=== PATIENT | female | born 1935 | race Caucasian/White ===

== ENCOUNTER 2021-11-02 17:23 | Inpatient (IN) ==
--- NOTE | 2021-11-02 17:31 | ED.ABDFE ---
HPI Time Seen Time Seen by Provider: 11/02/21 17:29 HPI Comment HPI Comment: Acute onset of chest "pressure" earlier today which has moved to her lt upper abd/epigastric region; n/v x one; last bm yesterday which was wnl; she does not feel any heartburn nor has she been burping; no prior episodes like this and no hx heart disease; she was recently released from hospital in [facility] in [place] after a bout with urosepsis. Family member says she's had intermittent abd pain and recurrent n/v for the past three weeks or so. PMH PMH Past Medical History: Diabetes, Dyslipidemia, Hypertension and Hypothyroidism ROS Review of Systems Constitutional: No Symptoms Reported Eyes: No Symptoms Reported ENTM: No Symptoms Reported Respiratoy: No Symptoms Reported Cardiovascular: No Symptoms Reported Genitourinary: No Symptoms Reported Neurological: No Symptoms Reported Musculoskeletal: No Symptoms Reported Integumentary: No Symptoms Reported Hematologic/Lymphatic: No Symptoms Reported Endocrine: No Symptoms Reported Psychiatric: No Symptoms Reported PE Vital Signs Vitals: Temperature 98.3 F Pulse Rate 89 Respiratory Rate 18 Blood Pressure 151/64 O2 Sat by Pulse Oximetry 99 General Limitations: No Limitations and Language Barrier General Appearance: Alert and In No Apparent Distress Head Head Exam: Normal Inspection Eyes Eye exam: Normal Appearance ENT ENT Exam: Normal Exam Neck Neck Exam: Normal Inspection Chest Chest Inspection: Normal Inspection Respiratory Respiratory Exam: Normal Lung Sounds Bilat Cardiovascular Cardiovascular Exam: Regular Rate and Normal Rhythm Abdominal Exam Abdominal Exam: Normal Inspection, Normal Bowel Sounds, Soft and Tenderness (epigastrium) Rectal Rectal Exam: Deferred Back Back Exam: Normal Inspection Extremeties Extremities Exam: Normal Inspection Neurologic Neurological Exam: Alert and Oriented X3 Psychiatric Psychiatric Exam: Normal Affect and Normal Mood Skin Skin Exam: Warm, Dry and Intact MDM Differential Diagnosis Differential Diagnosis- Considerations may include:: Diverticular disease, Gastritus/PUD, Gastroenteritis, Ischemic Bowel and Pancreatitis COURSE Consultation Call Returned: 21:00 (Dr Luke accepts admission.) ROR Labs Reviewed Result Diagrams: 11/02/21 17:40 11/02/21 17:40 Laboratory: WBC 11.8 X10^3/uL (3.6-10.0) H 11/02/21 17:40 RBC 3.63 X10^6/uL (3.5-5.4) 11/02/21 17:40 Hgb 9.4 g/dL (12.0-16.0) L 11/02/21 17:40 Hct 29.2 % (36.0-47.0) L 11/02/21 17:40 MCV 80.3 fL (80.0-100.0) 11/02/21 17:40 MCH 25.9 pg (27.0-34.0) L 11/02/21 17:40 MCHC 32.3 g/dL (33.0-35.0) L 11/02/21 17:40 RDW 20.8 % (11.6-16.5) H 11/02/21 17:40 Plt Count 494 X10^3/uL (150.0-450.0) H 11/02/21 17:40 Plt Count Comment Increased (ADEQUATE) A 11/02/21 17:40 MPV 7.2 fL (7.4-11.0) L 11/02/21 17:40 Neut % (Auto) 73.9 % (42.0-75.0) 11/02/21 17:40 Lymph % (Auto) 18.4 % (21.0-51.0) L 11/02/21 17:40 [place] % (Auto) 5.7 % (0.0-13.0) 11/02/21 17:40 Eos % (Auto) 1.3 % (0.9-2.9) 11/02/21 17:40 Baso % (Auto) 0.7 % (0.2-1.0) 11/02/21 17:40 Neut # (Auto) 8.7 x10^3/uL (2.2-4.8) H 11/02/21 17:40 Lymph # (Auto) 2.2 X10^3/uL (1.3-2.9) 11/02/21 17:40 [place] # (Auto) 0.7 x10^3/uL (0.3-0.8) 11/02/21 17:40 Eos # (Auto) 0.2 x10^3/uL (0.0-0.2) 11/02/21 17:40 Baso # (Auto) 0.1 X10^3/uL (0.0-0.1) 11/02/21 17:40 Absolute Nucleated RBC 0.0 /100WBC 11/02/21 17:40 Plt Morphology Comment Normal (NORMAL) 11/02/21 17:40 RBC Morphology Abnormal (NORMAL) A 11/02/21 17:40 Hypochromasia Slight A 11/02/21 17:40 Anisocytosis Slight A 11/02/21 17:40 Sodium 138 mmol/L (136-145) 11/02/21 17:40 Corrected Sodium 142 mmol/L (136-145) 11/02/21 17:40 Potassium 3.2 mmol/L (3.5-5.1) L 11/02/21 17:40 Chloride 97 mmol/L (98-107) L 11/02/21 17:40 Carbon Dioxide 30.5 mmol/L (21-32) 11/02/21 17:40 BUN 21 mg/dL (7-18) H 11/02/21 17:40 Creatinine 0.94 mg/dL (0.55-1.02) 11/02/21 17:40 Est GFR (MDRD) Af Amer > 60 (>60) 11/02/21 17:40 Est GFR (MDRD) Non-Af > 60 (>60) 11/02/21 17:40 Glucose 257 mg/dL (65-99) H 11/02/21 17:40 Calcium 8.6 mg/dL (8.5-10.1) 11/02/21 17:40 Corrected Calcium 9.9 mg/dL (8.5-10.1) 11/02/21 17:40 Total Bilirubin 0.50 mg/dL (0.2-1.0) 11/02/21 17:40 AST 423 Units/L (15-37) H 11/02/21 17:40 ALT 149 Units/L (12-78) H 11/02/21 17:40 Alkaline Phosphatase 345 Units/L (46-116) H 11/02/21 17:40 Creatine Kinase 27 Units/L (26-192) 11/02/21 17:40 CK-MB (CK-2) < 1.0 ng/mL (0-4.0) 11/02/21 17:40 CK/CKMB % Calc 3.7 % (<4) 11/02/21 17:40 Troponin I < 0.02 ng/mL (0-1.5) 11/02/21 17:40 Total Protein 6.5 g/dL (6.4-8.2) 11/02/21 17:40 Albumin 2.4 g/dL (3.4-5.0) L 11/02/21 17:40 Globulin 4.1 g/dL (2.5-4.5) 11/02/21 17:40 Albumin/Globulin Ratio 0.6 Ratio (1.1-2.1) L 11/02/21 17:40 Lipase 2875 Units/L (73-393) H 11/02/21 17:40 SARS CoV-2 RNA Rapid CLARA Positive (NEGATIVE) A 11/02/21 21:37 XRAY XRAY Interpreted by: Radiologist X-ray Results: ct abd/pelvis: - Status post cholecystectomy andhysterectomy - Urinary bladder contains a Del Rosario catheter - Right-sided double-J stent is noted - Moderate to severe constipation is present Mild peripancreatic inflammatory changes are seen around the head and uncinate process of the pancreas. This may represent acute pancreatitis Opioid Opioid Risk Tool Total: 0 Total Score Risk Category: Low Risk Copyright: Jhonny BEE predicting aberrant behaviors Diagnosis Discharge Problem: Acute hypokalemia, COVID-19 Acute pancreatitis Qualifiers: Pancreatitis type: idiopathic Acute pancreatitis complication: no infection or necrosis Qualified Code(s): K85.00 - Idiopathic acute pancreatitis without necrosis or infection Instructions Instructions: Acute Pancreatitis, [id number] Forms: [facility] Patient Portal Social Distancing
[2021-11-02] MEDS ORDERED: MORPHINE SULFATE INJ 2 MG INJ IVP ONE (17:46)
[2021-11-02] MEDS ORDERED: ZOFRAN INJ 4 MG VIAL IVP ONE (17:46)
[2021-11-02 17:47] LABS: BASOPHILS # (AUTO) 0.1 X10^3/uL (0.0-0.1); BASOPHILS % (AUTO) 0.7 % (0.2-1.0); EOSINOPHILS # (AUTO) 0.2 x10^3/uL (0.0-0.2); EOSINOPHILS % (AUTO) 1.3 % (0.9-2.9); HEMATOCRIT 29.2 % (36.0-47.0); HEMOGLOBIN 9.4 g/dL (12.0-16.0); LYMPHOCYTES # (AUTO) 2.2 X10^3/uL (1.3-2.9); LYMPHOCYTES % (AUTO) 18.4 % (21.0-51.0); MEAN CORPUSCULAR HEMOGLOBIN 25.9 pg (27.0-34.0); MEAN CORPUSCULAR HGB CONC 32.3 g/dL (33.0-35.0); MEAN CORPUSCULAR VOLUME 80.3 fL (80.0-100.0); MEAN PLATELET VOLUME 7.2 fL (7.4-11.0); MONOCYTES # (AUTO) 0.7 x10^3/uL (0.3-0.8); MONOCYTES % (AUTO) 5.7 % (0.0-13.0); NEUTROPHILS # (AUTO) 8.7 x10^3/uL (2.2-4.8); NEUTROPHILS % (AUTO) 73.9 % (42.0-75.0); PLATELET COUNT 494 X10^3/uL (150.0-450.0); RED BLOOD COUNT 3.63 X10^6/uL (3.5-5.4); RED CELL DISTRIBUTION WIDTH 20.8 % (11.6-16.5); WHITE BLOOD COUNT 11.8 X10^3/uL (3.6-10.0)
[2021-11-02] MEDS ORDERED: MORPHINE SULFATE INJ 2 MG INJ ONE (17:49)
[2021-11-02] MEDS ORDERED: ZOFRAN INJ 4 MG VIAL ONE (17:49)
[2021-11-02 17:59] LABS: ANISOCYTOSIS SLIGHT; HYPOCHROMASIA SLIGHT; PLATELET MORPHOLOGY COMMENT NORMAL (NORMAL)
[2021-11-02 18:21] LABS: ALANINE AMINOTRANSFERASE 149 Units/L (12-78); ALBUMIN 2.4 g/dL (3.4-5.0); ALKALINE PHOSPHATASE 345 Units/L (46-116); ASPARTATE AMINO TRANSFERASE 423 Units/L (15-37); BLOOD UREA NITROGEN 21 mg/dL (7-18); CALCIUM 8.6 mg/dL (8.5-10.1); CARBON DIOXIDE 30.5 mmol/L (21-32); CHLORIDE 97 mmol/L (98-107); CKMB % 3.7 % (<4); COR CA(FOR HYPOALB) 9.9 mg/dL (8.5-10.1); COR NA(FOR HYPERGLY) 142 mmol/L (136-145); CREATINE KINASE 27 Units/L (26-192); CREATINE KINASE MB < 1.0 ng/mL (0-4.0); CREATININE 0.94 mg/dL (0.55-1.02); SODIUM 138 mmol/L (136-145); TOTAL PROTEIN 6.5 g/dL (6.4-8.2); TROPONIN I < 0.02 ng/mL (0-1.5); eGFR NON BLACK RACES > 60 (>60)
[2021-11-02 18:40] LABS: LIPASE 2875 Units/L (73-393)
[2021-11-02] MEDS ORDERED: NS 1,000 ML IV 1,000 ML IV ONE (18:46)
[2021-11-02] MEDS ORDERED: K-RIDER 10 MEQ/NS 100 ML 10 MEQ/100 ML BAG IV ONE ×2 (18:53→19:58)
[2021-11-02] MEDS ORDERED: NS 1,000 ML IV 1,000 ML ONE ×2 (19:58→23:42)
[2021-11-02] MEDS ORDERED: NEURONTIN CAP 300 MG PO ONE (20:10)
--- NOTE | 2021-11-02 20:24 | CT ---
STUDY: CT ABDOMEN AND PELVIS WITH IV CONTRASTCOMPARISON: NoneTECHNIQUE: Axial images were acquired of the abdomen and pelvis with IV contrast. Sagittal and coronal reformatted images were provided. All images were reviewed in a variety of windows and levels.RADIATION REDUCTION TECHNIQUE: Automated exposure control, adjustment of the mA and/or kV according to patient size, or iterative reconstruction techniques were used.HISTORY: Chest pain and epigastric pain. Patient also has left upper quadrant pain.FINDINGS:LOWER THORAX: The visualized lower lung zones are clear. The heart size is within normal limits. There is no evidence of a pericardial effusion.LIVER: No intrahepatic focal lesions are seen. No evidence of intrahepatic or extrahepatic duct dilation.GALLBLADDER: The gallbladder has been surgically removed.SPLEEN: The spleen enhances homogenously and is unremarkable.PANCREAS: Mild peripancreatic inflammatory changes are seen around the head and uncinate process of the pancreas.AGRENAL GLANDS: The adrenal glands enhance homogenously and are unremarkable.: The kidneys enhance homogenously. Their collecting system is of normal caliber.Right-sided double-J stent is seen with proximal tip coiled in the renal pelvis and distal tip coiled in the urinary bladder. The patient is status post hysterectomy.URINARY BLADDER: The urinary bladder contains a Del Rosario catheter and is empty and collapsed.VESSELS: The abdominal aorta is normal in size without evidence of aneurysm or dissection. The celiac artery, superior mesenteric artery, cheesh-na renal arteries, and inferior mesenteric artery are patent.GI: The stomach and small bowel is unremarkable. Moderate to severe constipation is noted. There are no inflammatory changes seen in the right lower quadrant to suggest secondary signs of acute appendicitis. The appendix is not visualized on this exam.LYMPHNODES AND MESSENTERY: There is no evidence of retroperitoneal lymphadenopathy.BONES: The visualized bones demonstrate degenerative changes. There are no concerning lytic or blastic lesions identified.IMPRESSION:- Status post cholecystectomy and hysterectomy- Urinary bladder contains a Del Rosario catheter- Right-sided double-J stent is noted- Moderate to severe constipation is present- Mild peripancreatic inflammatory changes are seen around the head and uncinate process of the pancreas. This may represent acute pancreatitisElectronically signed by: Hong Gifford (Nov 02, 2021 20:23:01)
[2021-11-02] MEDS ORDERED: NovoLIN R (or HumuLIN R) SUBCUT PRN (21:23)
[2021-11-02] MEDS ORDERED: NS 1,000 ML IV 1,000 ML IV SCH (22:00)
--- NOTE | 2021-11-02 22:31 | RAD ---
STUDY: FRONTAL VIEW CHESTCOMPARISON: NoneHISTORY: CHEST PAINS, ABD PAINSFINDINGS:No focal consolidation is seen.The heart size is within normal limits.The mediastinum is unremarkable.There is no evidence of pleural effusion or gross pneumothorax.The trachea is midline.IMPRESSION:1. No focal consolidation is seen.2. The heart size is normal.Electronically signed by: Hong Gifford (Nov 02, 2021 22:30:16)
[2021-11-02] MEDS: NS 1,000 ML IV 1,000 ML IV SCH (23:45)
[2021-11-03 02:39] VITALS: BMI 35.4
[2021-11-03 05:35] LABS: BASOPHILS # (AUTO) 0.1 X10^3/uL (0.0-0.1); BASOPHILS % (AUTO) 0.4 % (0.2-1.0); EOSINOPHILS # (AUTO) 0.1 x10^3/uL (0.0-0.2); EOSINOPHILS % (AUTO) 0.6 % (0.9-2.9); HEMATOCRIT 26.8 % (36.0-47.0); HEMOGLOBIN 8.8 g/dL (12.0-16.0); LYMPHOCYTES # (AUTO) 2.2 X10^3/uL (1.3-2.9); LYMPHOCYTES % (AUTO) 16.3 % (21.0-51.0); MEAN CORPUSCULAR HEMOGLOBIN 26.2 pg (27.0-34.0); MEAN CORPUSCULAR HGB CONC 32.9 g/dL (33.0-35.0); MEAN CORPUSCULAR VOLUME 79.6 fL (80.0-100.0); MEAN PLATELET VOLUME 7.4 fL (7.4-11.0); MONOCYTES # (AUTO) 0.8 x10^3/uL (0.3-0.8); MONOCYTES % (AUTO) 5.6 % (0.0-13.0); NEUTROPHILS # (AUTO) 10.6 x10^3/uL (2.2-4.8); NEUTROPHILS % (AUTO) 77.1 % (42.0-75.0); PLATELET COUNT 478 X10^3/uL (150.0-450.0); RED BLOOD COUNT 3.37 X10^6/uL (3.5-5.4); RED CELL DISTRIBUTION WIDTH 20.8 % (11.6-16.5); WHITE BLOOD COUNT 13.7 X10^3/uL (3.6-10.0)
[2021-11-03 05:38] LABS: ALANINE AMINOTRANSFERASE 597 Units/L (12-78); ALBUMIN 2.3 g/dL (3.4-5.0); ALKALINE PHOSPHATASE 528 Units/L (46-116); AMYLASE 329 Units/L (25-115); ASPARTATE AMINO TRANSFERASE 906 Units/L (15-37); BLOOD UREA NITROGEN 19 mg/dL (7-18); CALCIUM 8.2 mg/dL (8.5-10.1); CARBON DIOXIDE 30.9 mmol/L (21-32); CHLORIDE 99 mmol/L (98-107); COR CA(FOR HYPOALB) 9.6 mg/dL (8.5-10.1); COR NA(FOR HYPERGLY) 141 mmol/L (136-145); CREATININE 0.84 mg/dL (0.55-1.02); MAGNESIUM 1.7 mg/dL (1.7-2.9); SODIUM 138 mmol/L (136-145); TOTAL PROTEIN 6.3 g/dL (6.4-8.2); eGFR NON BLACK RACES > 60 (>60)
[2021-11-03 05:55] LABS: LIPASE 1742 Units/L (73-393)
[2021-11-03 06:02] LABS: ANISOCYTOSIS 1+; HYPOCHROMASIA SLIGHT; PLATELET MORPHOLOGY COMMENT NORMAL (NORMAL)
[2021-11-03] MEDS: NS 1,000 ML IV 1,000 ML IV SCH ×4 (08:50→22:07)
[2021-11-03] MEDS: NEURONTIN CAP 300 MG PO SCH ×4 (10:04→21:01)
[2021-11-03] MEDS ORDERED: MORPHINE SULFATE INJ 2 MG INJ IVP PRN (11:54)
[2021-11-03] MEDS ORDERED: POTASSIUM CHL 40 MEQ/NS 0.45% 500 ML IV PRN (15:21)
[2021-11-03] MEDS ORDERED: POTASSIUM CHL 60 MEQ/NS 0.45% 500 ML IV PRN (15:21)
[2021-11-03] MEDS ORDERED: KLOR-CON PO PRN (15:21)
[2021-11-03] MEDS ORDERED: POTASSIUM CHLORIDE LIQ 20 MEQ UDC PO PRN (15:21)
[2021-11-03] MEDS ORDERED: MICRO K EXTEN CAP 10 MEQ PO PRN (15:21)
[2021-11-03] MEDS ORDERED: K-RIDER 10 MEQ/NS 100 ML 10 MEQ/100 ML BAG IV PRN (15:21)
[2021-11-03] MEDS: MAGNESIUM SULFATE 1 GRAM/100 mL PREMIX 1 G/100 ML BAG IV PRN ×2 (16:53→20:31)
[2021-11-03] MEDS: K-DUR TAB 20 MEQ PO PRN (16:53)
[2021-11-03] MEDS: NovoLIN R (or HumuLIN R) SUBCUT PRN (21:00)
[2021-11-04] MEDS: NEURONTIN CAP 300 MG PO SCH ×2 (05:04→14:05)
[2021-11-04 05:11] LABS: BASOPHILS # (AUTO) 0.1 X10^3/uL (0.0-0.1); BASOPHILS % (AUTO) 0.6 % (0.2-1.0); EOSINOPHILS # (AUTO) 0.1 x10^3/uL (0.0-0.2); EOSINOPHILS % (AUTO) 1.3 % (0.9-2.9); HEMATOCRIT 25.5 % (36.0-47.0); HEMOGLOBIN 8.5 g/dL (12.0-16.0); LYMPHOCYTES # (AUTO) 1.9 X10^3/uL (1.3-2.9); LYMPHOCYTES % (AUTO) 18.6 % (21.0-51.0); MEAN CORPUSCULAR HEMOGLOBIN 26.8 pg (27.0-34.0); MEAN CORPUSCULAR HGB CONC 33.5 g/dL (33.0-35.0); MONOCYTES # (AUTO) 0.8 x10^3/uL (0.3-0.8); MONOCYTES % (AUTO) 7.4 % (0.0-13.0); NEUTROPHILS # (AUTO) 7.6 x10^3/uL (2.2-4.8); NEUTROPHILS % (AUTO) 72.1 % (42.0-75.0); PLATELET COUNT 463 X10^3/uL (150.0-450.0); RED BLOOD COUNT 3.18 X10^6/uL (3.5-5.4); RED CELL DISTRIBUTION WIDTH 20.2 % (11.6-16.5); WHITE BLOOD COUNT 10.5 X10^3/uL (3.6-10.0)
[2021-11-04 05:21] LABS: ALANINE AMINOTRANSFERASE 290 Units/L (12-78); ALBUMIN 2.1 g/dL (3.4-5.0); ALKALINE PHOSPHATASE 362 Units/L (46-116); ASPARTATE AMINO TRANSFERASE 208 Units/L (15-37); BLOOD UREA NITROGEN 12 mg/dL (7-18); CARBON DIOXIDE 30.1 mmol/L (21-32); CHLORIDE 103 mmol/L (98-107); COR CA(FOR HYPOALB) 9.5 mg/dL (8.5-10.1); COR NA(FOR HYPERGLY) 143 mmol/L (136-145); MAGNESIUM 2.2 mg/dL (1.7-2.9); SODIUM 140 mmol/L (136-145); TOTAL PROTEIN 5.8 g/dL (6.4-8.2); eGFR NON BLACK RACES > 60 (>60)
[2021-11-04 05:40] LABS: ANISOCYTOSIS 1+; HYPOCHROMASIA SLIGHT; PLATELET MORPHOLOGY COMMENT NORMAL (NORMAL)
[2021-11-04 05:54] LABS: AMYLASE 72 Units/L (25-115); LIPASE 279 Units/L (73-393)
[2021-11-04] MEDS: NovoLIN R (or HumuLIN R) SUBCUT PRN (05:55)
[2021-11-04] MEDS: K-DUR TAB 20 MEQ PO PRN ×2 (05:55→14:05)
[2021-11-04] MEDS: NS 1,000 ML IV 1,000 ML IV SCH ×2 (07:52→14:59)
--- NOTE | 2021-11-04 08:07 | DR.H&P ---
H&P History & Physical for Day of: H&P Date: 11/03/21 Chief Complaint Chief Complaint: Abdominal pain Allergies Allergies Allergy/AdvReac Type Severity Reaction Status Date / Time codeine Allergy Verified 11/02/21 17:49 History of Present Illness History of Present Illness: Pt is a 85 year old female past medical history of Hypertension, Diabetes, Hypothyroidism, presenting after having worsening abdominal pain. She reports symptoms started last few days. Denies fevers, chills, shortness of breath. Labs/imaging: Wbc 13.7, Hgb 8.8, Plt 478, Na 138, K 3.4, Creatinine 0.84, Glucose 241, AST 906, ALT 597, ALP 528, Amylase 329, Lipase 1742, Cardiac enzymes negative, CXR: no acute cardiopulmonary disease. CTAP: Moderate to severe constipation is present Mild peripancreatic inflammatory changes are seen around the head and uncinate process of the pancreas. This may represent acute pancreatitis. Pt was admitted for acute pancreatitis. She was started on IVF NS@125ml/h, home medications restarted. She was initially NPO and will advance diet to clear liquids as tolerated. She denies any respiratory distress and does not require any supplemental oxygen at this time. Will continue to monitor and follow up labs in the morning. Past Medical History Past Medical History: Diabetes, Dyslipidemia, Hypertension and Hypothyroidism Past Surgical History Surgical History: Cholecystectomy, W[employer] Surgery and Ortho Surgery Social History Does patient currently use any type of tobacco product: No Have you used tobacco products in the last 12 months: No Type of Tobacco Use: None Does any household member use tobacco: No Alcohol Use: None Drug Use: None Medications Home Medications: codeine Allergy (Verified 11/02/21 17:49) CONTINUE taking the following medications allopurinol 100 mg PO DAILY 11/02/21 [History] artificial tears(hypromellose) [GenTeal Tears Severe Gel] 1 drp OPHTHALMIC (EYE) QHS 11/02/21 [History] atorvastatin 10 mg PO QHS 11/02/21 [History] calcium carbonate [Calcium 600] 600 mg PO TID 11/02/21 [History] carboxymethylcell-hypromellose 1 drp OPHTHALMIC (EYE) QID 11/02/21 [History] cholecalciferol (vitamin D3) 25 mcg PO DAILY 11/02/21 [History] docusate sodium [Colace] 100 mg PO BID 11/02/21 [History] gabapentin 300 mg PO TID 11/02/21 [History] hydralazine 50 mg PO BID 11/02/21 [History] hydrocodone-acetaminophen 1 tab PO Q6H PRN 11/02/21 [History] insulin NPH and regular human [Novolin 70-30 FlexPen U-100] 20 unit SUBCUT BID 11/02/21 [History] insulin lispro [Humalog Pen] 0 sliding scale dose SUBCUT ACHS 11/02/21 [History] lactobacillus bifidus 6 cell PO BID 11/02/21 [History] lactulose 30 g PO DAILY 11/02/21 [History] levothyroxine 75 mcg PO DAILY 11/02/21 [History] linaclotide [Linzess] 145 mcg PO QAM 11/02/21 [History] multivitamin 1 tab PO BID 11/02/21 [History] pantoprazole [Protonix] 40 mg PO BID 11/02/21 [History] polyethylene glycol 3350 17 g PO BID 11/02/21 [History] tamsulosin 0.4 mg PO QHS 11/02/21 [History] tramadol 50 mg PO BID 11/02/21 [History] Labs Result Diagrams: 11/04/21 03:52 11/04/21 03:52 Labs: Laboratory WBC 10.5 X10^3/uL (3.6-10.0) H 11/04/21 03:52 RBC 3.18 X10^6/uL (3.5-5.4) L 11/04/21 03:52 Hgb 8.5 g/dL (12.0-16.0) L 11/04/21 03:52 Hct 25.5 % (36.0-47.0) L 11/04/21 03:52 MCV 80.0 fL (80.0-100.0) 11/04/21 03:52 MCH 26.8 pg (27.0-34.0) L 11/04/21 03:52 MCHC 33.5 g/dL (33.0-35.0) 11/04/21 03:52 RDW 20.2 % (11.6-16.5) H 11/04/21 03:52 Plt Count 463 X10^3/uL (150.0-450.0) H 11/04/21 03:52 Plt Count Comment Increased (ADEQUATE) A 11/04/21 03:52 MPV 8.0 fL (7.4-11.0) 11/04/21 03:52 Neut % (Auto) 72.1 % (42.0-75.0) 11/04/21 03:52 Lymph % (Auto) 18.6 % (21.0-51.0) L 11/04/21 03:52 [place] % (Auto) 7.4 % (0.0-13.0) 11/04/21 03:52 Eos % (Auto) 1.3 % (0.9-2.9) 11/04/21 03:52 Baso % (Auto) 0.6 % (0.2-1.0) 11/04/21 03:52 Neut # (Auto) 7.6 x10^3/uL (2.2-4.8) H 11/04/21 03:52 Lymph # (Auto) 1.9 X10^3/uL (1.3-2.9) 11/04/21 03:52 [place] # (Auto) 0.8 x10^3/uL (0.3-0.8) 11/04/21 03:52 Eos # (Auto) 0.1 x10^3/uL (0.0-0.2) 11/04/21 03:52 Baso # (Auto) 0.1 X10^3/uL (0.0-0.1) 11/04/21 03:52 Absolute Nucleated RBC 0.0 /100WBC 11/04/21 03:52 Plt Morphology Comment Normal (NORMAL) 11/04/21 03:52 RBC Morphology Abnormal (NORMAL) A 11/04/21 03:52 Hypochromasia Slight A 11/04/21 03:52 Anisocytosis 1+ A 11/04/21 03:52 Sodium 140 mmol/L (136-145) 11/04/21 03:52 Corrected Sodium 143 mmol/L (136-145) 11/04/21 03:52 Potassium 3.2 mmol/L (3.5-5.1) L 11/04/21 03:52 Chloride 103 mmol/L (98-107) 11/04/21 03:52 Carbon Dioxide 30.1 mmol/L (21-32) 11/04/21 03:52 BUN 12 mg/dL (7-18) 11/04/21 03:52 Creatinine 0.70 mg/dL (0.55-1.02) 11/04/21 03:52 Est GFR (MDRD) Af Amer > 60 (>60) 11/04/21 03:52 Est GFR (MDRD) Non-Af > 60 (>60) 11/04/21 03:52 Glucose 218 mg/dL (65-99) H 11/04/21 03:52 POC Glucose (mg/dL) 298 mg/dL (65-99) H 11/03/21 19:36 Calcium 8.0 mg/dL (8.5-10.1) L 11/04/21 03:52 Corrected Calcium 9.5 mg/dL (8.5-10.1) 11/04/21 03:52 Magnesium 2.2 mg/dL (1.7-2.9) 11/04/21 03:52 Total Bilirubin 0.20 mg/dL (0.2-1.0) 11/04/21 03:52 AST 208 Units/L (15-37) H 11/04/21 03:52 ALT 290 Units/L (12-78) H 11/04/21 03:52 Alkaline Phosphatase 362 Units/L (46-116) H 11/04/21 03:52 Creatine Kinase 27 Units/L (26-192) 11/02/21 17:40 CK-MB (CK-2) < 1.0 ng/mL (0-4.0) 11/02/21 17:40 CK/CKMB % Calc 3.7 % (<4) 11/02/21 17:40 Troponin I < 0.02 ng/mL (0-1.5) 11/02/21 17:40 Total Protein 5.8 g/dL (6.4-8.2) L 11/04/21 03:52 Albumin 2.1 g/dL (3.4-5.0) L 11/04/21 03:52 Globulin 3.7 g/dL (2.5-4.5) 11/04/21 03:52 Albumin/Globulin Ratio 0.6 Ratio (1.1-2.1) L 11/04/21 03:52 Amylase 72 Units/L (25-115) 11/04/21 03:52 Lipase 279 Units/L (73-393) 11/04/21 03:52 SARS CoV-2 RNA Rapid CLARA Positive (NEGATIVE) A 11/02/21 21:37 Review of Systems Constitutional: Weakness Eyes: No Symptoms Reported ENT: No Symptoms Reported Respiratory: No Symptoms Reported Cardiovascular: No Symptoms Reported Gastrointestinal: Nausea, Abdominal Pain and Constipation; denies Diarrhea Genitourinary: No Symptoms Reported Musculoskeletal: No Symptoms Reported Skin: No Symptoms Reported Neurological: No Symptoms Reported Physical Exam Vital Signs: Temperature 98.4 F Pulse Rate [Right Radial] 67 Pulse Rate 89 Respiratory Rate 15 Blood Pressure [Left Arm] 116/77 Blood Pressure 151/64 O2 Sat by Pulse Oximetry 100 Oriented: Normal Eyes: Normal Ear: Normal Nose: Normal Throat: Normal Respiratory: Clear Throughout Cardiovascular: Normal : Normal Auscultation: Bowel Sounds: Normal Palpation: Normal Tenderness: Epigastric, Periumbilical and Moderate Skin: Normal Musculoskeletal: Normal Psychiatric: Normal Mood Description: Calm and Appropriate Affect: Normal Speech Pattern: Clear and Appropriate Assessment/Plan (1) Acute pancreatitis: Qualifiers: Acute pancreatitis complication: no infection or necrosis Pancreatitis type: idiopathic Qualified Code(s): K85.00 - Idiopathic acute pancreatitis without necrosis or infection Status: Acute Plan: IVF, Clear liquid diet (2) COVID-19: Status: Acute Review H&P Reviewed: Yes Patient was examined?: Yes
[2021-11-04 16:06] VITALS: BP 133/63
--- NOTE | 2021-11-05 10:07 | PCM.DCPLAN ---
DISCHARGE SUMMARY Admission Date Date of Admission: 11/02/21 Discharge Date Discharge Date: 11/04/21 Admission Diagnoses (1) Acute pancreatitis: Status: Acute (2) COVID-19: Status: Acute Discharge Diagnoses Discharge Diagnosis: 1. Pancreatitis resolved 2. Covid-19 Negative. 3. Abnormal LFT's 4. Anemia 5. HTN 6. DM2 Discharge Medications Discharge Medications: Home Medication List GenTeal Tears Severe Gel 1 drp OPHTHALMIC (EYE) QHS 11/02/21 [History] Linzess 145 mcg PO QAM 11/02/21 [History] Novolin 70-30 FlexPen U-100 20 unit SUBCUT BID 11/02/21 [History] allopurinol 100 mg PO DAILY 11/02/21 [History] atorvastatin 10 mg PO QHS 11/02/21 [History] calcium carbonate [Calcium 600] 600 mg PO TID 11/02/21 [History] carboxymethylcell-hypromellose 1 drp OPHTHALMIC (EYE) QID 11/02/21 [History] cholecalciferol (vitamin D3) 25 mcg PO DAILY 11/02/21 [History] docusate sodium [Colace] 100 mg PO BID 11/02/21 [History] gabapentin 300 mg PO TID 11/02/21 [History] hydralazine 50 mg PO BID 11/02/21 [History] hydrocodone-acetaminophen 1 tab PO Q6H PRN 11/02/21 [History] insulin lispro 0 sliding scale dose SUBCUT ACHS 11/02/21 [History] lactobacillus bifidus 6 cell PO BID 11/02/21 [History] lactulose 30 g PO DAILY 11/02/21 [History] levothyroxine 75 mcg PO DAILY 11/02/21 [History] multivitamin 1 tab PO BID 11/02/21 [History] pantoprazole [Protonix] 40 mg PO BID 11/02/21 [History] polyethylene glycol 3350 17 g PO BID 11/02/21 [History] tamsulosin 0.4 mg PO QHS 11/02/21 [History] tramadol 50 mg PO BID 11/02/21 [History] Prescriptions: Hospital Course Vital Signs: Temperature 98.0 F Pulse Rate [Right Radial] 71 Pulse Rate 89 Respiratory Rate 19 Blood Pressure [Left Arm] 133/63 Blood Pressure 151/64 O2 Sat by Pulse Oximetry 99 Latest Lab Results: Laboratory Last Values WBC 10.5 X10^3/uL (3.6-10.0) H 11/04/21 03:52 RBC 3.18 X10^6/uL (3.5-5.4) L 11/04/21 03:52 Hgb 8.5 g/dL (12.0-16.0) L 11/04/21 03:52 Hct 25.5 % (36.0-47.0) L 11/04/21 03:52 MCV 80.0 fL (80.0-100.0) 11/04/21 03:52 MCH 26.8 pg (27.0-34.0) L 11/04/21 03:52 MCHC 33.5 g/dL (33.0-35.0) 11/04/21 03:52 RDW 20.2 % (11.6-16.5) H 11/04/21 03:52 Plt Count 463 X10^3/uL (150.0-450.0) H 11/04/21 03:52 Plt Count Comment Increased (ADEQUATE) A 11/04/21 03:52 MPV 8.0 fL (7.4-11.0) 11/04/21 03:52 Neut % (Auto) 72.1 % (42.0-75.0) 11/04/21 03:52 Lymph % (Auto) 18.6 % (21.0-51.0) L 11/04/21 03:52 [place] % (Auto) 7.4 % (0.0-13.0) 11/04/21 03:52 Eos % (Auto) 1.3 % (0.9-2.9) 11/04/21 03:52 Baso % (Auto) 0.6 % (0.2-1.0) 11/04/21 03:52 Neut # (Auto) 7.6 x10^3/uL (2.2-4.8) H 11/04/21 03:52 Lymph # (Auto) 1.9 X10^3/uL (1.3-2.9) 11/04/21 03:52 [place] # (Auto) 0.8 x10^3/uL (0.3-0.8) 11/04/21 03:52 Eos # (Auto) 0.1 x10^3/uL (0.0-0.2) 11/04/21 03:52 Baso # (Auto) 0.1 X10^3/uL (0.0-0.1) 11/04/21 03:52 Absolute Nucleated RBC 0.0 /100WBC 11/04/21 03:52 Plt Morphology Comment Normal (NORMAL) 11/04/21 03:52 RBC Morphology Abnormal (NORMAL) A 11/04/21 03:52 Hypochromasia Slight A 11/04/21 03:52 Anisocytosis 1+ A 11/04/21 03:52 Sodium 140 mmol/L (136-145) 11/04/21 03:52 Corrected Sodium 143 mmol/L (136-145) 11/04/21 03:52 Potassium 3.4 mmol/L (3.5-5.1) L 11/04/21 09:13 Chloride 103 mmol/L (98-107) 11/04/21 03:52 Carbon Dioxide 30.1 mmol/L (21-32) 11/04/21 03:52 BUN 12 mg/dL (7-18) 11/04/21 03:52 Creatinine 0.70 mg/dL (0.55-1.02) 11/04/21 03:52 Est GFR (MDRD) Af Amer > 60 (>60) 11/04/21 03:52 Est GFR (MDRD) Non-Af > 60 (>60) 11/04/21 03:52 Glucose 218 mg/dL (65-99) H 11/04/21 03:52 POC Glucose (mg/dL) 209 mg/dL (65-99) H 11/04/21 16:18 Calcium 8.0 mg/dL (8.5-10.1) L 11/04/21 03:52 Corrected Calcium 9.5 mg/dL (8.5-10.1) 11/04/21 03:52 Magnesium 2.2 mg/dL (1.7-2.9) 11/04/21 03:52 Total Bilirubin 0.20 mg/dL (0.2-1.0) 11/04/21 03:52 AST 208 Units/L (15-37) H 11/04/21 03:52 ALT 290 Units/L (12-78) H 11/04/21 03:52 Alkaline Phosphatase 362 Units/L (46-116) H 11/04/21 03:52 Creatine Kinase 27 Units/L (26-192) 11/02/21 17:40 CK-MB (CK-2) < 1.0 ng/mL (0-4.0) 11/02/21 17:40 CK/CKMB % Calc 3.7 % (<4) 11/02/21 17:40 Troponin I < 0.02 ng/mL (0-1.5) 11/02/21 17:40 Total Protein 5.8 g/dL (6.4-8.2) L 11/04/21 03:52 Albumin 2.1 g/dL (3.4-5.0) L 11/04/21 03:52 Globulin 3.7 g/dL (2.5-4.5) 11/04/21 03:52 Albumin/Globulin Ratio 0.6 Ratio (1.1-2.1) L 11/04/21 03:52 Amylase 72 Units/L (25-115) 11/04/21 03:52 Lipase 279 Units/L (73-393) 11/04/21 03:52 SARS CoV-2 RNA Rapid CLARA Negative (NEGATIVE) 11/04/21 08:39 Hospital Course: The patient improved fairly rapidly after IV fluid was given and pain control. Over the 3 days while she was in the hospital her Lipase and Amylase normalized. She was adamant on the 2nd hospital day about going home. Cardiac enzymes were done and all were negative. CT abdomen showed fat stranding around the pancreas consistant with acute pancreatitis. By the 3rd hospital day she insisted of going home. She is stable at this time. It is noted that she is anemic with a Hb of 8.5 but her vitals are stable. She denies melena. Repeat Covid testing today revealed a negative Covid test. Del Rosario cath was removed and bladder training was done. The patient urinated later in the day and she was discharged home. She will be following up with me in a week. Instructions Instructions: Hypokalemia COVID-19 Frequently Asked Questions Acute Pancreatitis, [id number] How to Wear and Take Off Your Mask - [facility] (02/28/2021) Pancreatitis Eating Plan 10 Things You Can Do to Manage Your COVID-19 Symptoms at Home - [facility] (05/30/2020) COVID-19 Acute Pancreatitis Forms: Excuse From Work or School Precautions for COVID19 [facility] Patient Portal Social Distancing
== END 2021-11-04 17:50 | disposition home health service (06) | DRG 177 ==
LOC: ER 17:23 → U 23:40 → INTOOBSV 23:40 → ICU 11-03 11:45
PROVIDERS: ADMIT Internal Medicine; ATTEND Family Medicine

== ENCOUNTER 2021-12-10 12:25 | Inpatient (IN) ==
[2021-12-10 12:43] VITALS: BMI 34.0
[2021-12-10] MEDS ORDERED: NS 500 ML IV 500 ML IV ONE ×3 (13:42→19:30)
--- NOTE | 2021-12-10 13:46 | DR.FEVERAD ---
HPI Time seen Time Seen by Provider: 12/10/21 13:37 PCP Primary Care Physician: DR. VERDUZCO Complaints/Symptoms Chief Complaint Doctor Comments: 86 y/o female started running low grade temp yesterday. + increasing weakness, was a bit confused, having a slight cough. No abdominal pain, N/V, diarrhea. Has a string odor to her urine, but no dysuria or frequency. Having pain of the left heel, has a pressure sore there. Pain is sharp, constant, does not radiate. Is worse with palpation or movement of her left foot, nothing makes it better. Chief Complaint:: PT ARRIVED PER [facility] FROM HOME. EMS STATES PT'S FAMILY MEMBER STATES PT HAS BEEN RUNNY FEVER ONSET EARLIER TODAY. PT ALSO C/O CHRONIC LEFT FOOT PAIN. PT HAS BED SORE NOTED TO BACK OF HEEL OF LEFT FOOT. BANDAGE NOTED, CLEAN & DRY. COVID-19 Coronavirus risk:travel/contact w/high risk person: No Has patient experienced Coronavirus symptoms: No Coronavirus symptoms experienced: Fever Nurses notes reviewed Nurses Notes Review: Yes Source History Provided: Patient Mode of Arrival Mode of Arrival: EMS Timing Onset of Chief Complaint: 12/10/21 PMH PMH Past Medical History: Yes Past Medical History: Diabetes, Dyslipidemia, Hypertension and Hypothyroidism Past Surgical History: Yes Surgical History: Cholecystectomy, [employer] Surgery and Ortho Surgery Family History History of Family Medical Conditions: Yes Family Medical History: Diabetes Mellitus Social History Do you use any recreational Drugs:: No Travel Risk Coronavirus risk:travel/contact w/high risk person: No Has patient experienced Coronavirus symptoms: No Infectious screening Have you traveled outside the country in the last 6 months?: No Isolation: Standard ROS Review of Systems Constitutional: Fever and Weakness Eyes: No Symptoms Reported ENTM: No Symptoms Reported Respiratoy: Non-Productive Cough; negative Short of Breath Cardiovascular: No Symptoms Reported Gastrointestinal/Abdominal: No Symptoms Reported Genitourinary: Other (+ strong odor to urine) Neurological: Weakness Musculoskeletal: Left and Foot Integumentary: No Symptoms Reported Hematologic/Lymphatic: No Symptoms Reported Psychiatric: No Symptoms Reported All Other Systems: Reviewed and Negative PE Vital Signs Vitals: Temperature 99.8 F Pulse Rate 86 Respiratory Rate 47 Blood Pressure [Left Arm] 133/63 Blood Pressure 118/87 O2 Sat by Pulse Oximetry 100 General Limitations: No Limitations General Appearance: Alert and In No Apparent Distress Head Head Exam: Normal Inspection Eyes Eye exam: Normal Appearance, PERRL and EOMI ENT ENT Exam: Normal Exam Neck Neck Exam: Normal Inspection and Full ROM; negative Tenderness Respiratory Respiratory Exam: Normal Lung Sounds Bilat; negative Accessory Muscle Use and Respiratory Distress Respiratory Exam: Bilateral: Clear to Auscultation Cardiovascular Cardiovascular Exam: Regular Rate, Normal Rhythm and Normal Heart Sounds Abdominal Exam Abdominal Exam: Normal Inspection, Normal Bowel Sounds and Soft; negative Tenderness Extremities Extremities Exam: Other (Left heel - + chronic decubitus, medial, 3 x 5 cms with local tenderness. ) Neurologic Neurological Exam: Alert, Oriented X3 and CN II-XII Intact; negative Motor Sensory Deficit Psychiatric Psychiatric Exam: Normal Affect Skin Skin Exam: Warm and Dry MDM Differential Diagnosis Differential Diagnosis: UTI and Viral syndrome (Covid,flu) COURSE Treatment Treatment: 86 y/o female ill x 1-2 days. W/u initiated. Pt with UTI, osteomyelitis. Given IV antibiotics. Discussed with her covering attending. Will be admitted, ROR Labs Reviewed Laboratory Results Reviewed?: Yes Result Diagrams: 12/12/21 05:44 12/12/21 05:44 Laboratory: 12/10/21 14:03 Urine,Catheterized Urine Culture - Preliminary 12/10/21 14:04 Blood Blood Culture - Preliminary 12/10/21 14:00 Blood Blood Culture - Preliminary WBC 21.1 X10^3/uL (3.6-10.0) H 12/10/21 14:00 RBC 3.77 X10^6/uL (3.5-5.4) 12/10/21 14:00 Hgb 9.3 g/dL (12.0-16.0) L 12/10/21 14:00 Hct 28.6 % (36.0-47.0) L 12/10/21 14:00 MCV 76.0 fL (80.0-100.0) L 12/10/21 14:00 MCH 24.8 pg (27.0-34.0) L 12/10/21 14:00 MCHC 32.6 g/dL (33.0-35.0) L 12/10/21 14:00 RDW 21.1 % (11.6-16.5) H 12/10/21 14:00 Plt Count 508 X10^3/uL (150.0-450.0) H 12/10/21 14:00 Plt Count Comment Increased (ADEQUATE) A 12/10/21 14:00 MPV 7.6 fL (7.4-11.0) 12/10/21 14:00 Neut % (Auto) 80.8 % (42.0-75.0) H 12/10/21 14:00 Lymph % (Auto) 12.4 % (21.0-51.0) L 12/10/21 14:00 [place] % (Auto) 5.6 % (0.0-13.0) 12/10/21 14:00 Eos % (Auto) 0.3 % (0.9-2.9) L 12/10/21 14:00 Baso % (Auto) 0.9 % (0.2-1.0) 12/10/21 14:00 Neut # (Auto) 17.1 x10^3/uL (2.2-4.8) H 12/10/21 14:00 Lymph # (Auto) 2.6 X10^3/uL (1.3-2.9) 12/10/21 14:00 [place] # (Auto) 1.2 x10^3/uL (0.3-0.8) H 12/10/21 14:00 Eos # (Auto) 0.1 x10^3/uL (0.0-0.2) 12/10/21 14:00 Baso # (Auto) 0.2 X10^3/uL (0.0-0.1) H 12/10/21 14:00 Absolute Nucleated RBC 0.0 /100WBC 12/10/21 14:00 Total Counted 100 12/10/21 14:00 Neutrophils % (Manual) 81 % (39-76) H 12/10/21 14:00 Lymphocytes % (Manual) 13 % (13-43) 12/10/21 14:00 Monocytes % (Manual) 5 % (4-9) 12/10/21 14:00 Eosinophils % (Manual) 1 % (0-6) 12/10/21 14:00 Plt Morphology Comment Normal (NORMAL) 12/10/21 14:00 RBC Morphology Abnormal (NORMAL) A 12/10/21 14:00 Anisocytosis 1+ A 12/10/21 14:00 Sodium 141 mmol/L (136-145) 12/10/21 14:04 Corrected Sodium TNP 12/10/21 14:04 Potassium 2.6 mmol/L (3.5-5.1) L* 12/10/21 14:04 Chloride 101 mmol/L (98-107) 12/10/21 14:04 Carbon Dioxide 32.3 mmol/L (21-32) H 12/10/21 14:04 BUN 19 mg/dL (7-18) H 12/10/21 14:04 Creatinine 1.48 mg/dL (0.55-1.02) H 12/10/21 14:04 Est GFR (MDRD) Af Amer 43 (>60) L 12/10/21 14:04 Est GFR (MDRD) Non-Af 36 (>60) L 12/10/21 14:04 Glucose 80 mg/dL (65-99) 12/10/21 14:04 Lactic Acid 1.3 mmol/L (0.4-2.0) 12/10/21 14:04 Calcium 8.0 mg/dL (8.5-10.1) L 12/10/21 14:04 Corrected Calcium 9.6 mg/dL (8.5-10.1) 12/10/21 14:04 Magnesium 1.6 mg/dL (1.7-2.9) L 12/10/21 14:00 Total Bilirubin 0.50 mg/dL (0.2-1.0) 12/10/21 14:04 AST 13 Units/L (15-37) L 12/10/21 14:04 ALT 9 Units/L (12-78) L 12/10/21 14:04 Alkaline Phosphatase 87 Units/L (46-116) 12/10/21 14:04 Total Protein 6.6 g/dL (6.4-8.2) 12/10/21 14:04 Albumin 2.0 g/dL (3.4-5.0) L 12/10/21 14:04 Globulin 4.6 g/dL (2.5-4.5) H 12/10/21 14:04 Albumin/Globulin Ratio 0.4 Ratio (1.1-2.1) L 12/10/21 14:04 Lipase 24 Units/L (73-393) L 12/10/21 14:04 Specimen Type Catherized urine 12/10/21 14:03 Urine Color Yellow (YELLOW) 12/10/21 14:03 Urine Appearance Cloudy (CLEAR) 12/10/21 14:03 Urine pH 7.0 (5.0 - 8.0) 12/10/21 14:03 Ur Specific [place] 1.005 (1.000-1.030) 12/10/21 14:03 Urine Protein 3+ (NEGATIVE) 12/10/21 14:03 Urine Glucose (UA) Negative (NEGATIVE) 12/10/21 14:03 Urine Ketones Negative (NEGATIVE) 12/10/21 14:03 Urine Occult Blood 4+ (NEGATIVE) 12/10/21 14:03 Urine Nitrite Negative (NEGATIVE) 12/10/21 14:03 Urine Bilirubin Negative (NEGATIVE) 12/10/21 14:03 Urine Urobilinogen Normal (NORMAL) 12/10/21 14:03 Ur Leukocyte Esterase 3+ (NEGATIVE) 12/10/21 14:03 Urine RBC 10-20 /HPF (0-3) A 12/10/21 14:03 Urine WBC 30-50 /HPF (0-5) A 12/10/21 14:03 Ur Squamous Epith Cells Rare /HPF (NEGATIVE) 12/10/21 14:03 Urine Bacteria Trace /HPF (NEGATIVE) 12/10/21 14:03 Ur Culture Indicated? Yes/culture set up 12/10/21 14:03 SARS-CoV-2 (PCR) Negative (NEGATIVE) 12/10/21 14:03 Influenza Type A (PCR) Negative (NEGATIVE) 12/10/21 14:03 Influenza Type B (PCR) Negative (NEGATIVE) 12/10/21 14:03 RSV (PCR) Negative (NEGATIVE) 12/10/21 14:03 Other Results Comments: Elevated WBC, + WBCs in the urine c/w UTI. Opioid Opioid Risk Tool Age (Hugo box if 16-45): No History of Preadolescent Sexual Abuse: No Total: 0 Total Score Risk Category: Low Risk Copyright: Jhonny BEE predicting aberrant behaviors Diagnosis Discharge Problem: Acute UTI, Osteomyelitis of foot, left, acute
[2021-12-10 14:23] LABS: BASOPHILS # (AUTO) 0.2 X10^3/uL (0.0-0.1); BASOPHILS % (AUTO) 0.9 % (0.2-1.0); EOSINOPHILS # (AUTO) 0.1 x10^3/uL (0.0-0.2); EOSINOPHILS % (AUTO) 0.3 % (0.9-2.9); HEMATOCRIT 28.6 % (36.0-47.0); HEMOGLOBIN 9.3 g/dL (12.0-16.0); LYMPHOCYTES # (AUTO) 2.6 X10^3/uL (1.3-2.9); LYMPHOCYTES % (AUTO) 12.4 % (21.0-51.0); MEAN CORPUSCULAR HEMOGLOBIN 24.8 pg (27.0-34.0); MEAN CORPUSCULAR HGB CONC 32.6 g/dL (33.0-35.0); MEAN PLATELET VOLUME 7.6 fL (7.4-11.0); MONOCYTES # (AUTO) 1.2 x10^3/uL (0.3-0.8); MONOCYTES % (AUTO) 5.6 % (0.0-13.0); NEUTROPHILS # (AUTO) 17.1 x10^3/uL (2.2-4.8); NEUTROPHILS % (AUTO) 80.8 % (42.0-75.0); RED BLOOD COUNT 3.77 X10^6/uL (3.5-5.4); RED CELL DISTRIBUTION WIDTH 21.1 % (11.6-16.5); WHITE BLOOD COUNT 21.1 X10^3/uL (3.6-10.0)
--- NOTE | 2021-12-10 14:39 | RAD ---
HISTORYEMS STATES PT'S FAMILY MEMBER STATES PT HAS BEEN RUNNING FEVER ONSET EARLIER TODAY. PT ALSO C/O CHRONIC LEFT FOOT PAIN. PT HAS BED SORE NOTED TO BACK OF HEEL OF LEFT FOOT. BANDAGE NOTED, CLEAN & DRY. surgeries,: gb, cateracts, tubal and ortho.brdiabeticSTUDYCHEST, 1 VIEWCOMPARISONPortable chest November 02, 2021.FINDINGSThe trachea is midline. The cardiac silhouette is unremarkable. The lungs are clear without focal infiltrate or effusion. The bony thorax is unremarkable.IMPRESSIONNo acute cardiopulmonary findings and no change from prior film November 02, 2021..Electronically signed by: JONO GUTIERREZ (Dec 10, 2021 14:38:20)
--- NOTE | 2021-12-10 14:41 | RAD ---
HISTORYC/O CHRONIC LEFT FOOT PAIN. PT HAS BED SORE NOTED TO BACK OF HEEL OF LEFT FOOT. BANDAGE NOTED, CLEAN & DRY. surgeries,: gb, cateracts, tubal and ortho.brdiabeticSTUDYFOOT, LEFTCOMPARISONNoneFINDINGSNo acute cortical disruption i.e. the fracture or dislocation can be identified. There is however disruption of the cortex along the plantar aspect of the calcaneus with overlying soft tissue swelling. Osteomyelitis along the plantar aspect of the calcaneus over a length 1.3 cm is suspect. Recommend either MRI or nuclear medicine imaging. Vascular calcifications are observed. No significant soft tissue swelling or injury can be seen. The visualized portions of the talus and calcaneus are unremarkable.IMPRESSIONCortical bone loss along the plantar aspect the calcaneus just proximal to the plantar calcaneal spur and soft tissue swelling along the plantar aspect of the calcaneus. Osteomyelitis could not be excluded. Additional imaging i.e. MRI or nuclear medicine is recommended.Electronically signed by: JONO GUTIERREZ (Dec 10, 2021 14:40:39)
[2021-12-10 14:43] LABS: BILIRUBIN,URINE NEGATIVE (NEGATIVE); BLOOD/HEMOGLOBIN,URINE 4+ (NEGATIVE); GLUCOSE, URINE NEGATIVE (NEGATIVE); KETONES,URINE NEGATIVE (NEGATIVE); LEUKOCYTE ESTERASE ,URINE 3+ (NEGATIVE); NITRITES,URINE NEGATIVE (NEGATIVE); PROTEIN,URINE 3+ (NEGATIVE); UROBILINOGEN,URINE NORMAL (NORMAL)
[2021-12-10 14:49] LABS: ANISOCYTOSIS 1+; PLATELET MORPHOLOGY COMMENT NORMAL (NORMAL)
[2021-12-10 14:58] LABS: APPEARANCE,URINE CLOUDY (CLEAR); BACTERIA,URINE TRACE /HPF (NEGATIVE); COLOR,URINE YELLOW (YELLOW); SQUAMOUS EPITHELIAL CELL,UR RARE /HPF (NEGATIVE)
[2021-12-10 14:59] LABS: ALANINE AMINOTRANSFERASE 9 Units/L (12-78); ALKALINE PHOSPHATASE 87 Units/L (46-116); ASPARTATE AMINO TRANSFERASE 13 Units/L (15-37); BLOOD UREA NITROGEN 19 mg/dL (7-18); CARBON DIOXIDE 32.3 mmol/L (21-32); COR CA(FOR HYPOALB) 9.6 mg/dL (8.5-10.1); CREATININE 1.48 mg/dL (0.55-1.02); LIPASE 24 Units/L (73-393); TOTAL PROTEIN 6.6 g/dL (6.4-8.2); eGFR NON BLACK RACES 36 (>60)
[2021-12-10 15:52] LABS: CHLORIDE 101 mmol/L (98-107); SODIUM 141 mmol/L (136-145)
[2021-12-10] MEDS ORDERED: KETAMINE HCL ONE (17:13)
[2021-12-10] MEDS ORDERED: VERSED ONE (17:13)
[2021-12-10] MEDS ORDERED: DIPRIVAN VIAL ONE (17:13)
[2021-12-10] MEDS ORDERED: VANCOMYCIN IV *PREMIX 1 G/200 ML BAG 1 G/200 ML PIGGYBACK IV ONE (17:34)
[2021-12-10 17:56] LABS: LACTIC ACID 1.3 mmol/L (0.4-2.0)
[2021-12-10] MEDS ORDERED: VANCOMYCIN IV *PREMIX 1 G/200 ML BAG 1 G/200 ML PIGGYBACK IV SCH (18:00)
[2021-12-10] MEDS ORDERED: POTASSIUM CHL 40 MEQ/NS 0.45% 500 ML IV PRN (18:37)
[2021-12-10] MEDS ORDERED: POTASSIUM CHL 60 MEQ/NS 0.45% 500 ML IV PRN (18:37)
[2021-12-10] MEDS ORDERED: POTASSIUM CHLORIDE LIQ 20 MEQ UDC PO PRN (18:37)
[2021-12-10] MEDS ORDERED: K-RIDER 10 MEQ/NS 100 ML 10 MEQ/100 ML BAG IV PRN (18:37)
[2021-12-10] MEDS ORDERED: KLOR-CON PO PRN (18:37)
[2021-12-10] MEDS ORDERED: MICRO K EXTEN CAP 10 MEQ PO PRN (18:37)
[2021-12-10] MEDS ORDERED: NS 500 ML IV 500 ML IV PRN (19:35)
[2021-12-10] MEDS: MERREM VIAL IVP SCH (22:56)
[2021-12-10] MEDS: K-DUR TAB 20 MEQ PO PRN (22:57)
[2021-12-10] MEDS: MAGNESIUM SULFATE 1 GRAM/100 mL PREMIX 1 G/100 ML BAG IV PRN (23:37)
[2021-12-11] MEDS: MAGNESIUM SULFATE 1 GRAM/100 mL PREMIX 1 G/100 ML BAG IV PRN (00:18)
[2021-12-11 06:39] LABS: BASOPHILS # (AUTO) 0.1 X10^3/uL (0.0-0.1); BASOPHILS % (AUTO) 0.5 % (0.2-1.0); EOSINOPHILS # (AUTO) 0.1 x10^3/uL (0.0-0.2); EOSINOPHILS % (AUTO) 0.5 % (0.9-2.9); HEMATOCRIT 26.2 % (36.0-47.0); HEMOGLOBIN 8.6 g/dL (12.0-16.0); LYMPHOCYTES # (AUTO) 1.8 X10^3/uL (1.3-2.9); LYMPHOCYTES % (AUTO) 9.1 % (21.0-51.0); MEAN CORPUSCULAR HEMOGLOBIN 25.2 pg (27.0-34.0); MEAN CORPUSCULAR HGB CONC 32.7 g/dL (33.0-35.0); MEAN CORPUSCULAR VOLUME 77.2 fL (80.0-100.0); MEAN PLATELET VOLUME 7.8 fL (7.4-11.0); MONOCYTES # (AUTO) 0.8 x10^3/uL (0.3-0.8); MONOCYTES % (AUTO) 4.3 % (0.0-13.0); NEUTROPHILS # (AUTO) 16.9 x10^3/uL (2.2-4.8); NEUTROPHILS % (AUTO) 85.6 % (42.0-75.0); RED CELL DISTRIBUTION WIDTH 21.2 % (11.6-16.5); WHITE BLOOD COUNT 19.7 X10^3/uL (3.6-10.0)
[2021-12-11 06:53] LABS: ALBUMIN 1.9 g/dL (3.4-5.0); CARBON DIOXIDE 31.7 mmol/L (21-32); COR CA(FOR HYPOALB) 9.7 mg/dL (8.5-10.1); CREATININE 1.28 mg/dL (0.55-1.02); TOTAL PROTEIN 6.1 g/dL (6.4-8.2)
[2021-12-11 07:46] LABS: ANISOCYTOSIS 1+; HYPOCHROMASIA SLIGHT; PLATELET MORPHOLOGY COMMENT NORMAL (NORMAL); POIKILOCYTOSIS SLIGHT
[2021-12-11] MEDS ORDERED: NS 100 ML IV + SPIKE MINIBAG* 100 ML IV ONE ×2 (08:28→14:08)
[2021-12-11] MEDS: MERREM VIAL IVP SCH ×3 (08:37→23:28)
[2021-12-11] MEDS: K-DUR TAB 20 MEQ PO PRN ×2 (08:38→22:01)
[2021-12-11] MEDS ORDERED: BETADINE SOLN ONE (10:09)
[2021-12-11] MEDS ORDERED: DIPRIVAN VIAL 0 ML ONE (10:09)
[2021-12-11] MEDS ORDERED: XYLOCAINE 1 % (PLAIN) ONE (10:18)
[2021-12-11] MEDS ORDERED: POLYMYXIN B SULFATE ONE (10:19)
--- NOTE | 2021-12-11 10:32 | DR.H&P ---
H&P History & Physical for Day of: H&P Date: 12/10/21 Chief Complaint Chief Complaint: Fever Allergies Allergies Allergy/AdvReac Type Severity Reaction Status Date / Time codeine Allergy Verified 11/02/21 17:49 History of Present Illness History of Present Illness: This is an 86-year-old white female. She was taken to [facility] ED for fever since earlier in the day. She was also mildly confused with a strong odor to her urine. She also has a left heel ulc er/decubitus unstageable. X-ray of left heel shows osteomyelitis. She is non- ambulatory and has been for quite a while now. Her heel is painful and constant with sharp pain. Pain is worse with movement and has no radiating pain. Past Medical History Past Medical History: Diabetes, Dyslipidemia, Hypertension and Hypothyroidism Past Surgical History Surgical History: Cholecystectomy and Hysterectomy Family History Family Medical History: Cancer and Hypertension Social History Does patient currently use any type of tobacco product: No Have you used tobacco products in the last 12 months: No Type of Tobacco Use: None Does any household member use tobacco: No Alcohol Use: None Drug Use: None Medications Home Medications: codeine Allergy (Verified 11/02/21 17:49) Labs Result Diagrams: 12/11/21 05:32 12/11/21 05:32 Labs: 12/10/21 14:03 Urine,Catheterized Urine Culture - Preliminary 12/10/21 14:04 Blood Blood Culture - Preliminary 12/10/21 14:00 Blood Blood Culture - Preliminary Laboratory WBC 19.7 X10^3/uL (3.6-10.0) H 12/11/21 05:32 RBC 3.40 X10^6/uL (3.5-5.4) L 12/11/21 05:32 Hgb 8.6 g/dL (12.0-16.0) L 12/11/21 05:32 Hct 26.2 % (36.0-47.0) L 12/11/21 05:32 MCV 77.2 fL (80.0-100.0) L 12/11/21 05:32 MCH 25.2 pg (27.0-34.0) L 12/11/21 05:32 MCHC 32.7 g/dL (33.0-35.0) L 12/11/21 05:32 RDW 21.2 % (11.6-16.5) H 12/11/21 05:32 Plt Count 409 X10^3/uL (150.0-450.0) 12/11/21 05:32 Plt Count Comment Adequate (ADEQUATE) 12/11/21 05:32 MPV 7.8 fL (7.4-11.0) 12/11/21 05:32 Neut % (Auto) 85.6 % (42.0-75.0) H 12/11/21 05:32 Lymph % (Auto) 9.1 % (21.0-51.0) L 12/11/21 05:32 [place] % (Auto) 4.3 % (0.0-13.0) 12/11/21 05:32 Eos % (Auto) 0.5 % (0.9-2.9) L 12/11/21 05:32 Baso % (Auto) 0.5 % (0.2-1.0) 12/11/21 05:32 Neut # (Auto) 16.9 x10^3/uL (2.2-4.8) H 12/11/21 05:32 Lymph # (Auto) 1.8 X10^3/uL (1.3-2.9) 12/11/21 05:32 [place] # (Auto) 0.8 x10^3/uL (0.3-0.8) 12/11/21 05:32 Eos # (Auto) 0.1 x10^3/uL (0.0-0.2) 12/11/21 05:32 Baso # (Auto) 0.1 X10^3/uL (0.0-0.1) 12/11/21 05:32 Absolute Nucleated RBC 0.1 /100WBC 12/11/21 05:32 Total Counted 100 12/10/21 14:00 Neutrophils % (Manual) 81 % (39-76) H 12/10/21 14:00 Lymphocytes % (Manual) 13 % (13-43) 12/10/21 14:00 Monocytes % (Manual) 5 % (4-9) 12/10/21 14:00 Eosinophils % (Manual) 1 % (0-6) 12/10/21 14:00 Plt Morphology Comment Normal (NORMAL) 12/11/21 05:32 RBC Morphology Abnormal (NORMAL) A 12/11/21 05:32 Hypochromasia Slight A 12/11/21 05:32 Poikilocytosis Slight A 12/11/21 05:32 Anisocytosis 1+ A 12/11/21 05:32 Sodium 139 mmol/L (136-145) 12/11/21 05:32 Corrected Sodium 141 mmol/L (136-145) 12/11/21 05:32 Potassium 3.0 mmol/L (3.5-5.1) L* 12/11/21 05:32 Chloride 101 mmol/L (98-107) 12/11/21 05:32 Carbon Dioxide 31.7 mmol/L (21-32) 12/11/21 05:32 BUN 19 mg/dL (7-18) H 12/11/21 05:32 Creatinine 1.28 mg/dL (0.55-1.02) H 12/11/21 05:32 Est GFR (MDRD) Af Amer 51 (>60) L 12/11/21 05:32 Est GFR (MDRD) Non-Af 42 (>60) L 12/11/21 05:32 Glucose 204 mg/dL (65-99) H 12/11/21 05:32 POC Glucose (mg/dL) 185 mg/dL (65-99) H 12/11/21 05:18 Lactic Acid 1.3 mmol/L (0.4-2.0) 12/10/21 14:04 Calcium 8.0 mg/dL (8.5-10.1) L 12/11/21 05:32 Corrected Calcium 9.7 mg/dL (8.5-10.1) 12/11/21 05:32 Magnesium 2.0 mg/dL (1.7-2.9) 12/11/21 05:32 Total Bilirubin 0.60 mg/dL (0.2-1.0) 12/11/21 05:32 AST 14 Units/L (15-37) L 12/11/21 05:32 ALT 10 Units/L (12-78) L 12/11/21 05:32 Alkaline Phosphatase 89 Units/L (46-116) 12/11/21 05:32 Total Protein 6.1 g/dL (6.4-8.2) L 12/11/21 05:32 Albumin 1.9 g/dL (3.4-5.0) L 12/11/21 05:32 Globulin 4.2 g/dL (2.5-4.5) 12/11/21 05:32 Albumin/Globulin Ratio 0.5 Ratio (1.1-2.1) L 12/11/21 05:32 Lipase 24 Units/L (73-393) L 12/10/21 14:04 Specimen Type Catherized urine 12/10/21 14:03 Urine Color Yellow (YELLOW) 12/10/21 14:03 Urine Appearance Cloudy (CLEAR) 12/10/21 14:03 Urine pH 7.0 (5.0 - 8.0) 12/10/21 14:03 Ur Specific [place] 1.005 (1.000-1.030) 12/10/21 14:03 Urine Protein 3+ (NEGATIVE) 12/10/21 14:03 Urine Glucose (UA) Negative (NEGATIVE) 12/10/21 14:03 Urine Ketones Negative (NEGATIVE) 12/10/21 14:03 Urine Occult Blood 4+ (NEGATIVE) 12/10/21 14:03 Urine Nitrite Negative (NEGATIVE) 12/10/21 14:03 Urine Bilirubin Negative (NEGATIVE) 12/10/21 14:03 Urine Urobilinogen Normal (NORMAL) 12/10/21 14:03 Ur Leukocyte Esterase 3+ (NEGATIVE) 12/10/21 14:03 Urine RBC 10-20 /HPF (0-3) A 12/10/21 14:03 Urine WBC 30-50 /HPF (0-5) A 12/10/21 14:03 Ur Squamous Epith Cells Rare /HPF (NEGATIVE) 12/10/21 14:03 Urine Bacteria Trace /HPF (NEGATIVE) 12/10/21 14:03 Ur Culture Indicated? Yes/culture set up 12/10/21 14:03 SARS-CoV-2 (PCR) Negative (NEGATIVE) 12/10/21 14:03 Influenza Type A (PCR) Negative (NEGATIVE) 12/10/21 14:03 Influenza Type B (PCR) Negative (NEGATIVE) 12/10/21 14:03 RSV (PCR) Negative (NEGATIVE) 12/10/21 14:03 Review of Systems Constitutional: Fever, Chills, Weakness and Malaise Eyes: No Symptoms Reported ENT: No Symptoms Reported Respiratory: Cough Cardiovascular: No Symptoms Reported Gastrointestinal: No Symptoms Reported Genitourinary: Other (strong urine odor) Musculoskeletal: Foot Pain Skin: No Symptoms Reported Neurological: Weakness and Confusion Physical Exam Vital Signs: Temperature 99.4 F Pulse Rate [Left Radial] 85 Pulse Rate 83 Respiratory Rate 18 Blood Pressure [Left Arm] 138/61 Blood Pressure 118/87 O2 Sat by Pulse Oximetry 98 Oriented: Normal Eyes: Normal Ear: Normal Nose: Normal Respiratory: Clear Throughout Cardiovascular: Normal : Normal Auscultation: Bowel Sounds: Normal Palpation: Normal Tenderness: Normal Skin: Decreased Turgur Musculoskeletal: Left and Foot (unstageable left heel uclcer with eschar) Psychiatric: Normal Mood Description: Calm Affect: Anxious Speech Pattern: Clear Assessment/Plan (1) Decubitus ulcer, heel, left, unstageable: Status: Acute Plan: IV Vancomycin and Meropenem. Will consult Dr. Wong for evaluation and treatment. (2) Anemia, chronic disease: Status: Acute Plan: will check anemia profile. (3) HTN (hypertension): Status: Acute Plan: Monitor BP (4) Hypothyroidism: Status: Acute (5) UTI (urinary tract infection): Status: Acute Plan: IV antibiotics. Follow up with culture when available.
[2021-12-11] MEDS ORDERED: FENTANYL VIAL INJ 100 mcg ONE (10:39)
--- NOTE | 2021-12-11 10:50 | PCM.PROG ---
Progress Note Progress Note for Day of Date of Exam: 12/11/21 Subjective Subjective: Patient is alert and awake this morning. She feels better since yesterday. Left heel still hurts. Dr Wong to see patient later this morning. Will follow up with him later today. Will also arrange to have PICC line placed for 6 weeks of outpatient antibiotics. Past Medical Family Social History Past Med/Fam/Surg Hx: No changes since H&P Allergies: Allergies codeine Allergy (Verified 11/02/21 17:49) Review of Systems ROS: No change since H&P Vital Signs and I&O's Vital Signs: Temperature 99.0 F Pulse Rate [Left Radial] 84 Pulse Rate 83 Respiratory Rate 20 Blood Pressure [Left Arm] 130/62 Blood Pressure 118/87 O2 Sat by Pulse Oximetry 98 Intake and Output: Intake & Output 12/08/21 12/09/21 12/10/21 12/11/21 11:59 11:59 11:59 11:59 Intake Total 1010 / 1010 Output Total 2 / 2 Balance 1008 / 1008 Physical Exam Oriented: Normal Eyes: Normal Ear: Normal Nose: Normal Respiratory: Normal Cardiovascular: Normal : Normal Auscultation: Bowel Sounds: Normal Tenderness: Normal Skin: Decreased [place]urgur Musculoskeletal: Left and Foot (unstageable left heel uclcer with eschar) Psychiatric: Normal Mood Description: Calm Affect: Anxious Speech Pattern: Clear Laboratory and Diagnostics Result Diagrams: 12/11/21 05:32 12/11/21 05:32 Labs: 12/10/21 14:03 Urine,Catheterized Urine Culture - Preliminary 12/10/21 14:04 Blood Blood Culture - Preliminary 12/10/21 14:00 Blood Blood Culture - Preliminary Laboratory WBC 19.7 X10^3/uL (3.6-10.0) H 12/11/21 05:32 RBC 3.40 X10^6/uL (3.5-5.4) L 12/11/21 05:32 Hgb 8.6 g/dL (12.0-16.0) L 12/11/21 05:32 Hct 26.2 % (36.0-47.0) L 12/11/21 05:32 MCV 77.2 fL (80.0-100.0) L 12/11/21 05:32 MCH 25.2 pg (27.0-34.0) L 12/11/21 05:32 MCHC 32.7 g/dL (33.0-35.0) L 12/11/21 05:32 RDW 21.2 % (11.6-16.5) H 12/11/21 05:32 Plt Count 409 X10^3/uL (150.0-450.0) 12/11/21 05:32 Plt Count Comment Adequate (ADEQUATE) 12/11/21 05:32 MPV 7.8 fL (7.4-11.0) 12/11/21 05:32 Neut % (Auto) 85.6 % (42.0-75.0) H 12/11/21 05:32 Lymph % (Auto) 9.1 % (21.0-51.0) L 12/11/21 05:32 [place] % (Auto) 4.3 % (0.0-13.0) 12/11/21 05:32 Eos % (Auto) 0.5 % (0.9-2.9) L 12/11/21 05:32 Baso % (Auto) 0.5 % (0.2-1.0) 12/11/21 05:32 Neut # (Auto) 16.9 x10^3/uL (2.2-4.8) H 12/11/21 05:32 Lymph # (Auto) 1.8 X10^3/uL (1.3-2.9) 12/11/21 05:32 [place] # (Auto) 0.8 x10^3/uL (0.3-0.8) 12/11/21 05:32 Eos # (Auto) 0.1 x10^3/uL (0.0-0.2) 12/11/21 05:32 Baso # (Auto) 0.1 X10^3/uL (0.0-0.1) 12/11/21 05:32 Absolute Nucleated RBC 0.1 /100WBC 12/11/21 05:32 Total Counted 100 12/10/21 14:00 Neutrophils % (Manual) 81 % (39-76) H 12/10/21 14:00 Lymphocytes % (Manual) 13 % (13-43) 12/10/21 14:00 Monocytes % (Manual) 5 % (4-9) 12/10/21 14:00 Eosinophils % (Manual) 1 % (0-6) 12/10/21 14:00 Plt Morphology Comment Normal (NORMAL) 12/11/21 05:32 RBC Morphology Abnormal (NORMAL) A 12/11/21 05:32 Hypochromasia Slight A 12/11/21 05:32 Poikilocytosis Slight A 12/11/21 05:32 Anisocytosis 1+ A 12/11/21 05:32 Sodium 139 mmol/L (136-145) 12/11/21 05:32 Corrected Sodium 141 mmol/L (136-145) 12/11/21 05:32 Potassium 3.0 mmol/L (3.5-5.1) L* 12/11/21 05:32 Chloride 101 mmol/L (98-107) 12/11/21 05:32 Carbon Dioxide 31.7 mmol/L (21-32) 12/11/21 05:32 BUN 19 mg/dL (7-18) H 12/11/21 05:32 Creatinine 1.28 mg/dL (0.55-1.02) H 12/11/21 05:32 Est GFR (MDRD) Af Amer 51 (>60) L 12/11/21 05:32 Est GFR (MDRD) Non-Af 42 (>60) L 12/11/21 05:32 Glucose 204 mg/dL (65-99) H 12/11/21 05:32 POC Glucose (mg/dL) 185 mg/dL (65-99) H 12/11/21 05:18 Lactic Acid 1.3 mmol/L (0.4-2.0) 12/10/21 14:04 Calcium 8.0 mg/dL (8.5-10.1) L 12/11/21 05:32 Corrected Calcium 9.7 mg/dL (8.5-10.1) 12/11/21 05:32 Magnesium 2.0 mg/dL (1.7-2.9) 12/11/21 05:32 Total Bilirubin 0.60 mg/dL (0.2-1.0) 12/11/21 05:32 AST 14 Units/L (15-37) L 12/11/21 05:32 ALT 10 Units/L (12-78) L 12/11/21 05:32 Alkaline Phosphatase 89 Units/L (46-116) 12/11/21 05:32 Total Protein 6.1 g/dL (6.4-8.2) L 12/11/21 05:32 Albumin 1.9 g/dL (3.4-5.0) L 12/11/21 05:32 Globulin 4.2 g/dL (2.5-4.5) 12/11/21 05:32 Albumin/Globulin Ratio 0.5 Ratio (1.1-2.1) L 12/11/21 05:32 Lipase 24 Units/L (73-393) L 12/10/21 14:04 Specimen Type Catherized urine 12/10/21 14:03 Urine Color Yellow (YELLOW) 12/10/21 14:03 Urine Appearance Cloudy (CLEAR) 12/10/21 14:03 Urine pH 7.0 (5.0 - 8.0) 12/10/21 14:03 Ur Specific [place] 1.005 (1.000-1.030) 12/10/21 14:03 Urine Protein 3+ (NEGATIVE) 12/10/21 14:03 Urine Glucose (UA) Negative (NEGATIVE) 12/10/21 14:03 Urine Ketones Negative (NEGATIVE) 12/10/21 14:03 Urine Occult Blood 4+ (NEGATIVE) 12/10/21 14:03 Urine Nitrite Negative (NEGATIVE) 12/10/21 14:03 Urine Bilirubin Negative (NEGATIVE) 12/10/21 14:03 Urine Urobilinogen Normal (NORMAL) 12/10/21 14:03 Ur Leukocyte Esterase 3+ (NEGATIVE) 12/10/21 14:03 Urine RBC 10-20 /HPF (0-3) A 12/10/21 14:03 Urine WBC 30-50 /HPF (0-5) A 12/10/21 14:03 Ur Squamous Epith Cells Rare /HPF (NEGATIVE) 12/10/21 14:03 Urine Bacteria Trace /HPF (NEGATIVE) 12/10/21 14:03 Ur Culture Indicated? Yes/culture set up 12/10/21 14:03 SARS-CoV-2 (PCR) Negative (NEGATIVE) 12/10/21 14:03 Influenza Type A (PCR) Negative (NEGATIVE) 12/10/21 14:03 Influenza Type B (PCR) Negative (NEGATIVE) 12/10/21 14:03 RSV (PCR) Negative (NEGATIVE) 12/10/21 14:03 Radiology Reviewed: Yes EKG Reviewed: Yes Plan (1) Decubitus ulcer, heel, left, unstageable: Status: Acute Plan: IV Vancomycin and Meropenem. Will consult Dr. Wong for evaluation and treatment. (2) Anemia, chronic disease: Status: Acute Plan: will check anemia profile. (3) HTN (hypertension): Status: Acute Plan: Monitor BP (4) Hypothyroidism: Status: Acute (5) UTI (urinary tract infection): Status: Acute Plan: IV antibiotics. Follow up with culture when available. (6) DM2 (diabetes mellitus, type 2): Status: Acute Plan: Will add sliding scale regular insulin per protocol. (7) Leukocytosis: Status: Acute Narrative Support Text: Slightly improved this moning. Plan: Recheck CBC in morning.
[2021-12-11] MEDS ORDERED: NS 1,000 ML IV 1,000 ML ONE (13:26)
[2021-12-11] MEDS ORDERED: MERREM VIAL ONE (14:08)
--- NOTE | 2021-12-11 14:14 | RAD ---
HISTORYPICC placementSTUDYChest AP [id number] e is a right-sided PICC line present. Its tip is within the expected position of the superior vena cava. The bayron are normal. The lung malhotra are clear. No pleural effusions are identified. Bony thorax is unremarkable.IMPRESSIONRight PICC tip superior vena cava at the level of the carinaLungs clearElectronically signed by: BRENDA ROUSE (Dec 11, 2021 14:12:57)
--- NOTE | 2021-12-11 14:50 | DR.UPDATE ---
H&P Update History and Physical Update: History and Physical reviewed and patient examined. Changes noted: NO Yes with the following:will place picc H&P Reviewed: Yes Patient was examined?: Yes Procedures (ALL) - Central Line Placement PCM.CLCO: written consent Time out performed: Yes Patient placed pm monitor/pulse ox: Yes prep: mask, gown, gloves, other Centrial line prep: chlorhexidine scrub, sterile drapes applied Local anesthsia used: lidocane 1% Ultrasound used for placement: Yes (right basilic id'd and cannulation visualized) Central line lumen ininserted: double (5.5fr arrowpicc) Post procedure: good blood return, all ports aspirated, flushed,capped, sterile dressing applied Post procedure xray: tip oc catheter in good position (SVC), no pneumothorax seen Patient tolerated procedure: Yes Complications: none
[2021-12-11] MEDS ORDERED: NEURONTIN TAB 600 MG ONE (16:07)
[2021-12-11] MEDS: NEURONTIN CAP 300 MG PO SCH ×2 (16:10→22:01)
[2021-12-11] MEDS ORDERED: VANCOMYCIN IV *PREMIX 1 G/200 ML BAG 1 G/200 ML PIGGYBACK IV SCH (21:00)
[2021-12-11] MEDS: NovoLIN R (or HumuLIN R) SC PRN (22:14)
[2021-12-11] MEDS ORDERED: NS 50 ML IV + SPIKE MINIBAG* 50 ML IV ONE (22:14)
[2021-12-12] MEDS ORDERED: NS 50 ML IV + SPIKE MINIBAG* 50 ML IV ONE (05:10)
[2021-12-12] MEDS: MERREM VIAL IVP SCH ×2 (05:44→15:20)
[2021-12-12] MEDS: NEURONTIN CAP 300 MG PO SCH ×2 (05:44→14:42)
[2021-12-12 06:16] LABS: BASOPHILS # (AUTO) 0.1 X10^3/uL (0.0-0.1); BASOPHILS % (AUTO) 0.5 % (0.2-1.0); EOSINOPHILS # (AUTO) 0.2 x10^3/uL (0.0-0.2); EOSINOPHILS % (AUTO) 1.2 % (0.9-2.9); HEMATOCRIT 26.4 % (36.0-47.0); HEMOGLOBIN 8.6 g/dL (12.0-16.0); LYMPHOCYTES % (AUTO) 15.2 % (21.0-51.0); MEAN CORPUSCULAR HGB CONC 32.5 g/dL (33.0-35.0); MEAN PLATELET VOLUME 7.8 fL (7.4-11.0); MONOCYTES # (AUTO) 0.8 x10^3/uL (0.3-0.8); NEUTROPHILS % (AUTO) 77.1 % (42.0-75.0); RED BLOOD COUNT 3.43 X10^6/uL (3.5-5.4); RED CELL DISTRIBUTION WIDTH 20.9 % (11.6-16.5)
[2021-12-12 06:49] LABS: ALBUMIN 1.8 g/dL (3.4-5.0); CALCIUM 8.3 mg/dL (8.5-10.1); CARBON DIOXIDE 27.3 mmol/L (21-32); COR CA(FOR HYPOALB) 10.1 mg/dL (8.5-10.1); CREATININE 1.18 mg/dL (0.55-1.02); MAGNESIUM 1.9 mg/dL (1.7-2.9); TOTAL PROTEIN 6.2 g/dL (6.4-8.2)
[2021-12-12 07:28] LABS: ANISOCYTOSIS 1+; HYPOCHROMASIA SLIGHT; MICROCYTOSIS SLIGHT; PLATELET MORPHOLOGY COMMENT NORMAL (NORMAL)
[2021-12-12 12:02] VITALS: BP 153/67
[2021-12-12] MEDS: NovoLIN R (or HumuLIN R) SC PRN (12:51)
[2021-12-12] MEDS ORDERED: NS 100 ML IV 100 ML ONE (17:30)
[2021-12-13] MEDS ORDERED: PHARMACY COMMENT IV NR (20:30)
--- NOTE | 2022-01-12 13:06 | PCM.DCPLAN ---
DISCHARGE SUMMARY Admission Date Date of Admission: 12/10/21 Discharge Date Discharge Date: 12/12/21 Admission Diagnoses (1) Decubitus ulcer, heel, left, unstageable: Status: Acute (2) Anemia, chronic disease: Status: Acute (3) HTN (hypertension): Status: Acute (4) Hypothyroidism: Status: Acute (5) UTI (urinary tract infection): Status: Acute (6) DM2 (diabetes mellitus, type 2): Status: Acute (7) Leukocytosis: Status: Acute Discharge Diagnoses Discharge Diagnosis: 1. Left foot stage 3 decubitus ulcer with possible osteomyelitis of calcaneous. 2. UTI 3. AMS from UTI resolved. 4. Leukocytosis much improved. 5. DM2 6. HTN 7. Hypothyroidism. 8. Anemia of chronic disease. Discharge Medications Discharge Medications: Home Medication List PreserVision AREDS-2 1 tab PO BID 12/11/21 [History] Prevagen 10 mg PO DAILY 12/11/21 [History] ferrous gluconate 324 mg PO DAILY 12/11/21 [History] furosemide 40 mg PO BID 12/11/21 [History] gabapentin 600 mg PO TID 12/11/21 [History] levothyroxine 50 mcg PO DAILY 12/11/21 [History] spironolactone 25 mg PO BID 12/11/21 [History] meropenem 1 g IV Q8H #9 ea 12/12/21 [Rx] potassium chloride 10 meq PO BID #60 tab 12/12/21 [Rx] Prescriptions: corinaopenem CHRISTIN VERDUZCO potassium chloride CHRISTIN VERDUZCO Hospital Course Vital Signs: Temperature 98.5 F Pulse Rate [Left Radial] 74 Pulse Rate 83 Respiratory Rate 20 Blood Pressure [Left Arm] 153/67 Blood Pressure 118/87 O2 Sat by Pulse Oximetry 98 Latest Lab Results: Laboratory Last Values WBC 13.0 X10^3/uL (3.6-10.0) H 12/12/21 05:44 RBC 3.43 X10^6/uL (3.5-5.4) L 12/12/21 05:44 Hgb 8.6 g/dL (12.0-16.0) L 12/12/21 05:44 Hct 26.4 % (36.0-47.0) L 12/12/21 05:44 MCV 77.0 fL (80.0-100.0) L 12/12/21 05:44 MCH 25.0 pg (27.0-34.0) L 12/12/21 05:44 MCHC 32.5 g/dL (33.0-35.0) L 12/12/21 05:44 RDW 20.9 % (11.6-16.5) H 12/12/21 05:44 Plt Count 439 X10^3/uL (150.0-450.0) 12/12/21 05:44 Plt Count Comment Adequate (ADEQUATE) 12/12/21 05:44 MPV 7.8 fL (7.4-11.0) 12/12/21 05:44 Neut % (Auto) 77.1 % (42.0-75.0) H 12/12/21 05:44 Lymph % (Auto) 15.2 % (21.0-51.0) L 12/12/21 05:44 [place] % (Auto) 6.0 % (0.0-13.0) 12/12/21 05:44 Eos % (Auto) 1.2 % (0.9-2.9) 12/12/21 05:44 Baso % (Auto) 0.5 % (0.2-1.0) 12/12/21 05:44 Neut # (Auto) 10.0 x10^3/uL (2.2-4.8) H 12/12/21 05:44 Lymph # (Auto) 2.0 X10^3/uL (1.3-2.9) 12/12/21 05:44 [place] # (Auto) 0.8 x10^3/uL (0.3-0.8) 12/12/21 05:44 Eos # (Auto) 0.2 x10^3/uL (0.0-0.2) 12/12/21 05:44 Baso # (Auto) 0.1 X10^3/uL (0.0-0.1) 12/12/21 05:44 Absolute Nucleated RBC 0.0 /100WBC 12/12/21 05:44 Total Counted 100 12/10/21 14:00 Neutrophils % (Manual) 81 % (39-76) H 12/10/21 14:00 Lymphocytes % (Manual) 13 % (13-43) 12/10/21 14:00 Monocytes % (Manual) 5 % (4-9) 12/10/21 14:00 Eosinophils % (Manual) 1 % (0-6) 12/10/21 14:00 Plt Morphology Comment Normal (NORMAL) 12/12/21 05:44 RBC Morphology Abnormal (NORMAL) A 12/12/21 05:44 Hypochromasia Slight A 12/12/21 05:44 Poikilocytosis Slight A 12/11/21 05:32 Anisocytosis 1+ A 12/12/21 05:44 Microcytosis Slight A 12/12/21 05:44 ESR 74 MM/HOUR (0-20) H 12/12/21 10:16 Sodium 139 mmol/L (136-145) 12/12/21 05:44 Corrected Sodium 142 mmol/L (136-145) 12/12/21 05:44 Potassium 3.3 mmol/L (3.5-5.1) L 12/12/21 05:44 Chloride 104 mmol/L (98-107) 12/12/21 05:44 Carbon Dioxide 27.3 mmol/L (21-32) 12/12/21 05:44 BUN 15 mg/dL (7-18) 12/12/21 05:44 Creatinine 1.18 mg/dL (0.55-1.02) H 12/12/21 05:44 Est GFR (MDRD) Af Amer 56 (>60) L 12/12/21 05:44 Est GFR (MDRD) Non-Af 46 (>60) L 12/12/21 05:44 Glucose 236 mg/dL (65-99) H 12/12/21 05:44 POC Glucose (mg/dL) 215 mg/dL (65-99) H 12/12/21 16:54 Lactic Acid 1.3 mmol/L (0.4-2.0) 12/10/21 14:04 Calcium 8.3 mg/dL (8.5-10.1) L 12/12/21 05:44 Corrected Calcium 10.1 mg/dL (8.5-10.1) 12/12/21 05:44 Magnesium 1.9 mg/dL (1.7-2.9) 12/12/21 05:44 Iron 13 ug/dL (50-175) L 12/11/21 05:32 Transferrin 117 mg/dL (202-364) L 12/11/21 05:32 Ferritin 660 ng/mL (8-252) H 12/11/21 05:32 Total Bilirubin 0.50 mg/dL (0.2-1.0) 12/12/21 05:44 AST 14 Units/L (15-37) L 12/12/21 05:44 ALT 10 Units/L (12-78) L 12/12/21 05:44 Alkaline Phosphatase 82 Units/L (46-116) 12/12/21 05:44 C-Reactive Protein 158.20 mg/L (0-3.0) H 12/12/21 05:44 Total Protein 6.2 g/dL (6.4-8.2) L 12/12/21 05:44 Albumin 1.8 g/dL (3.4-5.0) L 12/12/21 05:44 Globulin 4.4 g/dL (2.5-4.5) 12/12/21 05:44 Albumin/Globulin Ratio 0.4 Ratio (1.1-2.1) L 12/12/21 05:44 Lipase 24 Units/L (73-393) L 12/10/21 14:04 Vitamin B12 508 pg/mL (193-986) 12/11/21 05:32 Folate 18.0 ng/mL (>8.6) 12/11/21 05:32 Specimen Type Catherized urine 12/10/21 14:03 Urine Color Yellow (YELLOW) 12/10/21 14:03 Urine Appearance Cloudy (CLEAR) 12/10/21 14:03 Urine pH 7.0 (5.0 - 8.0) 12/10/21 14:03 Ur Specific [place] 1.005 (1.000-1.030) 12/10/21 14:03 Urine Protein 3+ (NEGATIVE) 12/10/21 14:03 Urine Glucose (UA) Negative (NEGATIVE) 12/10/21 14:03 Urine Ketones Negative (NEGATIVE) 12/10/21 14:03 Urine Occult Blood 4+ (NEGATIVE) 12/10/21 14:03 Urine Nitrite Negative (NEGATIVE) 12/10/21 14:03 Urine Bilirubin Negative (NEGATIVE) 12/10/21 14:03 Urine Urobilinogen Normal (NORMAL) 12/10/21 14:03 Ur Leukocyte Esterase 3+ (NEGATIVE) 12/10/21 14:03 Urine RBC 10-20 /HPF (0-3) A 12/10/21 14:03 Urine WBC 30-50 /HPF (0-5) A 12/10/21 14:03 Ur Squamous Epith Cells Rare /HPF (NEGATIVE) 12/10/21 14:03 Urine Bacteria Trace /HPF (NEGATIVE) 12/10/21 14:03 Ur Culture Indicated? Yes/culture set up 12/10/21 14:03 SARS-CoV-2 (PCR) Negative (NEGATIVE) 12/10/21 14:03 Influenza Type A (PCR) Negative (NEGATIVE) 12/10/21 14:03 Influenza Type B (PCR) Negative (NEGATIVE) 12/10/21 14:03 RSV (PCR) Negative (NEGATIVE) 12/10/21 14:03 Tissue Pathology To follow 12/11/21 14:31 Hospital Course: This patient came in with Fever, confusion with a strong odor to her urine. In the ED she was diagnosed with UTI and a left heel ulcer with possible osteomyelitis of the left calcaneus. Her heeel pain is constant and chavis. She was admitted to inpatient status and started on IV Vancomycin and Meropenem. Her WBC count dropped over the next 2 days and a picc line was placed for out patient treatment of UTI and possible Osteomyelitis with IV Meropenem. Will plan on an outpatient MRI to see if patient does have osteomyelitis. Instructions Instructions: Diabetes Mellitus and Foot Care Osteomyelitis, Adult Wound Infection Mechanical Wound Debridement PICC Insertion, Care After Pressure Injury How to Change Your Wound Dressing, [id number] Preventing Pressure Injuries Diabetes Mellitus and Skin Care Leukocytosis PICC Home Care Guide Managing Your Hypertension
== END 2021-12-12 19:30 | disposition home health service (06) | DRG 571 ==
LOC: MED/SURG 12:40 → ER 12:40 → OBSVTOIN 17:13 → MED/SURG 18:01
PROVIDERS: ADMIT Family Medicine; ATTEND Family Medicine
DX: Z66 Do not resuscitate; B95.7 Other staphylococcus as the cause of diseases classified elsewhere; N39.0 Urinary tract infection, site not specified; Z20.822 Contact with and (suspected) exposure to COVID-19; D63.8 Anemia in other chronic diseases classified elsewhere; I10 Essential (primary) hypertension; E78.2 Mixed hyperlipidemia; B96.1 Klebsiella pneumoniae [K. pneumoniae] as the cause of diseases classified elsewhere; E11.65 Type 2 diabetes mellitus with hyperglycemia; E03.8 Other specified hypothyroidism; L89.623 Pressure ulcer of left heel, stage 3; R79.89 Other specified abnormal findings of blood chemistry; R79.82 Elevated C-reactive protein (CRP)

== ENCOUNTER 2021-12-19 13:52 | Observation (INO) ==
[2021-12-19 14:09] VITALS: BMI 34.3
--- NOTE | 2021-12-19 14:28 | DR.AMS ---
HPI Time Seen Time Seen by Provider: 12/19/21 14:04 HPI Comment HPI Comment: PATIENT IS 86YR OLD FEMALE IN ER VIA EMS WITH AMS. DAUGHTER STATES SHE IS CONFUSED AND NOT ACTING HERSELF. CURRENTLY ON MEDICATION FOR UTI. HAVE LEFT HEEL PRESSURE ULCER WITH RECENT SURGICAL INTERVENTION. DENIES DYSURIA. NO VOMITING OR DIARRHEA. DIABETIC BUT GLUCOSE NOT LOW. PATIENT DENIES CHEST PAIN OR HEADACHE. Complaint Cheif Complaint Doctors Comments: AMS, FEVER. COVID-19 Coronavirus risk:travel/contact w/high risk person: No Has patient experienced Coronavirus symptoms: No Reviewed Nurses Notes Reviewed: Yes Source History Provided: Family Member and EMS Mode of Arrival Mode of Arrival: EMS Timing Came On: Suddenly Symptoms: Unchanged Symptom Onset: Unknown Duration Duration: Constant Duration: Hours Quality Quality: Decreased Alertness, Change in Behavior and Confusion Severity Severity: Moderate Context Recent: Fever and Cough History Of: Diabetes (HTN) Associated Signs and Symptoms Associated Signs and Symptoms: Generalized Weakness, Change in Behavior, Confusion and Decreased LOC Other History Other History: HTN, DM, HYPOTHYRIODISM. PMH PMH Past Medical History: Diabetes, Dyslipidemia, Hypertension and Hypothyroidism Past Surgical History: Yes Surgical History: Cholecystectomy and Hysterectomy Family History Family Medical History: Cancer and Hypertension Social History Do you use any recreational Drugs:: No ROS Review of Systems Constitutional: See HPI, Fever, Weakness and Fatigue Eyes: No Symptoms Reported and See HPI ENTM: No Symptoms Reported, See HPI and Nose Congestion; negative Nose Discharge Respiratoy: See HPI, Moist Cough and Short of Breath; negative Wheezing Cardiovascular: No Symptoms Reported and See HPI; negative Chest Pain Gastrointestinal/Abdominal: No Symptoms Reported and See HPI; negative Abdominal Pain, Diarrhea and Vomiting Genitourinary: No Symptoms Reported and See HPI; negative Dysuria Neurological: See HPI and Weakness Musculoskeletal: See HPI and Back Pain Integumentary: No Symptoms Reported and See HPI; negative Rash and Juandice Hematologic/Lymphatic: See HPI and Easy Bruising Endocrine: No Symptoms Reported and See HPI; negative Increased Thirst and Increased Urine Psychiatric: No Symptoms Reported and See HPI All Other Systems: Reviewed and Negative PE Vitals Vital Signs: Temp Pulse Resp BP BP Pulse Ox 12/19/21 20:30 146/64 12/19/21 20:15 145/63 12/19/21 20:00 139/63 12/19/21 19:45 132/61 12/19/21 19:30 128/59 12/19/21 19:15 122/59 12/19/21 19:00 95 H 20 132/55 97 12/19/21 18:45 92 H 20 137/63 97 12/19/21 18:30 91 H 20 145/64 98 12/19/21 15:08 98.9 F 84 22 127/64 94 L 12/19/21 13:58 99.8 F H 83 22 121/57 94 L 12/12/21 12:00 153/67 General Limitations: Altered Mental Status General Appearance: Alert and In Distress (ON EXERTION.) Head Head Exam: Normal Inspection, Atraumatic and Normocephalic Head Exam Physical: Other (NONE NOTED.) Eyes Eye exam: Normal Appearance; negative Scleral Icterus and Conjunctival Injection ENT ENT Exam: Normal Exam, Normal Oropharynx, Normal External Ear Exam and TM's Normal Bilaterally External Ear Exam: Normal External Inspection; negative Mastoid Tenderness TM/Canal Exam: Bilateral: Normal Nose Exam: Normal Nose Exam Mouth Exam: Normal Inspection; negative Lip Swelling and Tongue Swelling Throat Exam: Normal Inspection; negative Tonsillar Erythema, Tonsillomegaly and Tonsillar Exudate Neck Neck Exam: Normal Inspection and Trachea Midline; negative Tenderness Chest Chest Inspection: Normal Inspection and Symmetric Chest Wall Rise; negative Tenderness Respiratory Respiratory Exam: Normal Lung Sounds Bilat; negative Accessory Muscle Use, Chest Wall Tenderness and Respiratory Distress Respiratory Exam: Bilateral: Rhonchi and Lower: Rhonchi Cardiovascular Cardiovascular Exam: Regular Rate, Normal Rhythm, Normal Heart Sounds and Systolic Murmur; negative Diastolic Murmur Abdominal Exam Abdominal Exam: Normal Inspection, Normal Bowel Sounds and Soft; negative Tenderness Extremities Extremities Exam: Normal Inspection and Normal Capillary Refill Back Back Exam: (L) CVA Tenderness and Paraspinal Tenderness Neurological Neurological Exam: Alert, Oriented X3 and Motor Sensory Deficit Patient Oriented To: Person and Place Cranial Nerve Exam: Gag reflex (XI): Normal Motor Strength - LUE: 5/5 Motor Strength - RUE: 5/5 Motor Strength - LLE: 5/5 Motor Strength - RLE: 5/5 Upper Motor Neuron Exam: Babinski Sign: Normal Psychological Psychiatric Exam: Normal Affect and Normal Mood Skin Skin Exam: Dry MDM Additional Information Obtained Additional Information Obtained From: Old Records and Family Differential Diagnosis Metabolic: Dehydration, Hypercalcemia, Hypernatremia, Hypoglycemia, Hyponatremia and Hypoxemia Structural: CVA and Mass Lesion Infectious: Sepsis and UTI Environmental: Hyperthermia COURSE Treatment Treatment: SEE ORDERS. PATIENT PLACE ON NS IV AND GIVEN ROCEPHIN 1GM IVPB IN ER. LABS AND EKG AND XRAY RESULTS DISCUSSED WITH PATIENT DAUGHTER. PATIENT WILL BE ADMITTED TO HOSPITAL FOR FURTHER MANAGEMENT. Consultation Consultation Comments: DISCUSSED PATIENT WITH DR. PETERS. HE WILL ADMIT PATIENT. Education/Counseling Education/Counseling: Family Educated On: Diagnosis ROR Labs Reviewed Laboratory Results Reviewed?: Yes Result Diagrams: 12/23/21 06:05 12/23/21 06:05 Laboratory: 12/19/21 14:49 Urine,Catheterized Urine Culture - Final Lesley Tropicalis 12/19/21 14:40 Blood Blood Culture - Final 12/19/21 14:30 Blood Blood Culture - Final WBC 26.6 X10^3/uL (3.6-10.0) H 12/19/21 14:30 RBC 3.68 X10^6/uL (3.5-5.4) 12/19/21 14:30 Hgb 9.0 g/dL (12.0-16.0) L 12/19/21 14:30 Hct 28.0 % (36.0-47.0) L 12/19/21 14:30 MCV 76.0 fL (80.0-100.0) L 12/19/21 14:30 MCH 24.5 pg (27.0-34.0) L 12/19/21 14:30 MCHC 32.2 g/dL (33.0-35.0) L 12/19/21 14:30 RDW 20.5 % (11.6-16.5) H 12/19/21 14:30 Plt Count 696 X10^3/uL (150.0-450.0) H 12/19/21 14:30 Plt Count Comment Increased (ADEQUATE) A 12/19/21 14:30 MPV 7.4 fL (7.4-11.0) 12/19/21 14:30 Neut % (Auto) 85.6 % (42.0-75.0) H 12/19/21 14:30 Lymph % (Auto) 9.2 % (21.0-51.0) L 12/19/21 14:30 [place] % (Auto) 3.6 % (0.0-13.0) 12/19/21 14:30 Eos % (Auto) 0.6 % (0.9-2.9) L 12/19/21 14:30 Baso % (Auto) 1.0 % (0.2-1.0) 12/19/21 14:30 Neut # (Auto) 22.8 x10^3/uL (2.2-4.8) H 12/19/21 14:30 Lymph # (Auto) 2.4 X10^3/uL (1.3-2.9) 12/19/21 14:30 [place] # (Auto) 1.0 x10^3/uL (0.3-0.8) H 12/19/21 14:30 Eos # (Auto) 0.2 x10^3/uL (0.0-0.2) 12/19/21 14:30 Baso # (Auto) 0.3 X10^3/uL (0.0-0.1) H 12/19/21 14:30 Absolute Nucleated RBC 0.0 /100WBC 12/19/21 14:30 Total Counted 100 12/19/21 14:30 Neutrophils % (Manual) 80 % (39-76) H 12/19/21 14:30 Band Neutrophils % 5 % (0-10) 12/19/21 14:30 Lymphocytes % (Manual) 11 % (13-43) L 12/19/21 14:30 Monocytes % (Manual) 4 % (4-9) 12/19/21 14:30 Plt Morphology Comment Normal (NORMAL) 12/19/21 14:30 RBC Morphology Abnormal (NORMAL) A 12/19/21 14:30 Anisocytosis 1+ A 12/19/21 14:30 Sodium 142 mmol/L (136-145) 12/19/21 14:30 Corrected Sodium TNP 12/19/21 14:30 Potassium 4.1 mmol/L (3.5-5.1) 12/19/21 14:30 Chloride 104 mmol/L (98-107) 12/19/21 14:30 Carbon Dioxide 27.4 mmol/L (21-32) 12/19/21 14:30 BUN 35 mg/dL (7-18) H 12/19/21 14:30 Creatinine 1.89 mg/dL (0.55-1.02) H 12/19/21 14:30 Est GFR (MDRD) Af Amer 33 (>60) L 12/19/21 14:30 Est GFR (MDRD) Non-Af 27 (>60) L 12/19/21 14:30 Glucose 94 mg/dL (65-99) 12/19/21 14:30 Lactic Acid 0.8 mmol/L (0.4-2.0) 12/19/21 14:30 Calcium 8.7 mg/dL (8.5-10.1) 12/19/21 14:30 Corrected Calcium 10.4 mg/dL (8.5-10.1) H 12/19/21 14:30 Total Bilirubin 0.30 mg/dL (0.2-1.0) 12/19/21 14:30 AST 27 Units/L (15-37) 12/19/21 14:30 ALT 19 Units/L (12-78) 12/19/21 14:30 Alkaline Phosphatase 77 Units/L (46-116) 12/19/21 14:30 Creatine Kinase 13 Units/L (26-192) L 12/19/21 14:30 CK-MB (CK-2) < 1.0 ng/mL (0-4.0) 12/19/21 14:30 CK/CKMB % Calc 7.7 % (<4) 12/19/21 14:30 Troponin I High Sens 11.0 ng/L (4.0-60.0) 12/19/21 14:30 Total Protein 6.9 g/dL (6.4-8.2) 12/19/21 14:30 Albumin 1.9 g/dL (3.4-5.0) L 12/19/21 14:30 Globulin 5.0 g/dL (2.5-4.5) H 12/19/21 14:30 Albumin/Globulin Ratio 0.4 Ratio (1.1-2.1) L 12/19/21 14:30 Specimen Type Catherized urine 12/19/21 14:49 Urine Color Yellow (YELLOW) 12/19/21 14:49 Urine Appearance Cloudy (CLEAR) 12/19/21 14:49 Urine pH 6.0 (5.0 - 8.0) 12/19/21 14:49 Ur Specific [place] 1.010 (1.000-1.030) 12/19/21 14:49 Urine Protein 2+ (NEGATIVE) 12/19/21 14:49 Urine Glucose (UA) Negative (NEGATIVE) 12/19/21 14:49 Urine Ketones Negative (NEGATIVE) 12/19/21 14:49 Urine Occult Blood 4+ (NEGATIVE) 12/19/21 14:49 Urine Nitrite Negative (NEGATIVE) 12/19/21 14:49 Urine Bilirubin Negative (NEGATIVE) 12/19/21 14:49 Urine Urobilinogen Normal (NORMAL) 12/19/21 14:49 Ur Leukocyte Esterase 3+ (NEGATIVE) 12/19/21 14:49 Urine RBC 30-50 /HPF (0-3) A 12/19/21 14:49 Urine WBC Tntc /HPF (0-5) A 12/19/21 14:49 Ur Squamous Epith Cells Rare /HPF (NEGATIVE) 12/19/21 14:49 Urine Bacteria 3+ /HPF (NEGATIVE) 12/19/21 14:49 Urine Yeast Many /HPF (NEGATIVE) 12/19/21 14:49 Ur Culture Indicated? Yes/culture set up 12/19/21 14:49 SARS CoV-2 RNA Rapid CLARA Negative (NEGATIVE) 12/19/21 20:20 XRAY XRAY Interpreted by: Radiologist (report noted.) and Self EKG Rate: 86 [place]: Normal Rhythm: NSR Block: None Hypertrophy: None ST: Old, Ant, Infarct and Nonsp Opioid Opioid Risk Tool Age (Hugo box if 16-45): No History of Preadolescent Sexual Abuse: No Total: 0 Total Score Risk Category: Low Risk Copyright: [facility] predicting aberrant behaviors Diagnosis Discharge Problem: Acute dehydration Sepsis Qualifiers: Sepsis type: sepsis due to unspecified organism Sepsis acute organ dysfunction status: unspecified Qualified Code(s): A41.9 - Sepsis, unspecified organism Pneumonia Qualifiers: Pneumonia type: due to unspecified organism Laterality: left Lung location: lower lobe of lung Qualified Code(s): J18.9 - Pneumonia, unspecified organism Altered mental status Qualifiers: Altered mental status type: transient alteration of awareness Qualified Code(s): R40.4 - Transient alteration of awareness Instructions Instructions: Wound Infection PICC Insertion, Care After Antibiotic Medicine, Adult Preventing Pressure Injuries Urinary Tract Infection, Adult, [id number] How to Change Your Wound Dressing Hypertension, Adult, [id number] Forms: Excuse From Work or School Precautions for COVID19 [facility] Social Distancing
[2021-12-19 14:56] LABS: BASOPHILS # (AUTO) 0.3 X10^3/uL (0.0-0.1); EOSINOPHILS # (AUTO) 0.2 x10^3/uL (0.0-0.2); EOSINOPHILS % (AUTO) 0.6 % (0.9-2.9); LYMPHOCYTES # (AUTO) 2.4 X10^3/uL (1.3-2.9); LYMPHOCYTES % (AUTO) 9.2 % (21.0-51.0); MEAN CORPUSCULAR HEMOGLOBIN 24.5 pg (27.0-34.0); MEAN CORPUSCULAR HGB CONC 32.2 g/dL (33.0-35.0); MEAN PLATELET VOLUME 7.4 fL (7.4-11.0); MONOCYTES % (AUTO) 3.6 % (0.0-13.0); NEUTROPHILS # (AUTO) 22.8 x10^3/uL (2.2-4.8); NEUTROPHILS % (AUTO) 85.6 % (42.0-75.0); RED BLOOD COUNT 3.68 X10^6/uL (3.5-5.4); RED CELL DISTRIBUTION WIDTH 20.5 % (11.6-16.5); WHITE BLOOD COUNT 26.6 X10^3/uL (3.6-10.0)
[2021-12-19 15:01] LABS: BILIRUBIN,URINE NEGATIVE (NEGATIVE); BLOOD/HEMOGLOBIN,URINE 4+ (NEGATIVE); GLUCOSE, URINE NEGATIVE (NEGATIVE); KETONES,URINE NEGATIVE (NEGATIVE); LEUKOCYTE ESTERASE ,URINE 3+ (NEGATIVE); NITRITES,URINE NEGATIVE (NEGATIVE); PROTEIN,URINE 2+ (NEGATIVE); UROBILINOGEN,URINE NORMAL (NORMAL)
[2021-12-19 15:03] LABS: LACTIC ACID 0.8 mmol/L (0.4-2.0)
--- NOTE | 2021-12-19 15:09 | CT ---
HISTORYAMS, UTISTUDYBRAIN W/O CONCOMPARISONNone available.TECHNIQUEAxial non-contrast images of the head were obtained with coronal and sagittal reformats provided.Radiation dose: 1329.50 mGy-cm total DLPFINDINGSNo abnormal areas of acute attenuation in the brain parenchyma.Delacruz-white differentiation remains intact.No intracranial, extra-axial, fluid collection.No hemorrhage.Periventricular chronic microvascular disease.No mass, mass effect or midline shift.Age related brain parenchymal global atrophy.No ventriculomegaly.No acute fracture.Sinuses are well aerated.Mastoid air cells are well aerated.Globes and intra-orbital contents are unremarkable.IMPRESSIONNo acute intracranial abnormality identified.Electronically signed by: Luis Castro (Dec 19, 2021 15:08:10)
--- NOTE | 2021-12-19 15:09 | RAD ---
HISTORYAMS, SOB, UTI HTN, DM, GB, HYSTSTUDYCHEST, 1 [id number]/12/2022FINDINGSThe trachea is midline. Normal heart size. There is a right-sided PICC line with the tip in the SVC. There is no evidence of pleural effusion or pneumothorax. There are new new linear radiopacities in the left base atelectasis versus an early pneumoniaIMPRESSIONSmall radiopacities in the left base atelectasis versus an early pneumoniaElectronically signed by: Jessika Cruz (Dec 19, 2021 15:07:11)
[2021-12-19 15:11] LABS: ALANINE AMINOTRANSFERASE 19 Units/L (12-78); ALBUMIN 1.9 g/dL (3.4-5.0); ALKALINE PHOSPHATASE 77 Units/L (46-116); ASPARTATE AMINO TRANSFERASE 27 Units/L (15-37); BLOOD UREA NITROGEN 35 mg/dL (7-18); CALCIUM 8.7 mg/dL (8.5-10.1); CARBON DIOXIDE 27.4 mmol/L (21-32); CHLORIDE 104 mmol/L (98-107); CKMB % 7.7 % (<4); COR CA(FOR HYPOALB) 10.4 mg/dL (8.5-10.1); CREATINE KINASE 13 Units/L (26-192); CREATINE KINASE MB < 1.0 ng/mL (0-4.0); CREATININE 1.89 mg/dL (0.55-1.02); SODIUM 142 mmol/L (136-145); TOTAL PROTEIN 6.9 g/dL (6.4-8.2); eGFR NON BLACK RACES 27 (>60)
[2021-12-19 15:12] LABS: APPEARANCE,URINE CLOUDY (CLEAR); BACTERIA,URINE 3+ /HPF (NEGATIVE); COLOR,URINE YELLOW (YELLOW); RBC,URINE 30-50 /HPF (0-3); SQUAMOUS EPITHELIAL CELL,UR RARE /HPF (NEGATIVE); YEAST,URINE MANY /HPF (NEGATIVE)
[2021-12-19 15:24] LABS: BAND NEUTROPHILS % 5 % (0-10)
[2021-12-19 15:25] LABS: ANISOCYTOSIS 1+; PLATELET MORPHOLOGY COMMENT NORMAL (NORMAL)
[2021-12-19] MEDS ORDERED: ROCEPHIN 1 GRAM IV PREMIX 1 G/50 ML IV.SOLN. IV ONE ×2 (16:25→16:31)
[2021-12-19] MEDS ORDERED: LEVAQUIN PREMIX IV 500 MG 500 MG/100 ML BAG IV SCH (21:00)
[2021-12-19] MEDS ORDERED: LEVAQUIN PREMIX IV 500 MG 500 MG/100 ML BAG IV ONE (21:23)
[2021-12-19] MEDS ORDERED: FORTAZ or TAZICEF VIAL INJ ONE (21:23)
[2021-12-19] MEDS ORDERED: NS 100 ML IV + SPIKE MINIBAG* 100 ML IV ONE (21:24)
[2021-12-19] MEDS: FORTAZ or TAZICEF VIAL INJ 1 G in NS 100 ML IV + SPIKE MINIBAG* 100 ML IV SCH ×2 (21:33→22:48)
[2021-12-19] MEDS ORDERED: NS 1,000 ML IV 1,000 ML ONE (22:56)
[2021-12-19] MEDS: NS 1,000 ML IV 1,000 ML IV SCH (23:09)
[2021-12-20 00:25] LABS: CKMB % 6.3 % (<4); CREATINE KINASE 16 Units/L (26-192); CREATINE KINASE MB < 1.0 ng/mL (0-4.0)
[2021-12-20] MEDS ORDERED: NORCO 5/325 MG TAB ONE ×2 (05:00→09:22)
[2021-12-20] MEDS ORDERED: NS 100 ML IV + SPIKE MINIBAG* 100 ML IV ONE ×2 (05:00→09:23)
[2021-12-20] MEDS ORDERED: FORTAZ or TAZICEF VIAL INJ ONE ×2 (05:00→09:22)
[2021-12-20] MEDS: FORTAZ or TAZICEF VIAL INJ 1 G in NS 100 ML IV + SPIKE MINIBAG* 100 ML IV SCH ×3 (05:11→21:35)
[2021-12-20] MEDS ORDERED: NORCO 5/325 MG TAB PO PRN ×2 (05:35→05:38)
[2021-12-20] MEDS ORDERED: ARTIFICIAL TEARS DROPS OP SCH (05:38)
[2021-12-20] MEDS ORDERED: MERREM VIAL IV SCH (05:38)
[2021-12-20] MEDS ORDERED: NS 100 ML IV 100 ML ONE ×2 (05:46→08:39)
[2021-12-20] MEDS ORDERED: MERREM VIAL ONE ×2 (05:46→08:39)
[2021-12-20] MEDS ORDERED: [UNRECOGNIZED DRUG - OTHER] PO SCH (06:00)
[2021-12-20 06:05] LABS: BASOPHILS # (AUTO) 0.1 X10^3/uL (0.0-0.1); BASOPHILS % (AUTO) 0.5 % (0.2-1.0); EOSINOPHILS % (AUTO) 0.2 % (0.9-2.9); HEMOGLOBIN 8.5 g/dL (12.0-16.0); LYMPHOCYTES # (AUTO) 1.9 X10^3/uL (1.3-2.9); LYMPHOCYTES % (AUTO) 9.6 % (21.0-51.0); MEAN CORPUSCULAR HEMOGLOBIN 24.7 pg (27.0-34.0); MEAN CORPUSCULAR HGB CONC 32.7 g/dL (33.0-35.0); MEAN CORPUSCULAR VOLUME 75.6 fL (80.0-100.0); MEAN PLATELET VOLUME 7.3 fL (7.4-11.0); MONOCYTES # (AUTO) 0.8 x10^3/uL (0.3-0.8); MONOCYTES % (AUTO) 3.9 % (0.0-13.0); NEUTROPHILS # (AUTO) 17.2 x10^3/uL (2.2-4.8); NEUTROPHILS % (AUTO) 85.8 % (42.0-75.0); RED BLOOD COUNT 3.44 X10^6/uL (3.5-5.4); RED CELL DISTRIBUTION WIDTH 20.9 % (11.6-16.5)
[2021-12-20 06:21] LABS: ALANINE AMINOTRANSFERASE 15 Units/L (12-78); ALBUMIN 1.7 g/dL (3.4-5.0); ALKALINE PHOSPHATASE 72 Units/L (46-116); ASPARTATE AMINO TRANSFERASE 22 Units/L (15-37); BLOOD UREA NITROGEN 32 mg/dL (7-18); CALCIUM 8.3 mg/dL (8.5-10.1); CHLORIDE 103 mmol/L (98-107); COR CA(FOR HYPOALB) 10.1 mg/dL (8.5-10.1); COR NA(FOR HYPERGLY) 143 mmol/L (136-145); CREATINE KINASE 20 Units/L (26-192); CREATINE KINASE MB < 1.0 ng/mL (0-4.0); CREATININE 1.45 mg/dL (0.55-1.02); MAGNESIUM 1.4 mg/dL (1.7-2.9); SODIUM 141 mmol/L (136-145); TOTAL PROTEIN 6.4 g/dL (6.4-8.2); eGFR NON BLACK RACES 36 (>60)
[2021-12-20 06:45] LABS: PLATELET MORPHOLOGY COMMENT NORMAL (NORMAL)
[2021-12-20 06:46] LABS: ANISOCYTOSIS 1+; HYPOCHROMASIA SLIGHT; MICROCYTOSIS SLIGHT
[2021-12-20] MEDS ORDERED: BROVANA ONE (07:34)
[2021-12-20] MEDS ORDERED: PULMICORT NEB TX 0.5 MG NEB ONE (07:34)
[2021-12-20] MEDS: BROVANA IN SCH (08:14)
[2021-12-20] MEDS: PULMICORT NEB TX 0.5 MG NEB SCH (08:14)
[2021-12-20] MEDS ORDERED: MICRO K EXTEN CAP 10 MEQ PO ONE (08:39)
[2021-12-20] MEDS ORDERED: PROTONIX TAB 40 MG PO ONE (08:39)
[2021-12-20] MEDS ORDERED: LEVAQUIN PREMIX IV 500 MG 500 MG/100 ML BAG IV ONE (08:40)
[2021-12-20] MEDS ORDERED: PREVAGEN 10 MG PO SCH (09:00)
[2021-12-20] MEDS ORDERED: LEVAQUIN PREMIX IV 500 MG 500 MG/100 ML BAG IV NR (09:00)
[2021-12-20] MEDS: ALDACTONE TAB 25 MG PO SCH (09:12)
[2021-12-20] MEDS: APRESOLINE TAB 25 MG PO SCH (09:12)
[2021-12-20] MEDS: FERROUS GLUCONATE PO SCH (09:13)
[2021-12-20] MEDS: LINZESS PO SCH (09:14)
[2021-12-20] MEDS: MERREM VIAL IV SCH (09:15)
[2021-12-20] MEDS: NEURONTIN CAP 300 MG PO SCH ×2 (09:16→16:08)
[2021-12-20] MEDS: SYNTHROID 50 mcg TAB PO SCH (09:17)
[2021-12-20] MEDS: TAB-A-VITE PO SCH (09:18)
[2021-12-20] MEDS: VITAMIN D3 25 mcg (1,000 UNITS) PO SCH (09:18)
[2021-12-20] MEDS: ZYLOPRIM PO SCH (09:19)
[2021-12-20] MEDS ORDERED: ULTRAM ONE (09:21)
[2021-12-20] MEDS ORDERED: LASIX ONE (09:22)
[2021-12-20] MEDS: LASIX PO SCH (09:25)
[2021-12-20] MEDS: ULTRAM PO SCH (09:26)
[2021-12-20] MEDS: MICRO K EXTEN CAP 10 MEQ PO SCH (09:26)
[2021-12-20] MEDS: PROTONIX TAB 40 MG PO SCH (09:26)
[2021-12-20] MEDS: NS 1,000 ML IV 1,000 ML IV SCH (11:44)
--- NOTE | 2021-12-20 14:16 | MRI ---
HISTORYWound of left heel, diabetes, abnormal x-ray.STUDYMRI left foot without and with IV contrastCOMPARISONX-ray 12/10/2021TECHNIQUEMRI of the left footwithout and with IV contrast is performed using standard sequences in multiple planes. 20 cc MultiHance IV contrast.FINDINGSThere is soft tissue defect in the posterior aspect of the heel. This is very near the Achilles insertion on the calcaneus. Achilles tendon appears normal. There is a very tiny amount of edema in the calcaneus adjacent to this region. Probable tiny amount of enhancement to this edema and very minimal osteomyelitis of the calcaneus at the insertion of the Achilles tendon may be present. No bone destruction is seen. Areas of abnormalities suggested on x-ray appear normal.Very minimal cellulitis is suspected in the subcutaneous soft tissues of the heel without evidence of an abscess. There is prominent edema in the midfoot and forefoot but this does not enhance and it is bland edema. No other areas suspicious for fracture or osteomyelitis are seen. No tendon tear is identified.IMPRESSIONSkin ulceration is seen in the heel with very minimal cellulitis in this region. There may be very slight amount of osteomyelitis in the adjacent calcaneus near the insertion of the Achilles tendon.No abscess is seen.Electronically signed by: Jeffery Robertson (Dec 20, 2021 14:14:35)
--- NOTE | 2021-12-20 14:51 | DR.H&P ---
H&P History & Physical for Day of: H&P Date: 12/19/21 Chief Complaint Chief Complaint: AMS Allergies Allergies Allergy/AdvReac Type Severity Reaction Status Date / Time codeine Allergy Verified 12/19/21 13:53 History of Present Illness History of Present Illness: This is a pleasant 86-year-old white female who had woken up confused. I saw her in the office the previous day where she was at her normal baseline. Her family checked her O2 sat and her glucose which were both normal. EMS was called and they brought patient to the ED for further evaluation and treatment. She was found to have fever and an UTI as well-as CAP. She also has a left heel stag 3 ulcer. She was to undergo an MRI as an outpatient for possible confirmation of Osteomyelitis in the left Calcaneus bone. Past Medical History Past Medical History: CHF, Coronary Artery Disease, Diabetes, Dyslipidemia, Migraines, Hypertension and Hypothyroidism Past Surgical History Surgical History: Cholecystectomy and Hysterectomy Family History Family Medical History: Cancer and Hypertension Social History Does patient currently use any type of tobacco product: No Have you used tobacco products in the last 12 months: No Type of Tobacco Use: None Does any household member use tobacco: No Alcohol Use: None Drug Use: None Medications Home Medications: codeine Allergy (Verified 12/19/21 13:53) Labs Result Diagrams: 12/20/21 05:40 12/20/21 05:40 Labs: 12/19/21 14:49 Urine,Catheterized Urine Culture - Preliminary Laboratory WBC 20.0 X10^3/uL (3.6-10.0) H 12/20/21 05:40 RBC 3.44 X10^6/uL (3.5-5.4) L 12/20/21 05:40 Hgb 8.5 g/dL (12.0-16.0) L 12/20/21 05:40 Hct 26.0 % (36.0-47.0) L 12/20/21 05:40 MCV 75.6 fL (80.0-100.0) L 12/20/21 05:40 MCH 24.7 pg (27.0-34.0) L 12/20/21 05:40 MCHC 32.7 g/dL (33.0-35.0) L 12/20/21 05:40 RDW 20.9 % (11.6-16.5) H 12/20/21 05:40 Plt Count 591 X10^3/uL (150.0-450.0) H 12/20/21 05:40 Plt Count Comment Increased (ADEQUATE) A 12/20/21 05:40 MPV 7.3 fL (7.4-11.0) L 12/20/21 05:40 Neut % (Auto) 85.8 % (42.0-75.0) H 12/20/21 05:40 Lymph % (Auto) 9.6 % (21.0-51.0) L 12/20/21 05:40 [place] % (Auto) 3.9 % (0.0-13.0) 12/20/21 05:40 Eos % (Auto) 0.2 % (0.9-2.9) L 12/20/21 05:40 Baso % (Auto) 0.5 % (0.2-1.0) 12/20/21 05:40 Neut # (Auto) 17.2 x10^3/uL (2.2-4.8) H 12/20/21 05:40 Lymph # (Auto) 1.9 X10^3/uL (1.3-2.9) 12/20/21 05:40 [place] # (Auto) 0.8 x10^3/uL (0.3-0.8) 12/20/21 05:40 Eos # (Auto) 0.0 x10^3/uL (0.0-0.2) 12/20/21 05:40 Baso # (Auto) 0.1 X10^3/uL (0.0-0.1) 12/20/21 05:40 Absolute Nucleated RBC 0.0 /100WBC 12/20/21 05:40 Total Counted 100 12/19/21 14:30 Neutrophils % (Manual) 80 % (39-76) H 12/19/21 14:30 Band Neutrophils % 5 % (0-10) 12/19/21 14:30 Lymphocytes % (Manual) 11 % (13-43) L 12/19/21 14:30 Monocytes % (Manual) 4 % (4-9) 12/19/21 14:30 Plt Morphology Comment Normal (NORMAL) 12/20/21 05:40 RBC Morphology Abnormal (NORMAL) A 12/20/21 05:40 Hypochromasia Slight A 12/20/21 05:40 Anisocytosis 1+ A 12/20/21 05:40 Microcytosis Slight A 12/20/21 05:40 ESR 126 MM/HOUR (0-20) H 12/20/21 05:40 PT 15.3 SECONDS (11.8-14.3) 12/20/21 05:40 INR Target Range - 12/20/21 05:40 INR 1.27 (0.8-1.3) 12/20/21 05:40 APTT 48.8 SECONDS (22.9-36.5) H 12/20/21 05:40 PTT Comment - 12/20/21 05:40 Sodium 141 mmol/L (136-145) 12/20/21 05:40 Corrected Sodium 143 mmol/L (136-145) 12/20/21 05:40 Potassium 3.9 mmol/L (3.5-5.1) 12/20/21 05:40 Chloride 103 mmol/L (98-107) 12/20/21 05:40 Carbon Dioxide 28.0 mmol/L (21-32) 12/20/21 05:40 BUN 32 mg/dL (7-18) H 12/20/21 05:40 Creatinine 1.45 mg/dL (0.55-1.02) H 12/20/21 05:40 Est GFR (MDRD) Af Amer 44 (>60) L 12/20/21 05:40 Est GFR (MDRD) Non-Af 36 (>60) L 12/20/21 05:40 Glucose 172 mg/dL (65-99) H 12/20/21 05:40 POC Glucose (mg/dL) 204 mg/dL (65-99) H 12/20/21 12:15 Lactic Acid 0.8 mmol/L (0.4-2.0) 12/19/21 14:30 Calcium 8.3 mg/dL (8.5-10.1) L 12/20/21 05:40 Corrected Calcium 10.1 mg/dL (8.5-10.1) 12/20/21 05:40 Magnesium 1.4 mg/dL (1.7-2.9) L 12/20/21 05:40 Total Bilirubin 0.30 mg/dL (0.2-1.0) 12/20/21 05:40 AST 22 Units/L (15-37) 12/20/21 05:40 ALT 15 Units/L (12-78) 12/20/21 05:40 Alkaline Phosphatase 72 Units/L (46-116) 12/20/21 05:40 Creatine Kinase 20 Units/L (26-192) L 12/20/21 05:40 CK-MB (CK-2) < 1.0 ng/mL (0-4.0) 12/20/21 05:40 CK/CKMB % Calc 5.0 % (<4) 12/20/21 05:40 Troponin I High Sens 12.5 ng/L (4.0-60.0) 12/20/21 05:40 C-Reactive Protein 160.80 mg/L (0-3.0) H 12/20/21 05:40 Total Protein 6.4 g/dL (6.4-8.2) 12/20/21 05:40 Albumin 1.7 g/dL (3.4-5.0) L 12/20/21 05:40 Globulin 4.7 g/dL (2.5-4.5) H 12/20/21 05:40 Albumin/Globulin Ratio 0.4 Ratio (1.1-2.1) L 12/20/21 05:40 Specimen Type Catherized urine 12/19/21 14:49 Urine Color Yellow (YELLOW) 12/19/21 14:49 Urine Appearance Cloudy (CLEAR) 12/19/21 14:49 Urine pH 6.0 (5.0 - 8.0) 12/19/21 14:49 Ur Specific [place] 1.010 (1.000-1.030) 12/19/21 14:49 Urine Protein 2+ (NEGATIVE) 12/19/21 14:49 Urine Glucose (UA) Negative (NEGATIVE) 12/19/21 14:49 Urine Ketones Negative (NEGATIVE) 12/19/21 14:49 Urine Occult Blood 4+ (NEGATIVE) 12/19/21 14:49 Urine Nitrite Negative (NEGATIVE) 12/19/21 14:49 Urine Bilirubin Negative (NEGATIVE) 12/19/21 14:49 Urine Urobilinogen Normal (NORMAL) 12/19/21 14:49 Ur Leukocyte Esterase 3+ (NEGATIVE) 12/19/21 14:49 Urine RBC 30-50 /HPF (0-3) A 12/19/21 14:49 Urine WBC Tntc /HPF (0-5) A 12/19/21 14:49 Ur Squamous Epith Cells Rare /HPF (NEGATIVE) 12/19/21 14:49 Urine Bacteria 3+ /HPF (NEGATIVE) 12/19/21 14:49 Urine Yeast Many /HPF (NEGATIVE) 12/19/21 14:49 Ur Culture Indicated? Yes/culture set up 12/19/21 14:49 SARS CoV-2 RNA Rapid CLARA Negative (NEGATIVE) 12/19/21 20:20 Review of Systems Constitutional: Fever Eyes: No Symptoms Reported ENT: No Symptoms Reported Respiratory: No Symptoms Reported Cardiovascular: No Symptoms Reported Gastrointestinal: No Symptoms Reported Genitourinary: Dysuria and Incontinence Musculoskeletal: Back Pain and Foot Pain Neurological: Weakness and Confusion Physical Exam Vital Signs: Temperature 98.2 F Pulse Rate [Left Brachial] 80 Pulse Rate 87 Respiratory Rate 17 Blood Pressure [Left Arm] 151/64 Blood Pressure 147/64 O2 Sat by Pulse Oximetry 95 Oriented: Person and Place Eyes: Normal Ear: Normal Nose: Normal Throat: Normal Respiratory: Clear Throughout Cardiovascular: Normal : Dysuria Auscultation: Bowel Sounds: Normal Palpation: Normal Tenderness: Normal Skin: Normal and Other (skin breakdown on sacrum) Musculoskeletal: Right, Left, Foot, Motor Deficit, Sensory Deficit and Instability Psychiatric: Anxiety Mood Description: Depressed and Anxious Affect: Anxious Speech Pattern: Clear Assessment/Plan (1) Acute UTI: Status: Acute Plan: Continue IV antibiotics (2) Osteomyelitis of foot, left, acute: Status: Acute Plan: IV antibiotics. Check MRI left heel to confirm Osteomyelitis. (3) Leukocytosis: Status: Acute (4) DM2 (diabetes mellitus, type 2): Status: Acute Plan: Sliding scale reg. insulin. (5) Hypothyroidism: Status: Acute (6) HTN (hypertension): Status: Acute (7) Anemia, chronic disease: Status: Acute Plan: Monitor Hb. (8) CAP (community acquired pneumonia): Status: Acute Plan: IV antibiotics. F/U culture. Review H&P Reviewed: Yes Patient was examined?: Yes
--- NOTE | 2021-12-20 15:10 | PCM.PROG ---
Progress Note Progress Note for Day of Date of Exam: 12/20/21 Subjective Subjective: Foot hurts this morning. More alert today. WBC's down to 20,000 from 26,000. Planning on MRI of left heel. F/U with results. Hb is now 8.5. Vital signs stable. Past Medical Family Social History Past Med/Fam/Surg Hx: No changes since H&P Allergies: Allergies codeine Allergy (Verified 12/19/21 13:53) Review of Systems ROS: No change since H&P Vital Signs and I&O's Vital Signs: Temperature 98.2 F Pulse Rate [Left Brachial] 80 Pulse Rate 87 Respiratory Rate 17 Blood Pressure [Left Arm] 151/64 Blood Pressure 147/64 O2 Sat by Pulse Oximetry 95 Intake and Output: Intake & Output 12/18/21 12/19/21 12/20/21 12/21/21 11:59 11:59 11:59 11:59 Intake Total 1020 / 1020 Output Total 1750 / 1750 Balance -730 / -730 Physical Exam Oriented: Person and Place Eyes: Normal Ear: Normal Nose: Normal Throat: Normal Respiratory: Normal Cardiovascular: Normal : Dysuria Auscultation: Bowel Sounds: Normal Tenderness: Normal Skin: Normal and Other (skin breakdown on sacrum) Musculoskeletal: Right, Left, Foot, Motor Deficit, Sensory Deficit and Instability Psychiatric: Anxiety Mood Description: Depressed and Anxious Affect: Anxious Speech Pattern: Clear Laboratory and Diagnostics Result Diagrams: 12/20/21 05:40 12/20/21 05:40 Labs: 12/19/21 14:49 Urine,Catheterized Urine Culture - Preliminary Laboratory WBC 20.0 X10^3/uL (3.6-10.0) H 12/20/21 05:40 RBC 3.44 X10^6/uL (3.5-5.4) L 12/20/21 05:40 Hgb 8.5 g/dL (12.0-16.0) L 12/20/21 05:40 Hct 26.0 % (36.0-47.0) L 12/20/21 05:40 MCV 75.6 fL (80.0-100.0) L 12/20/21 05:40 MCH 24.7 pg (27.0-34.0) L 12/20/21 05:40 MCHC 32.7 g/dL (33.0-35.0) L 12/20/21 05:40 RDW 20.9 % (11.6-16.5) H 12/20/21 05:40 Plt Count 591 X10^3/uL (150.0-450.0) H 12/20/21 05:40 Plt Count Comment Increased (ADEQUATE) A 12/20/21 05:40 MPV 7.3 fL (7.4-11.0) L 12/20/21 05:40 Neut % (Auto) 85.8 % (42.0-75.0) H 12/20/21 05:40 Lymph % (Auto) 9.6 % (21.0-51.0) L 12/20/21 05:40 [place] % (Auto) 3.9 % (0.0-13.0) 12/20/21 05:40 Eos % (Auto) 0.2 % (0.9-2.9) L 12/20/21 05:40 Baso % (Auto) 0.5 % (0.2-1.0) 12/20/21 05:40 Neut # (Auto) 17.2 x10^3/uL (2.2-4.8) H 12/20/21 05:40 Lymph # (Auto) 1.9 X10^3/uL (1.3-2.9) 12/20/21 05:40 [place] # (Auto) 0.8 x10^3/uL (0.3-0.8) 12/20/21 05:40 Eos # (Auto) 0.0 x10^3/uL (0.0-0.2) 12/20/21 05:40 Baso # (Auto) 0.1 X10^3/uL (0.0-0.1) 12/20/21 05:40 Absolute Nucleated RBC 0.0 /100WBC 12/20/21 05:40 Total Counted 100 12/19/21 14:30 Neutrophils % (Manual) 80 % (39-76) H 12/19/21 14:30 Band Neutrophils % 5 % (0-10) 12/19/21 14:30 Lymphocytes % (Manual) 11 % (13-43) L 12/19/21 14:30 Monocytes % (Manual) 4 % (4-9) 12/19/21 14:30 Plt Morphology Comment Normal (NORMAL) 12/20/21 05:40 RBC Morphology Abnormal (NORMAL) A 12/20/21 05:40 Hypochromasia Slight A 12/20/21 05:40 Anisocytosis 1+ A 12/20/21 05:40 Microcytosis Slight A 12/20/21 05:40 ESR 126 MM/HOUR (0-20) H 12/20/21 05:40 PT 15.3 SECONDS (11.8-14.3) 12/20/21 05:40 INR Target Range - 12/20/21 05:40 INR 1.27 (0.8-1.3) 12/20/21 05:40 APTT 48.8 SECONDS (22.9-36.5) H 12/20/21 05:40 PTT Comment - 12/20/21 05:40 Sodium 141 mmol/L (136-145) 12/20/21 05:40 Corrected Sodium 143 mmol/L (136-145) 12/20/21 05:40 Potassium 3.9 mmol/L (3.5-5.1) 12/20/21 05:40 Chloride 103 mmol/L (98-107) 12/20/21 05:40 Carbon Dioxide 28.0 mmol/L (21-32) 12/20/21 05:40 BUN 32 mg/dL (7-18) H 12/20/21 05:40 Creatinine 1.45 mg/dL (0.55-1.02) H 12/20/21 05:40 Est GFR (MDRD) Af Amer 44 (>60) L 12/20/21 05:40 Est GFR (MDRD) Non-Af 36 (>60) L 12/20/21 05:40 Glucose 172 mg/dL (65-99) H 12/20/21 05:40 POC Glucose (mg/dL) 204 mg/dL (65-99) H 12/20/21 12:15 Lactic Acid 0.8 mmol/L (0.4-2.0) 12/19/21 14:30 Calcium 8.3 mg/dL (8.5-10.1) L 12/20/21 05:40 Corrected Calcium 10.1 mg/dL (8.5-10.1) 12/20/21 05:40 Magnesium 1.4 mg/dL (1.7-2.9) L 12/20/21 05:40 Total Bilirubin 0.30 mg/dL (0.2-1.0) 12/20/21 05:40 AST 22 Units/L (15-37) 12/20/21 05:40 ALT 15 Units/L (12-78) 12/20/21 05:40 Alkaline Phosphatase 72 Units/L (46-116) 12/20/21 05:40 Creatine Kinase 20 Units/L (26-192) L 12/20/21 05:40 CK-MB (CK-2) < 1.0 ng/mL (0-4.0) 12/20/21 05:40 CK/CKMB % Calc 5.0 % (<4) 12/20/21 05:40 Troponin I High Sens 12.5 ng/L (4.0-60.0) 12/20/21 05:40 C-Reactive Protein 160.80 mg/L (0-3.0) H 12/20/21 05:40 Total Protein 6.4 g/dL (6.4-8.2) 12/20/21 05:40 Albumin 1.7 g/dL (3.4-5.0) L 12/20/21 05:40 Globulin 4.7 g/dL (2.5-4.5) H 12/20/21 05:40 Albumin/Globulin Ratio 0.4 Ratio (1.1-2.1) L 12/20/21 05:40 Specimen Type Catherized urine 12/19/21 14:49 Urine Color Yellow (YELLOW) 12/19/21 14:49 Urine Appearance Cloudy (CLEAR) 12/19/21 14:49 Urine pH 6.0 (5.0 - 8.0) 12/19/21 14:49 Ur Specific [place] 1.010 (1.000-1.030) 12/19/21 14:49 Urine Protein 2+ (NEGATIVE) 12/19/21 14:49 Urine Glucose (UA) Negative (NEGATIVE) 12/19/21 14:49 Urine Ketones Negative (NEGATIVE) 12/19/21 14:49 Urine Occult Blood 4+ (NEGATIVE) 12/19/21 14:49 Urine Nitrite Negative (NEGATIVE) 12/19/21 14:49 Urine Bilirubin Negative (NEGATIVE) 12/19/21 14:49 Urine Urobilinogen Normal (NORMAL) 12/19/21 14:49 Ur Leukocyte Esterase 3+ (NEGATIVE) 12/19/21 14:49 Urine RBC 30-50 /HPF (0-3) A 12/19/21 14:49 Urine WBC Tntc /HPF (0-5) A 12/19/21 14:49 Ur Squamous Epith Cells Rare /HPF (NEGATIVE) 12/19/21 14:49 Urine Bacteria 3+ /HPF (NEGATIVE) 12/19/21 14:49 Urine Yeast Many /HPF (NEGATIVE) 12/19/21 14:49 Ur Culture Indicated? Yes/culture set up 12/19/21 14:49 SARS CoV-2 RNA Rapid CLARA Negative (NEGATIVE) 12/19/21 20:20 Radiology Reviewed: Yes Plan (1) Acute UTI: Status: Acute Plan: Continue IV antibiotics (2) Osteomyelitis of foot, left, acute: Status: Acute Narrative Support Text: Worsening heel pain. Plan: IV antibiotics. Check MRI left heel to confirm Osteomyelitis. Add daily ESR's and CRP's. Will add [place] 7.5 mg for pain control. (3) Leukocytosis: Status: Acute (4) DM2 (diabetes mellitus, type 2): Status: Acute Plan: Sliding scale reg. insulin. (5) Hypothyroidism: Status: Acute (6) HTN (hypertension): Status: Acute (7) Anemia, chronic disease: Status: Acute Plan: Monitor Hb. (8) CAP (community acquired pneumonia): Status: Acute Plan: IV antibiotics. F/U culture.
[2021-12-20] MEDS: OSCAL+D or CALTRATE+D PO SCH (16:08)
[2021-12-21] MEDS ORDERED: ULTRAM PO ONE (09:00)
[2021-12-21] MEDS ORDERED: FORTAZ or TAZICEF VIAL INJ IVP ONE (09:00)
[2021-12-21] MEDS ORDERED: LASIX PO ONE (09:00)
[2021-12-21] MEDS ORDERED: MICRO K EXTEN CAP 10 MEQ PO ONE (09:00)
[2021-12-21] MEDS ORDERED: LEVAQUIN 250 MG IV ONE (09:00)
[2021-12-21] MEDS ORDERED: MERREM VIAL IVP ONE (09:00)
[2021-12-21] MEDS ORDERED: ALDACTONE TAB 25 MG PO ONE (09:00)
[2021-12-21] MEDS ORDERED: VITAMIN D3 125 mcg (5,000 UNITS) PO ONE (09:00)
[2021-12-21 13:35] LABS: ALBUMIN 1.7 g/dL (3.4-5.0); CALCIUM 8.6 mg/dL (8.5-10.1); CARBON DIOXIDE 27.7 mmol/L (21-32); COR CA(FOR HYPOALB) 10.4 mg/dL (8.5-10.1); CREATININE 1.16 mg/dL (0.55-1.02); MAGNESIUM 1.3 mg/dL (1.7-2.9); TOTAL PROTEIN 6.5 g/dL (6.4-8.2)
[2021-12-21 13:45] LABS: BASOPHILS # (AUTO) 0.1 X10^3/uL (0.0-0.1); BASOPHILS % (AUTO) 0.9 % (0.2-1.0); EOSINOPHILS # (AUTO) 0.2 x10^3/uL (0.0-0.2); EOSINOPHILS % (AUTO) 1.7 % (0.9-2.9); HEMATOCRIT 25.7 % (36.0-47.0); HEMOGLOBIN 8.1 g/dL (12.0-16.0); LYMPHOCYTES # (AUTO) 2.1 X10^3/uL (1.3-2.9); LYMPHOCYTES % (AUTO) 14.2 % (21.0-51.0); MEAN CORPUSCULAR HEMOGLOBIN 23.9 pg (27.0-34.0); MEAN CORPUSCULAR HGB CONC 31.5 g/dL (33.0-35.0); MEAN CORPUSCULAR VOLUME 75.9 fL (80.0-100.0); MEAN PLATELET VOLUME 7.4 fL (7.4-11.0); MONOCYTES # (AUTO) 0.7 x10^3/uL (0.3-0.8); MONOCYTES % (AUTO) 4.6 % (0.0-13.0); NEUTROPHILS # (AUTO) 11.5 x10^3/uL (2.2-4.8); NEUTROPHILS % (AUTO) 78.6 % (42.0-75.0); RED BLOOD COUNT 3.38 X10^6/uL (3.5-5.4); RED CELL DISTRIBUTION WIDTH 20.7 % (11.6-16.5); WHITE BLOOD COUNT 14.6 X10^3/uL (3.6-10.0)
[2021-12-21 13:47] LABS: ANISOCYTOSIS 1+; HYPOCHROMASIA 1+; MICROCYTOSIS SLIGHT; PLATELET MORPHOLOGY COMMENT NORMAL (NORMAL)
[2021-12-21] MEDS: FORTAZ or TAZICEF VIAL INJ 1 G in NS 100 ML IV + SPIKE MINIBAG* 100 ML IV SCH ×2 (15:04→21:02)
[2021-12-21] MEDS: LASIX PO SCH ×2 (15:04→21:04)
[2021-12-21] MEDS: APRESOLINE TAB 25 MG PO SCH ×2 (15:04→21:04)
[2021-12-21] MEDS: MERREM VIAL IV SCH (15:05)
[2021-12-21] MEDS: MICRO K EXTEN CAP 10 MEQ PO SCH ×2 (15:05→21:01)
[2021-12-21] MEDS: ULTRAM PO SCH ×2 (15:06→21:02)
[2021-12-21] MEDS: PROTONIX TAB 40 MG PO SCH ×2 (15:06→21:03)
[2021-12-21] MEDS: TAB-A-VITE PO SCH ×2 (15:06→21:06)
[2021-12-21] MEDS: NEURONTIN CAP 300 MG PO SCH ×3 (15:07→21:03)
[2021-12-21] MEDS: NS 1,000 ML IV 1,000 ML IV SCH ×2 (15:07→16:03)
[2021-12-21] MEDS: OSCAL+D or CALTRATE+D PO SCH ×2 (15:07→21:06)
[2021-12-21] MEDS: ALDACTONE TAB 25 MG PO SCH (15:08)
[2021-12-21] MEDS: FERROUS GLUCONATE PO SCH (15:09)
[2021-12-21] MEDS: SYNTHROID 50 mcg TAB PO SCH (15:09)
[2021-12-21] MEDS: LEVAQUIN PREMIX IV 250 MG 250 MG/50 ML BAG IV SCH (15:09)
[2021-12-21] MEDS: VITAMIN D3 25 mcg (1,000 UNITS) PO SCH (15:09)
[2021-12-21] MEDS: LINZESS PO SCH (15:10)
[2021-12-21] MEDS: ZYLOPRIM PO SCH (15:11)
[2021-12-21] MEDS: NovoLIN R (or HumuLIN R) SUBCUT PRN ×2 (17:30→21:24)
[2021-12-21] MEDS ORDERED: K-DUR TAB 20 MEQ PO PRN (17:44)
[2021-12-21] MEDS ORDERED: K-RIDER 10 MEQ/NS 100 ML 10 MEQ/100 ML BAG IV PRN (17:44)
[2021-12-21] MEDS ORDERED: MICRO K EXTEN CAP 10 MEQ PO PRN (17:44)
[2021-12-21] MEDS ORDERED: POTASSIUM CHL 60 MEQ/NS 0.45% 500 ML IV PRN (17:44)
[2021-12-21] MEDS ORDERED: POTASSIUM CHLORIDE LIQ 20 MEQ UDC PO PRN (17:44)
[2021-12-21] MEDS ORDERED: POTASSIUM CHL 40 MEQ/NS 0.45% 500 ML IV PRN (17:44)
[2021-12-21] MEDS ORDERED: KLOR-CON PO PRN (17:44)
[2021-12-21] MEDS: MAGNESIUM SULFATE 1 GRAM/100 mL PREMIX 1 G/100 ML BAG IV PRN ×3 (18:15→23:16)
--- NOTE | 2021-12-21 18:36 | PCM.PROG ---
Progress Note Progress Note for Day of Date of Exam: 12/21/21 Subjective Subjective: Foot feels better this morning. More alert today. WBC's down to 8. F/U with results. Hb is now 8.1 Vital signs stable. MRI of heel shows possible small osteomyelitis. She will need 3 phase bone scan to see if it is infact osteomyelitis. Pain is controlled today. More alert as well. Past Medical Family Social History Past Med/Fam/Surg Hx: No changes since H&P Allergies: Allergies codeine Allergy (Verified 12/19/21 13:53) Review of Systems ROS: No change since H&P Vital Signs and I&O's Vital Signs: Temperature 98.2 F Pulse Rate [Left Brachial] 80 Pulse Rate 76 Respiratory Rate 22 Blood Pressure [Left Arm] 151/64 Blood Pressure 151/68 O2 Sat by Pulse Oximetry 97 Intake and Output: Intake & Output 12/19/21 12/20/21 12/21/21 12/22/21 11:59 11:59 11:59 11:59 Intake Total 1020 / 1020 1240 / 1240 Output Total 1750 / 1750 1200 / 1200 1800 / 1800 Balance -730 / -730 -1200 / -1200 -560 / -560 Physical Exam Oriented: Person and Place Eyes: Normal Ear: Normal Nose: Normal Throat: Normal Respiratory: Normal Cardiovascular: Normal : Dysuria Auscultation: Bowel Sounds: Normal Tenderness: Normal Skin: Normal and Other (skin breakdown on sacrum) Musculoskeletal: Right, Left, Foot, Motor Deficit, Sensory Deficit and Instability Psychiatric: Anxiety Mood Description: Depressed and Anxious Affect: Anxious Speech Pattern: Clear Laboratory and Diagnostics Result Diagrams: 12/21/21 05:00 12/21/21 05:55 Labs: 12/19/21 14:40 Blood Blood Culture - Preliminary 12/19/21 14:30 Blood Blood Culture - Preliminary 12/19/21 14:49 Urine,Catheterized Urine Culture - Preliminary Laboratory WBC 14.6 X10^3/uL (3.6-10.0) H 12/21/21 05:00 RBC 3.38 X10^6/uL (3.5-5.4) L 12/21/21 05:00 Hgb 8.1 g/dL (12.0-16.0) L 12/21/21 05:00 Hct 25.7 % (36.0-47.0) L 12/21/21 05:00 MCV 75.9 fL (80.0-100.0) L 12/21/21 05:00 MCH 23.9 pg (27.0-34.0) L 12/21/21 05:00 MCHC 31.5 g/dL (33.0-35.0) L 12/21/21 05:00 RDW 20.7 % (11.6-16.5) H 12/21/21 05:00 Plt Count 586 X10^3/uL (150.0-450.0) H 12/21/21 05:00 Plt Count Comment Increased (ADEQUATE) A 12/21/21 05:00 MPV 7.4 fL (7.4-11.0) 12/21/21 05:00 Neut % (Auto) 78.6 % (42.0-75.0) H 12/21/21 05:00 Lymph % (Auto) 14.2 % (21.0-51.0) L 12/21/21 05:00 [place] % (Auto) 4.6 % (0.0-13.0) 12/21/21 05:00 Eos % (Auto) 1.7 % (0.9-2.9) 12/21/21 05:00 Baso % (Auto) 0.9 % (0.2-1.0) 12/21/21 05:00 Neut # (Auto) 11.5 x10^3/uL (2.2-4.8) H 12/21/21 05:00 Lymph # (Auto) 2.1 X10^3/uL (1.3-2.9) 12/21/21 05:00 [place] # (Auto) 0.7 x10^3/uL (0.3-0.8) 12/21/21 05:00 Eos # (Auto) 0.2 x10^3/uL (0.0-0.2) 12/21/21 05:00 Baso # (Auto) 0.1 X10^3/uL (0.0-0.1) 12/21/21 05:00 Absolute Nucleated RBC 0.0 /100WBC 12/21/21 05:00 Total Counted Cancelled 12/21/21 05:00 Neutrophils % (Manual) Cancelled 12/21/21 05:00 Band Neutrophils % Cancelled 12/21/21 05:00 Lymphocytes % (Manual) Cancelled 12/21/21 05:00 Monocytes % (Manual) Cancelled 12/21/21 05:00 Eosinophils % (Manual) Cancelled 12/21/21 05:00 Basophils % (Manual) Cancelled 12/21/21 05:00 Metamyelocytes % Cancelled 12/21/21 05:00 Myelocytes % Cancelled 12/21/21 05:00 Promyelocytes % Cancelled 12/21/21 05:00 Nucleated RBCs Cancelled 12/21/21 05:00 Atypical Lymphocytes Cancelled 12/21/21 05:00 Blast Cells Cancelled 12/21/21 05:00 Smudge Cells Cancelled 12/21/21 05:00 Toxic Granulation Cancelled 12/21/21 05:00 Dohle Bodies Cancelled 12/21/21 05:00 Krystian Rods Cancelled 12/21/21 05:00 Plt Clumps, EDTA Cancelled 12/21/21 05:00 Giant Platelets Cancelled 12/21/21 05:00 Plt Morphology Comment Normal (NORMAL) 12/21/21 05:00 RBC Morphology Abnormal (NORMAL) A 12/21/21 05:00 Dimorphic RBCs Cancelled 12/21/21 05:00 Polychromasia Cancelled 12/21/21 05:00 Hypochromasia 1+ A 12/21/21 05:00 Poikilocytosis Cancelled 12/21/21 05:00 Basophilic Stippling Cancelled 12/21/21 05:00 Anisocytosis 1+ A 12/21/21 05:00 Microcytosis Slight A 12/21/21 05:00 Macrocytosis Cancelled 12/21/21 05:00 Spherocytes Cancelled 12/21/21 05:00 Pappenheimer Bodies Cancelled 12/21/21 05:00 Sickle Cells Cancelled 12/21/21 05:00 Target Cells Cancelled 12/21/21 05:00 Tear Drop Cells Cancelled 12/21/21 05:00 Ovalocytes Cancelled 12/21/21 05:00 Stomatocytes Cancelled 12/21/21 05:00 Helmet Cells Cancelled 12/21/21 05:00 [place] Bodies Cancelled 12/21/21 05:00 [place] Rings Cancelled 12/21/21 05:00 Preet Cells Cancelled 12/21/21 05:00 Crenated Cell Cancelled 12/21/21 05:00 Acanthocytes (Spur) Cancelled 12/21/21 05:00 Rouleaux Cancelled 12/21/21 05:00 Schistocytes Cancelled 12/21/21 05:00 ESR 126 MM/HOUR (0-20) H 12/20/21 05:40 PT 15.3 SECONDS (11.8-14.3) 12/20/21 05:40 INR Target Range - 12/20/21 05:40 INR 1.27 (0.8-1.3) 12/20/21 05:40 APTT 48.8 SECONDS (22.9-36.5) H 12/20/21 05:40 PTT Comment - 12/20/21 05:40 Sodium 141 mmol/L (136-145) 12/21/21 05:55 Corrected Sodium 143 mmol/L (136-145) 12/21/21 05:55 Potassium 3.4 mmol/L (3.5-5.1) L 12/21/21 05:55 Chloride 103 mmol/L (98-107) 12/21/21 05:55 Carbon Dioxide 27.7 mmol/L (21-32) 12/21/21 05:55 BUN 23 mg/dL (7-18) H 12/21/21 05:55 Creatinine 1.16 mg/dL (0.55-1.02) H 12/21/21 05:55 Est GFR (MDRD) Af Amer 57 (>60) L 12/21/21 05:55 Est GFR (MDRD) Non-Af 47 (>60) L 12/21/21 05:55 Glucose 193 mg/dL (65-99) H 12/21/21 05:55 POC Glucose (mg/dL) 205 mg/dL (65-99) H 12/20/21 16:34 Lactic Acid 0.8 mmol/L (0.4-2.0) 12/19/21 14:30 Calcium 8.6 mg/dL (8.5-10.1) 12/21/21 05:55 Corrected Calcium 10.4 mg/dL (8.5-10.1) H 12/21/21 05:55 Magnesium 1.0 mg/dL (1.7-2.9) L 12/21/21 18:00 Total Bilirubin 0.30 mg/dL (0.2-1.0) 12/21/21 05:55 AST 22 Units/L (15-37) 12/21/21 05:55 ALT 15 Units/L (12-78) 12/21/21 05:55 Alkaline Phosphatase 63 Units/L (46-116) 12/21/21 05:55 Creatine Kinase 20 Units/L (26-192) L 12/20/21 05:40 CK-MB (CK-2) < 1.0 ng/mL (0-4.0) 12/20/21 05:40 CK/CKMB % Calc 5.0 % (<4) 12/20/21 05:40 Troponin I High Sens 12.5 ng/L (4.0-60.0) 12/20/21 05:40 C-Reactive Protein 109.00 mg/L (0-3.0) H 12/21/21 05:55 Total Protein 6.5 g/dL (6.4-8.2) 12/21/21 05:55 Albumin 1.7 g/dL (3.4-5.0) L 12/21/21 05:55 Globulin 4.8 g/dL (2.5-4.5) H 12/21/21 05:55 Albumin/Globulin Ratio 0.4 Ratio (1.1-2.1) L 12/21/21 05:55 Specimen Type Catherized urine 12/19/21 14:49 Urine Color Yellow (YELLOW) 12/19/21 14:49 Urine Appearance Cloudy (CLEAR) 12/19/21 14:49 Urine pH 6.0 (5.0 - 8.0) 12/19/21 14:49 Ur Specific [place] 1.010 (1.000-1.030) 12/19/21 14:49 Urine Protein 2+ (NEGATIVE) 12/19/21 14:49 Urine Glucose (UA) Negative (NEGATIVE) 12/19/21 14:49 Urine Ketones Negative (NEGATIVE) 12/19/21 14:49 Urine Occult Blood 4+ (NEGATIVE) 12/19/21 14:49 Urine Nitrite Negative (NEGATIVE) 12/19/21 14:49 Urine Bilirubin Negative (NEGATIVE) 12/19/21 14:49 Urine Urobilinogen Normal (NORMAL) 12/19/21 14:49 Ur Leukocyte Esterase 3+ (NEGATIVE) 12/19/21 14:49 Urine RBC 30-50 /HPF (0-3) A 12/19/21 14:49 Urine WBC Tntc /HPF (0-5) A 12/19/21 14:49 Ur Squamous Epith Cells Rare /HPF (NEGATIVE) 12/19/21 14:49 Urine Bacteria 3+ /HPF (NEGATIVE) 12/19/21 14:49 Urine Yeast Many /HPF (NEGATIVE) 12/19/21 14:49 Ur Culture Indicated? Yes/culture set up 12/19/21 14:49 SARS CoV-2 RNA Rapid CLARA Negative (NEGATIVE) 12/19/21 20:20 Radiology Reviewed: Yes Plan (1) Acute UTI: Status: Acute Plan: Continue IV antibiotics. (2) Osteomyelitis of foot, left, acute: Status: Acute Plan: IV antibiotics. Check MRI left heel to confirm Osteomyelitis. Add daily ESR's and CRP's. Will add [place] 7.5 mg for pain control. (3) Leukocytosis: Status: Acute Narrative Support Text: improving. Plan: cont. abx. (4) DM2 (diabetes mellitus, type 2): Status: Acute Plan: Sliding scale reg. insulin. (5) Hypothyroidism: Status: Acute (6) HTN (hypertension): Status: Acute (7) Anemia, chronic disease: Status: Acute Plan: Monitor Hb. (8) CAP (community acquired pneumonia): Status: Acute Narrative Support Text: Fever resolving. O2 sat normal. Plan: IV antibiotics. BC x2 neg at day 2. Check CXR in am. (9) Ulcer of left heel: Status: Acute
[2021-12-21] MEDS: SNACK - Diabetic Appropriate PO SCH (20:00)
[2021-12-21] MEDS: PULMICORT NEB TX 0.5 MG NEB SCH (21:02)
[2021-12-21] MEDS: BROVANA IN SCH (21:02)
[2021-12-21] MEDS: LIPITOR TAB 10 MG PO SCH (21:03)
[2021-12-21] MEDS: FLOMAX PO SCH (21:04)
[2021-12-22] MEDS: MAGNESIUM SULFATE 1 GRAM/100 mL PREMIX 1 G/100 ML BAG IV PRN ×3 (00:32→03:11)
--- NOTE | 2021-12-22 05:35 | RAD ---
PROCEDURE: Chest X-ray 1 View .HISTORY: Pneumonia.TECHNIQUE: AP portable done at 5:13 a.m..COMPARISON: 12/19/2021.TECHNICAL QUALITY: Satisfactory .FINDINGS:Normal size heart .Mediastinum and hilar regions show no masses or lymphadenopathy .Normal central vascularity .No pulmonary consolidation, masses, pleural fluid, or pneumothorax .No acute bony abnormality .IMPRESSION:No active cardiopulmonary disease .Electronically signed by: Odilon Camejo (Dec 22, 2021 05:33:51)
[2021-12-22] MEDS: OSCAL+D or CALTRATE+D PO SCH ×3 (05:48→21:31)
[2021-12-22] MEDS: NS 1,000 ML IV 1,000 ML IV SCH ×2 (05:48→15:57)
[2021-12-22] MEDS: NEURONTIN CAP 300 MG PO SCH ×3 (05:49→21:29)
[2021-12-22] MEDS: NovoLIN R (or HumuLIN R) SUBCUT PRN ×3 (05:52→21:40)
[2021-12-22 07:13] LABS: BASOPHILS % (AUTO) 0.3 % (0.2-1.0); EOSINOPHILS # (AUTO) 0.5 x10^3/uL (0.0-0.2); EOSINOPHILS % (AUTO) 2.9 % (0.9-2.9); HEMATOCRIT 23.6 % (36.0-47.0); HEMOGLOBIN 7.7 g/dL (12.0-16.0); LYMPHOCYTES # (AUTO) 2.5 X10^3/uL (1.3-2.9); LYMPHOCYTES % (AUTO) 15.8 % (21.0-51.0); MEAN CORPUSCULAR HEMOGLOBIN 24.6 pg (27.0-34.0); MEAN CORPUSCULAR HGB CONC 32.5 g/dL (33.0-35.0); MEAN CORPUSCULAR VOLUME 75.5 fL (80.0-100.0); MEAN PLATELET VOLUME 7.4 fL (7.4-11.0); MONOCYTES # (AUTO) 0.8 x10^3/uL (0.3-0.8); MONOCYTES % (AUTO) 5.1 % (0.0-13.0); NEUTROPHILS % (AUTO) 75.9 % (42.0-75.0); RED BLOOD COUNT 3.13 X10^6/uL (3.5-5.4); RED CELL DISTRIBUTION WIDTH 20.5 % (11.6-16.5); WHITE BLOOD COUNT 15.8 X10^3/uL (3.6-10.0)
[2021-12-22 07:39] LABS: ALANINE AMINOTRANSFERASE 20 Units/L (12-78); ALBUMIN 1.8 g/dL (3.4-5.0); ALKALINE PHOSPHATASE 63 Units/L (46-116); ASPARTATE AMINO TRANSFERASE 27 Units/L (15-37); BLOOD UREA NITROGEN 15 mg/dL (7-18); CALCIUM 8.4 mg/dL (8.5-10.1); CARBON DIOXIDE 30.4 mmol/L (21-32); COR CA(FOR HYPOALB) 10.2 mg/dL (8.5-10.1); CREATININE 1.02 mg/dL (0.55-1.02); MAGNESIUM 2.1 mg/dL (1.7-2.9); TOTAL PROTEIN 6.4 g/dL (6.4-8.2); eGFR NON BLACK RACES 55 (>60)
[2021-12-22 07:46] LABS: ANISOCYTOSIS 1+; PLATELET MORPHOLOGY COMMENT NORMAL (NORMAL)
[2021-12-22 07:47] LABS: HYPOCHROMASIA SLIGHT; MICROCYTOSIS SLIGHT
[2021-12-22 07:53] LABS: CHLORIDE 97 mmol/L (98-107); COR NA(FOR HYPERGLY) 140 mmol/L (136-145); SODIUM 137 mmol/L (136-145)
[2021-12-22] MEDS: FORTAZ or TAZICEF VIAL INJ 1 G in NS 100 ML IV + SPIKE MINIBAG* 100 ML IV SCH ×2 (08:29→21:32)
[2021-12-22] MEDS: LINZESS PO SCH (08:30)
[2021-12-22] MEDS: VITAMIN D3 25 mcg (1,000 UNITS) PO SCH (08:30)
[2021-12-22] MEDS: APRESOLINE TAB 25 MG PO SCH ×2 (08:30→21:28)
[2021-12-22] MEDS: SYNTHROID 50 mcg TAB PO SCH (08:31)
[2021-12-22] MEDS: PROTONIX TAB 40 MG PO SCH ×2 (08:31→21:29)
[2021-12-22] MEDS: LASIX PO SCH ×2 (08:31→21:26)
[2021-12-22] MEDS: FERROUS GLUCONATE PO SCH (08:31)
[2021-12-22] MEDS: ULTRAM PO SCH ×2 (08:32→21:28)
[2021-12-22] MEDS: TAB-A-VITE PO SCH ×2 (08:32→21:27)
[2021-12-22] MEDS: MICRO K EXTEN CAP 10 MEQ PO SCH ×2 (08:32→21:30)
[2021-12-22] MEDS: LEVAQUIN PREMIX IV 250 MG 250 MG/50 ML BAG IV SCH (08:34)
[2021-12-22] MEDS: ALDACTONE TAB 25 MG PO SCH (08:34)
[2021-12-22] MEDS: ZYLOPRIM PO SCH (08:35)
[2021-12-22] MEDS: PULMICORT NEB TX 0.5 MG NEB SCH ×2 (09:49→20:05)
[2021-12-22] MEDS: BROVANA IN SCH ×2 (09:49→20:05)
[2021-12-22] MEDS: SNACK - Diabetic Appropriate PO SCH (20:10)
[2021-12-22] MEDS: LIPITOR TAB 10 MG PO SCH (21:28)
[2021-12-22] MEDS: FLOMAX PO SCH (21:30)
[2021-12-23] MEDS: NS 1,000 ML IV 1,000 ML IV SCH ×2 (05:24→07:07)
[2021-12-23] MEDS: OSCAL+D or CALTRATE+D PO SCH ×2 (05:25→07:16)
[2021-12-23] MEDS: BROVANA IN SCH ×2 (05:26→09:16)
[2021-12-23] MEDS: NEURONTIN CAP 300 MG PO SCH ×2 (05:28→14:31)
[2021-12-23 06:51] LABS: BLOOD UREA NITROGEN 12 mg/dL (7-18); CALCIUM 8.7 mg/dL (8.5-10.1); CARBON DIOXIDE 30.2 mmol/L (21-32); CHLORIDE 101 mmol/L (98-107); COR NA(FOR HYPERGLY) 141 mmol/L (136-145); CREATININE 0.92 mg/dL (0.55-1.02); SODIUM 140 mmol/L (136-145); eGFR NON BLACK RACES > 60 (>60)
[2021-12-23 06:55] LABS: BASOPHILS # (AUTO) 0.1 X10^3/uL (0.0-0.1); BASOPHILS % (AUTO) 0.4 % (0.2-1.0); EOSINOPHILS # (AUTO) 0.6 x10^3/uL (0.0-0.2); EOSINOPHILS % (AUTO) 3.7 % (0.9-2.9); HEMATOCRIT 24.9 % (36.0-47.0); HEMOGLOBIN 8.1 g/dL (12.0-16.0); LYMPHOCYTES # (AUTO) 2.6 X10^3/uL (1.3-2.9); LYMPHOCYTES % (AUTO) 17.3 % (21.0-51.0); MEAN CORPUSCULAR HEMOGLOBIN 24.6 pg (27.0-34.0); MEAN CORPUSCULAR HGB CONC 32.5 g/dL (33.0-35.0); MEAN CORPUSCULAR VOLUME 75.9 fL (80.0-100.0); MEAN PLATELET VOLUME 7.4 fL (7.4-11.0); MONOCYTES # (AUTO) 0.6 x10^3/uL (0.3-0.8); MONOCYTES % (AUTO) 4.1 % (0.0-13.0); NEUTROPHILS # (AUTO) 11.4 x10^3/uL (2.2-4.8); NEUTROPHILS % (AUTO) 74.5 % (42.0-75.0); RED BLOOD COUNT 3.29 X10^6/uL (3.5-5.4); RED CELL DISTRIBUTION WIDTH 20.6 % (11.6-16.5); WHITE BLOOD COUNT 15.3 X10^3/uL (3.6-10.0)
[2021-12-23 07:15] LABS: ALANINE AMINOTRANSFERASE 25 Units/L (12-78); ALBUMIN 1.9 g/dL (3.4-5.0); ALKALINE PHOSPHATASE 61 Units/L (46-116); ASPARTATE AMINO TRANSFERASE 31 Units/L (15-37); COR CA(FOR HYPOALB) 10.4 mg/dL (8.5-10.1); TOTAL PROTEIN 6.3 g/dL (6.4-8.2)
[2021-12-23 07:17] LABS: ANISOCYTOSIS 1+; PLATELET MORPHOLOGY COMMENT NORMAL (NORMAL)
[2021-12-23 07:18] LABS: HYPOCHROMASIA SLIGHT; MICROCYTOSIS SLIGHT
[2021-12-23] MEDS: LEVAQUIN PREMIX IV 250 MG 250 MG/50 ML BAG IV SCH (08:33)
[2021-12-23] MEDS: FORTAZ or TAZICEF VIAL INJ 1 G in NS 100 ML IV + SPIKE MINIBAG* 100 ML IV SCH (08:33)
[2021-12-23] MEDS: LASIX PO SCH (08:36)
[2021-12-23] MEDS: PROTONIX TAB 40 MG PO SCH (08:36)
[2021-12-23] MEDS: ULTRAM PO SCH (08:36)
[2021-12-23] MEDS: ALDACTONE TAB 25 MG PO SCH (08:36)
[2021-12-23] MEDS: SYNTHROID 50 mcg TAB PO SCH (08:36)
[2021-12-23] MEDS: MICRO K EXTEN CAP 10 MEQ PO SCH (08:36)
[2021-12-23] MEDS: ZYLOPRIM PO SCH (08:37)
[2021-12-23] MEDS: TAB-A-VITE PO SCH (08:37)
[2021-12-23] MEDS: VITAMIN D3 25 mcg (1,000 UNITS) PO SCH (08:37)
[2021-12-23] MEDS: APRESOLINE TAB 25 MG PO SCH (08:37)
[2021-12-23] MEDS: FERROUS GLUCONATE PO SCH (08:37)
[2021-12-23] MEDS: LINZESS PO SCH (08:37)
[2021-12-23] MEDS: PULMICORT NEB TX 0.5 MG NEB SCH (09:16)
[2021-12-23] MEDS ORDERED: BUTT CREAM (COMPOUND) TOP PRN (10:35)
--- NOTE | 2021-12-23 11:55 | PCM.PROG ---
Progress Note Progress Note for Day of Date of Exam: 12/22/21 Subjective Subjective: Foot feels better this morning. More alert today. WBC's to 15.8. F/U with results. Hb is now 7.7 Vital signs stable. MRI of heel shows possible small osteomyelitis. Pain is controlled today. More alert as well. Past Medical Family Social History Past Med/Fam/Surg Hx: No changes since H&P Allergies: Allergies codeine Allergy (Verified 12/19/21 13:53) Review of Systems ROS: No change since H&P Vital Signs and I&O's Vital Signs: Temperature 98.1 F Pulse Rate [Left Brachial] 80 Pulse Rate 84 Respiratory Rate 16 Blood Pressure [Left Arm] 151/64 Blood Pressure 142/60 O2 Sat by Pulse Oximetry 93 Intake and Output: Intake & Output 12/20/21 12/21/21 12/22/21 12/23/21 11:59 11:59 11:59 11:59 Intake Total 1020 / 1020 2511 / 2511 2716 / 2716 Output Total 1750 / 1750 1200 / 1200 3825 / 3825 3400 / 3400 Balance -730 / -730 -1200 / -1200 -1314 / -1314 -684 / -684 Physical Exam Oriented: Person and Place Eyes: Normal Ear: Normal Nose: Normal Throat: Normal Respiratory: Normal Cardiovascular: Normal : Dysuria Auscultation: Bowel Sounds: Normal Tenderness: Normal Skin: Normal and Other (skin breakdown on sacrum) Musculoskeletal: Right, Left, Foot, Motor Deficit, Sensory Deficit and Instability Psychiatric: Anxiety Mood Description: Depressed and Anxious Affect: Anxious Speech Pattern: Clear and Appropriate Laboratory and Diagnostics Result Diagrams: 12/23/21 06:05 12/23/21 06:05 Labs: 12/19/21 14:40 Blood Blood Culture - Preliminary 12/19/21 14:30 Blood Blood Culture - Preliminary 12/19/21 14:49 Urine,Catheterized Urine Culture - Preliminary Laboratory WBC 15.3 X10^3/uL (3.6-10.0) H 12/23/21 06:05 RBC 3.29 X10^6/uL (3.5-5.4) L 12/23/21 06:05 Hgb 8.1 g/dL (12.0-16.0) L 12/23/21 06:05 Hct 24.9 % (36.0-47.0) L 12/23/21 06:05 MCV 75.9 fL (80.0-100.0) L 12/23/21 06:05 MCH 24.6 pg (27.0-34.0) L 12/23/21 06:05 MCHC 32.5 g/dL (33.0-35.0) L 12/23/21 06:05 RDW 20.6 % (11.6-16.5) H 12/23/21 06:05 Plt Count 573 X10^3/uL (150.0-450.0) H 12/23/21 06:05 Plt Count Comment Increased (ADEQUATE) A 12/23/21 06:05 MPV 7.4 fL (7.4-11.0) 12/23/21 06:05 Neut % (Auto) 74.5 % (42.0-75.0) 12/23/21 06:05 Lymph % (Auto) 17.3 % (21.0-51.0) L 12/23/21 06:05 [place] % (Auto) 4.1 % (0.0-13.0) 12/23/21 06:05 Eos % (Auto) 3.7 % (0.9-2.9) H 12/23/21 06:05 Baso % (Auto) 0.4 % (0.2-1.0) 12/23/21 06:05 Neut # (Auto) 11.4 x10^3/uL (2.2-4.8) H 12/23/21 06:05 Lymph # (Auto) 2.6 X10^3/uL (1.3-2.9) 12/23/21 06:05 [place] # (Auto) 0.6 x10^3/uL (0.3-0.8) 12/23/21 06:05 Eos # (Auto) 0.6 x10^3/uL (0.0-0.2) H 12/23/21 06:05 Baso # (Auto) 0.1 X10^3/uL (0.0-0.1) 12/23/21 06:05 Absolute Nucleated RBC 0.0 /100WBC 12/23/21 06:05 Total Counted Cancelled 12/21/21 05:00 Neutrophils % (Manual) Cancelled 12/21/21 05:00 Band Neutrophils % Cancelled 12/21/21 05:00 Lymphocytes % (Manual) Cancelled 12/21/21 05:00 Monocytes % (Manual) Cancelled 12/21/21 05:00 Eosinophils % (Manual) Cancelled 12/21/21 05:00 Basophils % (Manual) Cancelled 12/21/21 05:00 Metamyelocytes % Cancelled 12/21/21 05:00 Myelocytes % Cancelled 12/21/21 05:00 Promyelocytes % Cancelled 12/21/21 05:00 Nucleated RBCs Cancelled 12/21/21 05:00 Atypical Lymphocytes Cancelled 12/21/21 05:00 Blast Cells Cancelled 12/21/21 05:00 Smudge Cells Cancelled 12/21/21 05:00 Toxic Granulation Cancelled 12/21/21 05:00 Dohle Bodies Cancelled 12/21/21 05:00 Krystian Rods Cancelled 12/21/21 05:00 Plt Clumps, EDTA Cancelled 12/21/21 05:00 Giant Platelets Cancelled 12/21/21 05:00 Plt Morphology Comment Normal (NORMAL) 12/23/21 06:05 RBC Morphology Abnormal (NORMAL) A 12/23/21 06:05 Dimorphic RBCs Cancelled 12/21/21 05:00 Polychromasia Cancelled 12/21/21 05:00 Hypochromasia Slight A 12/23/21 06:05 Poikilocytosis Cancelled 12/21/21 05:00 Basophilic Stippling Cancelled 12/21/21 05:00 Anisocytosis 1+ A 12/23/21 06:05 Microcytosis Slight A 12/23/21 06:05 Macrocytosis Cancelled 12/21/21 05:00 Spherocytes Cancelled 12/21/21 05:00 Pappenheimer Bodies Cancelled 12/21/21 05:00 Sickle Cells Cancelled 12/21/21 05:00 Target Cells Cancelled 12/21/21 05:00 Tear Drop Cells Cancelled 12/21/21 05:00 Ovalocytes Cancelled 12/21/21 05:00 Stomatocytes Cancelled 12/21/21 05:00 Helmet Cells Cancelled 12/21/21 05:00 [place] Bodies Cancelled 12/21/21 05:00 [place] Rings Cancelled 12/21/21 05:00 Preet Cells Cancelled 12/21/21 05:00 Crenated Cell Cancelled 12/21/21 05:00 Acanthocytes (Spur) Cancelled 12/21/21 05:00 Rouleaux Cancelled 12/21/21 05:00 Schistocytes Cancelled 12/21/21 05:00 ESR 126 MM/HOUR (0-20) H 12/20/21 05:40 PT 15.3 SECONDS (11.8-14.3) 12/20/21 05:40 INR Target Range - 12/20/21 05:40 INR 1.27 (0.8-1.3) 12/20/21 05:40 APTT 48.8 SECONDS (22.9-36.5) H 12/20/21 05:40 PTT Comment - 12/20/21 05:40 Sodium 140 mmol/L (136-145) 12/23/21 06:05 Corrected Sodium 141 mmol/L (136-145) 12/23/21 06:05 Potassium 3.1 mmol/L (3.5-5.1) L 12/23/21 06:05 Chloride 101 mmol/L (98-107) 12/23/21 06:05 Carbon Dioxide 30.2 mmol/L (21-32) 12/23/21 06:05 BUN 12 mg/dL (7-18) 12/23/21 06:05 Creatinine 0.92 mg/dL (0.55-1.02) 12/23/21 06:05 Est GFR (MDRD) Af Amer > 60 (>60) 12/23/21 06:05 Est GFR (MDRD) Non-Af > 60 (>60) 12/23/21 06:05 Glucose 130 mg/dL (65-99) H 12/23/21 06:05 POC Glucose (mg/dL) 205 mg/dL (65-99) H 12/20/21 16:34 Lactic Acid 0.8 mmol/L (0.4-2.0) 12/19/21 14:30 Calcium 8.7 mg/dL (8.5-10.1) 12/23/21 06:05 Corrected Calcium 10.4 mg/dL (8.5-10.1) H 12/23/21 06:05 Magnesium 2.1 mg/dL (1.7-2.9) 12/22/21 06:10 Total Bilirubin 0.30 mg/dL (0.2-1.0) 12/23/21 06:05 AST 31 Units/L (15-37) 12/23/21 06:05 ALT 25 Units/L (12-78) 12/23/21 06:05 Alkaline Phosphatase 61 Units/L (46-116) 12/23/21 06:05 Creatine Kinase 20 Units/L (26-192) L 12/20/21 05:40 CK-MB (CK-2) < 1.0 ng/mL (0-4.0) 12/20/21 05:40 CK/CKMB % Calc 5.0 % (<4) 12/20/21 05:40 Troponin I High Sens 12.5 ng/L (4.0-60.0) 12/20/21 05:40 C-Reactive Protein 109.00 mg/L (0-3.0) H 12/21/21 05:55 Total Protein 6.3 g/dL (6.4-8.2) L 12/23/21 06:05 Albumin 1.9 g/dL (3.4-5.0) L 12/23/21 06:05 Globulin 4.4 g/dL (2.5-4.5) 12/23/21 06:05 Albumin/Globulin Ratio 0.4 Ratio (1.1-2.1) L 12/23/21 06:05 Specimen Type Catherized urine 12/19/21 14:49 Urine Color Yellow (YELLOW) 12/19/21 14:49 Urine Appearance Cloudy (CLEAR) 12/19/21 14:49 Urine pH 6.0 (5.0 - 8.0) 12/19/21 14:49 Ur Specific [place] 1.010 (1.000-1.030) 12/19/21 14:49 Urine Protein 2+ (NEGATIVE) 12/19/21 14:49 Urine Glucose (UA) Negative (NEGATIVE) 12/19/21 14:49 Urine Ketones Negative (NEGATIVE) 12/19/21 14:49 Urine Occult Blood 4+ (NEGATIVE) 12/19/21 14:49 Urine Nitrite Negative (NEGATIVE) 12/19/21 14:49 Urine Bilirubin Negative (NEGATIVE) 12/19/21 14:49 Urine Urobilinogen Normal (NORMAL) 12/19/21 14:49 Ur Leukocyte Esterase 3+ (NEGATIVE) 12/19/21 14:49 Urine RBC 30-50 /HPF (0-3) A 12/19/21 14:49 Urine WBC Tntc /HPF (0-5) A 12/19/21 14:49 Ur Squamous Epith Cells Rare /HPF (NEGATIVE) 12/19/21 14:49 Urine Bacteria 3+ /HPF (NEGATIVE) 12/19/21 14:49 Urine Yeast Many /HPF (NEGATIVE) 12/19/21 14:49 Ur Culture Indicated? Yes/culture set up 12/19/21 14:49 SARS CoV-2 RNA Rapid CLARA Negative (NEGATIVE) 12/19/21 20:20 Plan (1) Acute UTI: Status: Acute Plan: Continue IV antibiotics. (2) Osteomyelitis of foot, left, acute: Status: Acute Plan: IV antibiotics. Check MRI left heel to confirm Osteomyelitis. Add daily ESR's and CRP's. Will add [place] 7.5 mg for pain control. Will watch and see if Levaquin will bring downher WBC count. If not will restart Meropenem. (3) Leukocytosis: Status: Acute Plan: cont. abx. (4) DM2 (diabetes mellitus, type 2): Status: Acute Plan: Sliding scale reg. insulin. (5) Hypothyroidism: Status: Acute (6) HTN (hypertension): Status: Acute (7) Anemia, chronic disease: Status: Acute Plan: Monitor Hb. (8) CAP (community acquired pneumonia): Status: Acute Plan: IV antibiotics. BC x2 neg at day 2. Check CXR in am. (9) Ulcer of left heel: Status: Acute (10) Sacral decubitus ulcer, stage II: Status: Acute (11) UTI (urinary tract infection): Status: Acute Plan: Pt is on abx.
[2021-12-23] MEDS: NovoLIN R (or HumuLIN R) SUBCUT PRN (12:03)
[2021-12-23 12:09] VITALS: BP 123/56
[2021-12-23] MEDS ORDERED: MERREM VIAL ONE (14:06)
[2021-12-23] MEDS ORDERED: NS 100 ML IV + SPIKE MINIBAG* 100 ML IV ONE (14:07)
--- NOTE | 2022-01-12 13:48 | PCM.DCPLAN ---
DISCHARGE SUMMARY Admission Date Date of Admission: 12/19/21 Discharge Date Discharge Date: 12/23/21 Admission Diagnoses (1) Acute UTI: Status: Acute (2) Osteomyelitis of foot, left, acute: Status: Acute (3) Leukocytosis: Status: Acute (4) DM2 (diabetes mellitus, type 2): Status: Acute (5) Hypothyroidism: Status: Acute (6) HTN (hypertension): Status: Acute (7) Anemia, chronic disease: Status: Acute (8) CAP (community acquired pneumonia): Status: Acute (9) Ulcer of left heel: Status: Acute (10) Sacral decubitus ulcer, stage II: Status: Acute (11) UTI (urinary tract infection): Status: Acute (12) Altered mental status: Status: Acute Discharge Diagnoses Discharge Diagnosis: 1. Urosepsis 2. Left heel stage 3 ulcer 3. Left calcaneal osteomyelitis 4. CAP 5. AMS resolved 6. DM2 7. HTN 8. Hypothyroidism 9. Sacral Decubitus stage 2 10. Anemia of chronic disease Discharge Medications Discharge Medications: Home Medication List meropenem 1 g IV Q8H #126 ea 12/23/21 [Rx] Prescriptions: meropenem [facility] Vital Signs: Temperature 97.6 F Pulse Rate [Left Brachial] 80 Pulse Rate 92 Respiratory Rate 20 Blood Pressure [Left Arm] 151/64 Blood Pressure 123/56 O2 Sat by Pulse Oximetry 95 Latest Lab Results: Laboratory Last Values WBC 15.3 X10^3/uL (3.6-10.0) H 12/23/21 06:05 RBC 3.29 X10^6/uL (3.5-5.4) L 12/23/21 06:05 Hgb 8.1 g/dL (12.0-16.0) L 12/23/21 06:05 Hct 24.9 % (36.0-47.0) L 12/23/21 06:05 MCV 75.9 fL (80.0-100.0) L 12/23/21 06:05 MCH 24.6 pg (27.0-34.0) L 12/23/21 06:05 MCHC 32.5 g/dL (33.0-35.0) L 12/23/21 06:05 RDW 20.6 % (11.6-16.5) H 12/23/21 06:05 Plt Count 573 X10^3/uL (150.0-450.0) H 12/23/21 06:05 Plt Count Comment Increased (ADEQUATE) A 12/23/21 06:05 MPV 7.4 fL (7.4-11.0) 12/23/21 06:05 Neut % (Auto) 74.5 % (42.0-75.0) 12/23/21 06:05 Lymph % (Auto) 17.3 % (21.0-51.0) L 12/23/21 06:05 [place] % (Auto) 4.1 % (0.0-13.0) 12/23/21 06:05 Eos % (Auto) 3.7 % (0.9-2.9) H 12/23/21 06:05 Baso % (Auto) 0.4 % (0.2-1.0) 12/23/21 06:05 Neut # (Auto) 11.4 x10^3/uL (2.2-4.8) H 12/23/21 06:05 Lymph # (Auto) 2.6 X10^3/uL (1.3-2.9) 12/23/21 06:05 [place] # (Auto) 0.6 x10^3/uL (0.3-0.8) 12/23/21 06:05 Eos # (Auto) 0.6 x10^3/uL (0.0-0.2) H 12/23/21 06:05 Baso # (Auto) 0.1 X10^3/uL (0.0-0.1) 12/23/21 06:05 Absolute Nucleated RBC 0.0 /100WBC 12/23/21 06:05 Total Counted Cancelled 12/21/21 05:00 Neutrophils % (Manual) Cancelled 12/21/21 05:00 Band Neutrophils % Cancelled 12/21/21 05:00 Lymphocytes % (Manual) Cancelled 12/21/21 05:00 Monocytes % (Manual) Cancelled 12/21/21 05:00 Eosinophils % (Manual) Cancelled 12/21/21 05:00 Basophils % (Manual) Cancelled 12/21/21 05:00 Metamyelocytes % Cancelled 12/21/21 05:00 Myelocytes % Cancelled 12/21/21 05:00 Promyelocytes % Cancelled 12/21/21 05:00 Nucleated RBCs Cancelled 12/21/21 05:00 Atypical Lymphocytes Cancelled 12/21/21 05:00 Blast Cells Cancelled 12/21/21 05:00 Smudge Cells Cancelled 12/21/21 05:00 Toxic Granulation Cancelled 12/21/21 05:00 Dohle Bodies Cancelled 12/21/21 05:00 Krystian Rods Cancelled 12/21/21 05:00 Plt Clumps, EDTA Cancelled 12/21/21 05:00 Giant Platelets Cancelled 12/21/21 05:00 Plt Morphology Comment Normal (NORMAL) 12/23/21 06:05 RBC Morphology Abnormal (NORMAL) A 12/23/21 06:05 Dimorphic RBCs Cancelled 12/21/21 05:00 Polychromasia Cancelled 12/21/21 05:00 Hypochromasia Slight A 12/23/21 06:05 Poikilocytosis Cancelled 12/21/21 05:00 Basophilic Stippling Cancelled 12/21/21 05:00 Anisocytosis 1+ A 12/23/21 06:05 Microcytosis Slight A 12/23/21 06:05 Macrocytosis Cancelled 12/21/21 05:00 Spherocytes Cancelled 12/21/21 05:00 Pappenheimer Bodies Cancelled 12/21/21 05:00 Sickle Cells Cancelled 12/21/21 05:00 Target Cells Cancelled 12/21/21 05:00 Tear Drop Cells Cancelled 12/21/21 05:00 Ovalocytes Cancelled 12/21/21 05:00 Stomatocytes Cancelled 12/21/21 05:00 Helmet Cells Cancelled 12/21/21 05:00 [place] Bodies Cancelled 12/21/21 05:00 Barry Rings Cancelled 12/21/21 05:00 Preet Cells Cancelled 12/21/21 05:00 Crenated Cell Cancelled 12/21/21 05:00 Acanthocytes (Spur) Cancelled 12/21/21 05:00 Rouleaux Cancelled 12/21/21 05:00 Schistocytes Cancelled 12/21/21 05:00 ESR 126 MM/HOUR (0-20) H 12/20/21 05:40 PT 15.3 SECONDS (11.8-14.3) 12/20/21 05:40 INR Target Range - 12/20/21 05:40 INR 1.27 (0.8-1.3) 12/20/21 05:40 APTT 48.8 SECONDS (22.9-36.5) H 12/20/21 05:40 PTT Comment - 12/20/21 05:40 Sodium 140 mmol/L (136-145) 12/23/21 06:05 Corrected Sodium 141 mmol/L (136-145) 12/23/21 06:05 Potassium 3.1 mmol/L (3.5-5.1) L 12/23/21 06:05 Chloride 101 mmol/L (98-107) 12/23/21 06:05 Carbon Dioxide 30.2 mmol/L (21-32) 12/23/21 06:05 BUN 12 mg/dL (7-18) 12/23/21 06:05 Creatinine 0.92 mg/dL (0.55-1.02) 12/23/21 06:05 Est GFR (MDRD) Af Amer > 60 (>60) 12/23/21 06:05 Est GFR (MDRD) Non-Af > 60 (>60) 12/23/21 06:05 Glucose 130 mg/dL (65-99) H 12/23/21 06:05 POC Glucose (mg/dL) 254 mg/dL (65-99) H 12/23/21 11:28 Lactic Acid 0.8 mmol/L (0.4-2.0) 12/19/21 14:30 Calcium 8.7 mg/dL (8.5-10.1) 12/23/21 06:05 Corrected Calcium 10.4 mg/dL (8.5-10.1) H 12/23/21 06:05 Magnesium 2.1 mg/dL (1.7-2.9) 12/22/21 06:10 Total Bilirubin 0.30 mg/dL (0.2-1.0) 12/23/21 06:05 AST 31 Units/L (15-37) 12/23/21 06:05 ALT 25 Units/L (12-78) 12/23/21 06:05 Alkaline Phosphatase 61 Units/L (46-116) 12/23/21 06:05 Creatine Kinase 20 Units/L (26-192) L 12/20/21 05:40 CK-MB (CK-2) < 1.0 ng/mL (0-4.0) 12/20/21 05:40 CK/CKMB % Calc 5.0 % (<4) 12/20/21 05:40 Troponin I High Sens 12.5 ng/L (4.0-60.0) 12/20/21 05:40 C-Reactive Protein 109.00 mg/L (0-3.0) H 12/21/21 05:55 Total Protein 6.3 g/dL (6.4-8.2) L 12/23/21 06:05 Albumin 1.9 g/dL (3.4-5.0) L 12/23/21 06:05 Globulin 4.4 g/dL (2.5-4.5) 12/23/21 06:05 Albumin/Globulin Ratio 0.4 Ratio (1.1-2.1) L 12/23/21 06:05 Specimen Type Catherized urine 12/19/21 14:49 Urine Color Yellow (YELLOW) 12/19/21 14:49 Urine Appearance Cloudy (CLEAR) 12/19/21 14:49 Urine pH 6.0 (5.0 - 8.0) 12/19/21 14:49 Ur Specific [place] 1.010 (1.000-1.030) 12/19/21 14:49 Urine Protein 2+ (NEGATIVE) 12/19/21 14:49 Urine Glucose (UA) Negative (NEGATIVE) 12/19/21 14:49 Urine Ketones Negative (NEGATIVE) 12/19/21 14:49 Urine Occult Blood 4+ (NEGATIVE) 12/19/21 14:49 Urine Nitrite Negative (NEGATIVE) 12/19/21 14:49 Urine Bilirubin Negative (NEGATIVE) 12/19/21 14:49 Urine Urobilinogen Normal (NORMAL) 12/19/21 14:49 Ur Leukocyte Esterase 3+ (NEGATIVE) 12/19/21 14:49 Urine RBC 30-50 /HPF (0-3) A 12/19/21 14:49 Urine WBC Tntc /HPF (0-5) A 12/19/21 14:49 Ur Squamous Epith Cells Rare /HPF (NEGATIVE) 12/19/21 14:49 Urine Bacteria 3+ /HPF (NEGATIVE) 12/19/21 14:49 Urine Yeast Many /HPF (NEGATIVE) 12/19/21 14:49 Ur Culture Indicated? Yes/culture set up 12/19/21 14:49 SARS CoV-2 RNA Rapid CLARA Negative (NEGATIVE) 12/19/21 20:20 Hospital Course: This patient presented to the ED on 12/19/21 for AMS. ED VARNER revealed urosepsis and CAP. She was started on abx and admitted for inpatient care. WBC count on admission was 26,000. The following day she was less confesed and the WBC count dropped to 20,000. She reported foot pain where her pain meds were increased. Gen Surgeon Dr. Wong was consulted for debridment. She was on Levaquin whic was chaned to Meropenem where she had better improvent of coverage regarding her 3 infections. MRI was done which showed a small amount of Osteomyelitis in her left calcaneus. Since she still had a picc line from before we will be treating her as an outpatinet for 6 weeks for osteomyelitis. This will cover her UTI, CAP and her sacral stage 2 decubitus. Home Health Care will be consulted to treat the heel and sacral decubitus. She was dicharged home instable condition. Instructions Instructions: Wound Infection PICC Insertion, Care After Antibiotic Medicine, Adult Preventing Pressure Injuries Urinary Tract Infection, Adult, [id number] How to Change Your Wound Dressing Hypertension, Adult, [id number] Forms: Excuse From Work or School Precautions for COVID19 [facility] Social Distancing
== END 2021-12-23 15:25 | disposition home health service (06) ==
LOC: U 13:52 → ER 13:52 → U 20:46 → MED/SURG 12-20 14:52
PROVIDERS: ADMIT Internal Medicine; ATTEND Family Medicine
DX: J18.9 Pneumonia, unspecified organism; D68.9 Coagulation defect, unspecified; N39.0 Urinary tract infection, site not specified; B37.9 Candidiasis, unspecified; D72.829 Elevated white blood cell count, unspecified; E86.0 Dehydration; D64.9 Anemia, unspecified; E03.9 Hypothyroidism, unspecified; I10 Essential (primary) hypertension; L89.152 Pressure ulcer of sacral region, stage 2; L89.623 Pressure ulcer of left heel, stage 3; R41.82 Altered mental status, unspecified; Z74.01 Bed confinement status; I25.10 Atherosclerotic heart disease of native coronary artery without angina pectoris; M86.172 Other acute osteomyelitis, left ankle and foot; Z20.822 Contact with and (suspected) exposure to COVID-19

== ENCOUNTER 2022-02-20 22:18 | Observation (INO) ==
[2022-02-20] MEDS ORDERED: NS 500 ML IV 500 ML IV ONE ×2 (22:42→22:52)
--- NOTE | 2022-02-20 22:46 | DR.GENAD ---
HPI Time Seen Time Seen by Provider: 02/20/22 22:36 Complaint/Symptoms Chief Complaint Doctors Comments: 86 y/o female brought in by EMS for evaluation. Family called 911, stated the pt's pulse ox was in the 80's. On EMS arrival, they found her to be in no distress, with a pulse ox in the mid to uppe r 90's. PT denies shortness of breath, chest pain, fever, chills or swelling. Admits that she has had a "pesky" cough. Has been eating well, denies bowel or bladder problems. Pt is currently on antibiotics for UTI (cipro, sulfa). COVID-19 Coronavirus risk:travel/contact w/high risk person: No Has patient experienced Coronavirus symptoms: No Nurses notes reviewed Nurses Notes Review: Yes Source History Provided: Patient and EMS Mode of Arrival Mode of Arrival: EMS PMH PMH Past Medical History: CHF, Coronary Artery Disease, Diabetes, Dyslipidemia, Migraines, Hypertension and Hypothyroidism Past Surgical History: Yes Surgical History: Cholecystectomy and Hysterectomy Family History Family Medical History: Cancer and Hypertension Social History Do you use any recreational Drugs:: No ROS Review of Systems Constitutional: negative Chills and Fatigue Eyes: No Symptoms Reported ENTM: No Symptoms Reported Respiratoy: Non-Productive Cough; negative Short of Breath Cardiovascular: No Symptoms Reported Gastrointestinal/Abdominal: No Symptoms Reported Genitourinary: No Symptoms Reported Neurological: No Symptoms Reported Musculoskeletal: No Symptoms Reported Integumentary: No Symptoms Reported Hematologic/Lymphatic: No Symptoms Reported Psychiatric: No Symptoms Reported All Other Systems: Reviewed and Negative PE Vital Signs Vitals: Temperature 97.9 F Pulse Rate 77 Respiratory Rate 18 Blood Pressure [Left Arm] 151/64 Blood Pressure 119/53 O2 Sat by Pulse Oximetry 97 General Limitations: No Limitations General Appearance: Alert and In No Apparent Distress Head Head Exam: Normal Inspection Eyes Eye exam: Normal Appearance, PERRL and EOMI ENT ENT Exam: Normal Exam and Mucous Membranes Moist Throat Exam: Normal Inspection Neck Neck Exam: Normal Inspection and Full ROM Chest Chest Inspection: Normal Inspection Respiratory Respiratory Exam: Normal Lung Sounds Bilat; negative Accessory Muscle Use and Respiratory Distress Respiratory Exam: Bilateral: Clear to Auscultation Cardiovascular Cardiovascular Exam: Regular Rate, Normal Rhythm and Normal Heart Sounds Abdominal Exam Abdominal Exam: Normal Bowel Sounds and Soft; negative Tenderness Extremities Extremities Exam: negative Edema Neurologic Neurological Exam: Alert and CN II-XII Intact; negative Motor Sensory Deficit Psychiatric Psychiatric Exam: Normal Affect Skin Skin Exam: Warm, Dry and Other (+ dressing to left foot (h/o decubitus ulcer).) MDM Differential Diagnosis Differential Diagnosis: hypoxia, bronchitis, pneumonia, CAD. COURSE Treatment Treatment: 86 y/o female brought in for evaluation. Family had a low pulse ox at home, but was better with EMS, and here in the ER . W/u initiated. 0111 - CXR acceptable. CBC shows mild elevation of WBCs, 11K, mild anemia, Hgb 10.4. CMP with degree of hyponatremia, Na 130, and elevated Cr, 2.6. Last Cr done here few days ago was lower at 1.5. Pt with probable degree of dehydration. U/A with TNTC WBCs/RBCs. Pt currently on cipro/sulfa antibiotics. Given IV Rocephin, also gave IV NS. 0138 - discussed with her attending, Dr Marquez. Will admit for IV antibiotic, as well as IV hydration. ROR Labs Reviewed Laboratory Results Reviewed?: Yes Result Diagrams: 02/20/22 23:00 02/20/22 23:00 Laboratory: WBC 11.2 X10^3/uL (3.6-10.0) H 02/20/22 23:00 RBC 4.10 X10^6/uL (3.5-5.4) 02/20/22 23:00 Hgb 10.4 g/dL (12.0-16.0) L 02/20/22 23:00 Hct 32.3 % (36.0-47.0) L 02/20/22 23:00 MCV 78.8 fL (80.0-100.0) L 02/20/22 23:00 MCH 25.3 pg (27.0-34.0) L 02/20/22 23:00 MCHC 32.0 g/dL (33.0-35.0) L 02/20/22 23:00 RDW 23.2 % (11.6-16.5) H 02/20/22 23:00 Plt Count 357 X10^3/uL (150.0-450.0) 02/20/22 23:00 Plt Count Comment Adequate (ADEQUATE) 02/20/22 23:00 MPV 7.9 fL (7.4-11.0) 02/20/22 23:00 Neut % (Auto) 72.3 % (42.0-75.0) 02/20/22 23:00 Lymph % (Auto) 15.9 % (21.0-51.0) L 02/20/22 23:00 [place] % (Auto) 9.3 % (0.0-13.0) 02/20/22 23:00 Eos % (Auto) 1.4 % (0.9-2.9) 02/20/22 23:00 Baso % (Auto) 1.1 % (0.2-1.0) H 02/20/22 23:00 Neut # (Auto) 8.1 x10^3/uL (2.2-4.8) H 02/20/22 23:00 Lymph # (Auto) 1.8 X10^3/uL (1.3-2.9) 02/20/22 23:00 [place] # (Auto) 1.0 x10^3/uL (0.3-0.8) H 02/20/22 23:00 Eos # (Auto) 0.2 x10^3/uL (0.0-0.2) 02/20/22 23:00 Baso # (Auto) 0.1 X10^3/uL (0.0-0.1) 02/20/22 23:00 Absolute Nucleated RBC 0.0 /100WBC 02/20/22 23:00 Plt Morphology Comment Normal (NORMAL) 02/20/22 23:00 RBC Morphology Abnormal (NORMAL) A 02/20/22 23:00 Anisocytosis 2+ A 02/20/22 23:00 Sodium 130 mmol/L (136-145) L 02/20/22 23:00 Corrected Sodium 130 mmol/L (136-145) L 02/20/22 23:00 Potassium 5.4 mmol/L (3.5-5.1) H 02/20/22 23:00 Chloride 97 mmol/L (98-107) L 02/20/22 23:00 Carbon Dioxide 24.5 mmol/L (21-32) 02/20/22 23:00 BUN 34 mg/dL (7-18) H 02/20/22 23:00 Creatinine 2.62 mg/dL (0.55-1.02) H 02/20/22 23:00 Est GFR (MDRD) Af Amer 22 (>60) L 02/20/22 23:00 Est GFR (MDRD) Non-Af 18 (>60) L 02/20/22 23:00 Glucose 119 mg/dL (65-99) H 02/20/22 23:00 Calcium 9.0 mg/dL (8.5-10.1) 02/20/22 23:00 Corrected Calcium 9.9 mg/dL (8.5-10.1) 02/20/22 23:00 Total Bilirubin 0.20 mg/dL (0.2-1.0) 02/20/22 23:00 AST 25 Units/L (15-37) 02/20/22 23:00 ALT 22 Units/L (12-78) 02/20/22 23:00 Alkaline Phosphatase 116 Units/L (46-116) 02/20/22 23:00 Creatine Kinase 202 Units/L (26-192) H 02/20/22 23:00 CK-MB (CK-2) 1.4 ng/mL (0-4.0) 02/20/22 23:00 CK/CKMB % Calc 0.7 % (<4) 02/20/22 23:00 Troponin I High Sens 9.8 ng/L (4.0-60.0) 02/20/22 23:00 Total Protein 7.1 g/dL (6.4-8.2) 02/20/22 23:00 Albumin 2.9 g/dL (3.4-5.0) L 02/20/22 23:00 Globulin 4.2 g/dL (2.5-4.5) 02/20/22 23:00 Albumin/Globulin Ratio 0.7 Ratio (1.1-2.1) L 02/20/22 23:00 Specimen Type Catherized urine 02/20/22 23:18 Urine Color Yellow (YELLOW) 02/20/22 23:18 Urine Appearance Cloudy (CLEAR) 02/20/22 23:18 Urine pH 5.0 (5.0 - 8.0) 02/20/22 23:18 Ur Specific [place] 1.020 (1.000-1.030) 02/20/22 23:18 Urine Protein 2+ (NEGATIVE) 02/20/22 23:18 Urine Glucose (UA) Negative (NEGATIVE) 02/20/22 23:18 Urine Ketones Negative (NEGATIVE) 02/20/22 23:18 Urine Blood 4+ (NEGATIVE) 02/20/22 23:18 Urine Nitrite Negative (NEGATIVE) 02/20/22 23:18 Urine Bilirubin Negative (NEGATIVE) 02/20/22 23:18 Urine Urobilinogen Normal (NORMAL) 02/20/22 23:18 Ur Leukocyte Esterase 3+ (NEGATIVE) 02/20/22 23:18 Urine RBC Tntc /HPF (0-3) A 02/20/22 23:18 Urine WBC Tntc /HPF (0-5) A 02/20/22 23:18 Ur Squamous Epith Cells Moderate /HPF (NEGATIVE) 02/20/22 23:18 Urine Bacteria 2+ /HPF (NEGATIVE) 02/20/22 23:18 Urine Yeast Moderate /HPF (NEGATIVE) 02/20/22 23:18 Ur Culture Indicated? Yes/culture set up 02/20/22 23:18 Opioid Opioid Risk Tool Age (Hugo box if 16-45): No History of Preadolescent Sexual Abuse: No Total: 0 Total Score Risk Category: Low Risk Copyright: Jhonny BEE predicting aberrant behaviors Diagnosis Discharge Problem: Complicated UTI (urinary tract infection), Volume depletion
--- NOTE | 2022-02-20 23:07 | RAD ---
STUDY: FRONTAL VIEW CHESTCOMPARISON: 12/22/2021HISTORY: PT FAMILY STATED THAT PT O2 SAT WAS LOW. ON ARRIVAL PT 02 SAT WAS 96 ON RA. PT FAMILY STATED THAT THEY STILL WANTED PT TO BE TRANSFERRED TO THE HOSPITALFINDINGS:No focal consolidation is seen.The heart size is within normal limits.The mediastinum is unremarkable.There is no evidence of pleural effusion or gross pneumothorax.The trachea is midline.IMPRESSION:1. No focal consolidation is seen.2. The heart size is normal.Electronically signed by: Hong Gifford (Feb 20, 2022 23:06:28)
[2022-02-20 23:08] LABS: BASOPHILS # (AUTO) 0.1 X10^3/uL (0.0-0.1); BASOPHILS % (AUTO) 1.1 % (0.2-1.0); EOSINOPHILS # (AUTO) 0.2 x10^3/uL (0.0-0.2); EOSINOPHILS % (AUTO) 1.4 % (0.9-2.9); HEMATOCRIT 32.3 % (36.0-47.0); HEMOGLOBIN 10.4 g/dL (12.0-16.0); LYMPHOCYTES # (AUTO) 1.8 X10^3/uL (1.3-2.9); LYMPHOCYTES % (AUTO) 15.9 % (21.0-51.0); MEAN CORPUSCULAR HEMOGLOBIN 25.3 pg (27.0-34.0); MEAN CORPUSCULAR VOLUME 78.8 fL (80.0-100.0); MEAN PLATELET VOLUME 7.9 fL (7.4-11.0); MONOCYTES % (AUTO) 9.3 % (0.0-13.0); NEUTROPHILS # (AUTO) 8.1 x10^3/uL (2.2-4.8); NEUTROPHILS % (AUTO) 72.3 % (42.0-75.0); RED CELL DISTRIBUTION WIDTH 23.2 % (11.6-16.5); WHITE BLOOD COUNT 11.2 X10^3/uL (3.6-10.0)
[2022-02-20 23:23] LABS: ANISOCYTOSIS 2+; PLATELET MORPHOLOGY COMMENT NORMAL (NORMAL)
[2022-02-20 23:34] LABS: BILIRUBIN,URINE NEGATIVE (NEGATIVE); BLOOD/HEMOGLOBIN,URINE 4+ (NEGATIVE); GLUCOSE, URINE NEGATIVE (NEGATIVE); KETONES,URINE NEGATIVE (NEGATIVE); LEUKOCYTE ESTERASE ,URINE 3+ (NEGATIVE); NITRITES,URINE NEGATIVE (NEGATIVE); PROTEIN,URINE 2+ (NEGATIVE); UROBILINOGEN,URINE NORMAL (NORMAL)
[2022-02-20 23:38] LABS: ALBUMIN 2.9 g/dL (3.4-5.0); CARBON DIOXIDE 24.5 mmol/L (21-32); CKMB % 0.7 % (<4); COR CA(FOR HYPOALB) 9.9 mg/dL (8.5-10.1); CREATINE KINASE MB 1.4 ng/mL (0-4.0); CREATININE 2.62 mg/dL (0.55-1.02); TOTAL PROTEIN 7.1 g/dL (6.4-8.2)
[2022-02-20 23:56] LABS: COLOR,URINE YELLOW (YELLOW)
[2022-02-20 23:57] LABS: APPEARANCE,URINE CLOUDY (CLEAR); BACTERIA,URINE 2+ /HPF (NEGATIVE); RBC,URINE TNTC /HPF (0-3); SQUAMOUS EPITHELIAL CELL,UR MODERATE /HPF (NEGATIVE); YEAST,URINE MODERATE /HPF (NEGATIVE)
[2022-02-21] MEDS ORDERED: ROCEPHIN 1 GRAM IV PREMIX 1 G/50 ML IV.SOLN. IV ONE ×2 (00:15→00:29)
[2022-02-21] MEDS ORDERED: PROVENTIL NEB TX 0.083% 2.5MG/ 3ML IN PRN (03:25)
[2022-02-21] MEDS ORDERED: SEROquel TAB 25 mg PO SCH (04:00)
[2022-02-21 05:17] LABS: BASOPHILS # (AUTO) 0.1 X10^3/uL (0.0-0.1); BASOPHILS % (AUTO) 1.2 % (0.2-1.0); EOSINOPHILS # (AUTO) 0.3 x10^3/uL (0.0-0.2); EOSINOPHILS % (AUTO) 2.8 % (0.9-2.9); HEMOGLOBIN 10.2 g/dL (12.0-16.0); LYMPHOCYTES % (AUTO) 19.6 % (21.0-51.0); MEAN CORPUSCULAR HEMOGLOBIN 25.2 pg (27.0-34.0); MEAN CORPUSCULAR HGB CONC 31.8 g/dL (33.0-35.0); MEAN PLATELET VOLUME 8.6 fL (7.4-11.0); MONOCYTES # (AUTO) 1.1 x10^3/uL (0.3-0.8); MONOCYTES % (AUTO) 10.5 % (0.0-13.0); NEUTROPHILS # (AUTO) 6.8 x10^3/uL (2.2-4.8); NEUTROPHILS % (AUTO) 65.9 % (42.0-75.0); RED BLOOD COUNT 4.05 X10^6/uL (3.5-5.4); RED CELL DISTRIBUTION WIDTH 22.4 % (11.6-16.5); WHITE BLOOD COUNT 10.3 X10^3/uL (3.6-10.0)
[2022-02-21 05:29] LABS: ALANINE AMINOTRANSFERASE 18 Units/L (12-78); ALBUMIN 2.9 g/dL (3.4-5.0); ALKALINE PHOSPHATASE 113 Units/L (46-116); ASPARTATE AMINO TRANSFERASE 22 Units/L (15-37); BLOOD UREA NITROGEN 33 mg/dL (7-18); CALCIUM 9.1 mg/dL (8.5-10.1); CARBON DIOXIDE 23.9 mmol/L (21-32); CHLORIDE 98 mmol/L (98-107); CREATININE 2.43 mg/dL (0.55-1.02); SODIUM 130 mmol/L (136-145); TOTAL PROTEIN 7.1 g/dL (6.4-8.2); eGFR NON BLACK RACES 20 (>60)
[2022-02-21 05:47] VITALS: BMI 27.1
[2022-02-21 05:55] LABS: ANISOCYTOSIS 2+; PLATELET MORPHOLOGY COMMENT NORMAL (NORMAL)
[2022-02-21 05:56] LABS: HYPOCHROMASIA SLIGHT; MICROCYTOSIS SLIGHT
[2022-02-21] MEDS: ROCEPHIN VIAL 1 GRAM 1 G in NS 100 ML IV 100 ML IV SCH (06:04)
[2022-02-21] MEDS: NS 1,000 ML IV 1,000 ML IV SCH ×2 (06:22→18:47)
[2022-02-21] MEDS: FLOMAX PO SCH ×2 (06:22→20:52)
[2022-02-21] MEDS: NEURONTIN TAB 600 MG PO SCH ×3 (06:22→21:37)
[2022-02-21] MEDS: SYNTHROID 100 mcg TAB PO SCH (09:31)
[2022-02-21] MEDS: FERROUS GLUCONATE PO SCH (09:31)
[2022-02-21] MEDS: LINZESS PO SCH (09:31)
[2022-02-21] MEDS: PROTONIX TAB 40 MG PO SCH ×2 (09:32→20:51)
[2022-02-21] MEDS: ZYLOPRIM PO SCH (09:32)
[2022-02-21] MEDS: DIFLUCAN PO SCH (11:02)
[2022-02-21] MEDS: LOVENOX INJ 30 MG SYR SC SCH (11:02)
--- NOTE | 2022-02-21 12:23 | DR.H&P ---
H&P History & Physical for Day of: H&P Date: 02/21/22 Chief Complaint Chief Complaint: Hypoxia Allergies Allergies Allergy/AdvReac Type Severity Reaction Status Date / Time codeine Allergy Verified 12/19/21 13:53 History of Present Illness History of Present Illness: This is a pleasant 86-year-old white female who presented to the emergency department via EMS after the family called 911 with reports of having an O2 sat in the 80s. On arrival the EMS found the patient to be in no distress. Pulse ox was checked and her O2 sat was in the upper 90s. Patient denies shortness of breath chest, chest pain, fever, chills or swelling. She does report that she has had a cough. She has no change in appetite and no bowel or bladder problems at this time to report. Current workup last night urinalysis showed that the patient has too numerous to count WBCs. She has been treated and is currently on Cipro and Bactrim as an outpatient for treatment of UTI. She has also recently finished up Diflucan for yeast that was found in the urine last week. She is also found to be dehydrated with a slightly elevated potassium and low sodium at 130. We decided to go ahead and admit her for observation and give her IV fluid IV Rocephin for her UTI. Follow-up urine culture and continue IV hydration at this time. Past Medical History Past Medical History: CHF, Coronary Artery Disease, Diabetes, Dyslipidemia, Migr aines, Hypertension and Hypothyroidism Past Surgical History Surgical History: Cholecystectomy and Hysterectomy Family History Family Medical History: Diabetes Mellitus and Hypertension Social History Does patient currently use any type of tobacco product: No Have you used tobacco products in the last 12 months: No Type of Tobacco Use: Cigarettes Alcohol Use: None Drug Use: None Medications Home Medications: codeine Allergy (Verified 12/19/21 13:53) CONTINUE taking the following medications albuterol sulfate 2.5 mg INHALATION TID PRN 02/21/22 [History] atorvastatin [Lipitor] 10 mg PO HS 02/21/22 [History] cefuroxime axetil 500 mg PO BID 02/21/22 [History] ciprofloxacin HCl [Cipro] 500 mg PO BID 02/21/22 [History] furosemide [Lasix] 40 mg PO BID PRN 02/21/22 [History] gabapentin [Neurontin] 600 mg PO TID 02/21/22 [History] gentamicin 1 applic TOPICAL BID 02/21/22 [History] hydrocodone-acetaminophen 1 tab PO PRN PRN 02/21/22 [History] levothyroxine 100 mcg PO DAILY 02/21/22 [History] linaclotide [Linzess] 145 mcg PO DAILY 02/21/22 [History] quetiapine [Seroquel] 50 mg PO HS 02/21/22 [History] sulfamethoxazole-trimethoprim [Bactrim DS] 800 tab PO BID 02/21/22 [History] Labs Result Diagrams: 02/21/22 04:16 02/21/22 04:16 Labs: Laboratory WBC 10.3 X10^3/uL (3.6-10.0) H 02/21/22 04:16 RBC 4.05 X10^6/uL (3.5-5.4) 02/21/22 04:16 Hgb 10.2 g/dL (12.0-16.0) L 02/21/22 04:16 Hct 32.0 % (36.0-47.0) L 02/21/22 04:16 MCV 79.0 fL (80.0-100.0) L 02/21/22 04:16 MCH 25.2 pg (27.0-34.0) L 02/21/22 04:16 MCHC 31.8 g/dL (33.0-35.0) L 02/21/22 04:16 RDW 22.4 % (11.6-16.5) H 02/21/22 04:16 Plt Count 352 X10^3/uL (150.0-450.0) 02/21/22 04:16 Plt Count Comment Adequate (ADEQUATE) 02/21/22 04:16 MPV 8.6 fL (7.4-11.0) 02/21/22 04:16 Neut % (Auto) 65.9 % (42.0-75.0) 02/21/22 04:16 Lymph % (Auto) 19.6 % (21.0-51.0) L 02/21/22 04:16 [place] % (Auto) 10.5 % (0.0-13.0) 02/21/22 04:16 Eos % (Auto) 2.8 % (0.9-2.9) 02/21/22 04:16 Baso % (Auto) 1.2 % (0.2-1.0) H 02/21/22 04:16 Neut # (Auto) 6.8 x10^3/uL (2.2-4.8) H 02/21/22 04:16 Lymph # (Auto) 2.0 X10^3/uL (1.3-2.9) 02/21/22 04:16 [place] # (Auto) 1.1 x10^3/uL (0.3-0.8) H 02/21/22 04:16 Eos # (Auto) 0.3 x10^3/uL (0.0-0.2) H 02/21/22 04:16 Baso # (Auto) 0.1 X10^3/uL (0.0-0.1) 02/21/22 04:16 Absolute Nucleated RBC 0.0 /100WBC 02/21/22 04:16 Plt Morphology Comment Normal (NORMAL) 02/21/22 04:16 RBC Morphology Abnormal (NORMAL) A 02/21/22 04:16 Hypochromasia Slight A 02/21/22 04:16 Anisocytosis 2+ A 02/21/22 04:16 Microcytosis Slight A 02/21/22 04:16 Sodium 130 mmol/L (136-145) L 02/21/22 04:16 Corrected Sodium TNP 02/21/22 04:16 Potassium 5.1 mmol/L (3.5-5.1) 02/21/22 04:16 Chloride 98 mmol/L (98-107) 02/21/22 04:16 Carbon Dioxide 23.9 mmol/L (21-32) 02/21/22 04:16 BUN 33 mg/dL (7-18) H 02/21/22 04:16 Creatinine 2.43 mg/dL (0.55-1.02) H 02/21/22 04:16 Est GFR (MDRD) Af Amer 24 (>60) L 02/21/22 04:16 Est GFR (MDRD) Non-Af 20 (>60) L 02/21/22 04:16 Glucose 85 mg/dL (65-99) 02/21/22 04:16 Calcium 9.1 mg/dL (8.5-10.1) 02/21/22 04:16 Corrected Calcium 10.0 mg/dL (8.5-10.1) 02/21/22 04:16 Total Bilirubin 0.20 mg/dL (0.2-1.0) 02/21/22 04:16 AST 22 Units/L (15-37) 02/21/22 04:16 ALT 18 Units/L (12-78) 02/21/22 04:16 Alkaline Phosphatase 113 Units/L (46-116) 02/21/22 04:16 Creatine Kinase 202 Units/L (26-192) H 02/20/22 23:00 CK-MB (CK-2) 1.4 ng/mL (0-4.0) 02/20/22 23:00 CK/CKMB % Calc 0.7 % (<4) 02/20/22 23:00 Troponin I High Sens 9.8 ng/L (4.0-60.0) 02/20/22 23:00 Total Protein 7.1 g/dL (6.4-8.2) 02/21/22 04:16 Albumin 2.9 g/dL (3.4-5.0) L 02/21/22 04:16 Globulin 4.2 g/dL (2.5-4.5) 02/21/22 04:16 Albumin/Globulin Ratio 0.7 Ratio (1.1-2.1) L 02/21/22 04:16 Specimen Type Catherized urine 02/20/22 23:18 Urine Color Yellow (YELLOW) 02/20/22 23:18 Urine Appearance Cloudy (CLEAR) 02/20/22 23:18 Urine pH 5.0 (5.0 - 8.0) 02/20/22 23:18 Ur Specific [place] 1.020 (1.000-1.030) 02/20/22 23:18 Urine Protein 2+ (NEGATIVE) 02/20/22 23:18 Urine Glucose (UA) Negative (NEGATIVE) 02/20/22 23:18 Urine Ketones Negative (NEGATIVE) 02/20/22 23:18 Urine Blood 4+ (NEGATIVE) 02/20/22 23:18 Urine Nitrite Negative (NEGATIVE) 02/20/22 23:18 Urine Bilirubin Negative (NEGATIVE) 02/20/22 23:18 Urine Urobilinogen Normal (NORMAL) 02/20/22 23:18 Ur Leukocyte Esterase 3+ (NEGATIVE) 02/20/22 23:18 Urine RBC Tntc /HPF (0-3) A 02/20/22 23:18 Urine WBC Tntc /HPF (0-5) A 02/20/22 23:18 Ur Squamous Epith Cells Moderate /HPF (NEGATIVE) 02/20/22 23:18 Urine Bacteria 2+ /HPF (NEGATIVE) 02/20/22 23:18 Urine Yeast Moderate /HPF (NEGATIVE) 02/20/22 23:18 Ur Culture Indicated? Yes/culture set up 02/20/22 23:18 SARS CoV-2 RNA Rapid CLARA Negative (NEGATIVE) 02/21/22 01:52 Review of Systems Constitutional: Weakness and Malaise Eyes: No Symptoms Reported ENT: No Symptoms Reported Respiratory: Cough Cardiovascular: No Symptoms Reported Gastrointestinal: No Symptoms Reported Genitourinary: No Symptoms Reported Musculoskeletal: Foot Pain (Left heel pain.) Skin: No Symptoms Reported Neurological: No Symptoms Reported Physical Exam Vital Signs: Temperature 97.5 F Pulse Rate 80 Respiratory Rate 17 Blood Pressure [Left Arm] 115/50 Blood Pressure 108/79 O2 Sat by Pulse Oximetry 97 Oriented: Normal Eyes: Normal Ear: Normal Nose: Normal Throat: Normal Respiratory: Clear Throughout Cardiovascular: Normal : Normal Auscultation: Bowel Sounds: Normal Palpation: Normal Tenderness: Normal Skin: Normal Musculoskeletal: Left, Leg and Foot Mood Description: Calm Affect: Normal Speech Pattern: Clear and Appropriate Assessment/Plan (1) Volume depletion: Status: Acute Plan: Intravenous fluid hydration. (2) Complicated UTI (urinary tract infection): Status: Acute Plan: Rocephin 1 g IV daily. (3) Ulcer of left heel: Status: Acute Plan: Patient is seen by the general surgery for this. (4) DM2 (diabetes mellitus, type 2): Status: Acute (5) Hypothyroidism: Status: Acute Plan: Continue levothyroxine 100 mcg daily. (6) HTN (hypertension): Status: Acute Plan: Monitor blood pressure at this time. (7) Anemia, chronic disease: Status: Acute Plan: Patient's hemoglobin is at her normal baseline. (8) Hyponatremia: Status: Acute Plan: Normal saline IV hydration. (9) Hyperkalemia: Status: Acute Plan: Hold the patient's Spironolactone at this time. Continue IV hydration. Recheck CMP in the morning. Review H&P Reviewed: Yes Patient was examined?: Yes
[2022-02-21] MEDS: NORCO 10/325 TAB PO SCH ×4 (14:08→20:52)
[2022-02-21] MEDS ORDERED: BUTT CREAM (COMPOUND) ONE (17:58)
[2022-02-21] MEDS: SEROquel TAB 25 mg PO SCH (20:52)
[2022-02-21] MEDS: LIPITOR TAB 10 MG PO SCH (20:52)
[2022-02-21] MEDS: COLACE CAP 100 MG PO SCH (20:53)
[2022-02-21] MEDS: MILK OF MAGNESIA PO SCH (20:53)
[2022-02-21] MEDS ORDERED: QUETIAPINE 50 MG PO SCH (21:00)
[2022-02-22] MEDS: NORCO 10/325 TAB PO SCH ×5 (04:06→22:05)
[2022-02-22] MEDS: ROCEPHIN VIAL 1 GRAM 1 G in NS 100 ML IV 100 ML IV SCH (04:07)
[2022-02-22] MEDS: NEURONTIN TAB 600 MG PO SCH ×3 (06:00→22:04)
[2022-02-22] MEDS: NS 1,000 ML IV 1,000 ML IV SCH ×2 (06:02→18:02)
[2022-02-22 07:30] LABS: BASOPHILS # (AUTO) 0.1 X10^3/uL (0.0-0.1); BASOPHILS % (AUTO) 1.2 % (0.2-1.0); EOSINOPHILS # (AUTO) 0.4 x10^3/uL (0.0-0.2); EOSINOPHILS % (AUTO) 4.8 % (0.9-2.9); HEMATOCRIT 31.5 % (36.0-47.0); HEMOGLOBIN 10.1 g/dL (12.0-16.0); LYMPHOCYTES # (AUTO) 1.9 X10^3/uL (1.3-2.9); LYMPHOCYTES % (AUTO) 21.5 % (21.0-51.0); MEAN CORPUSCULAR HEMOGLOBIN 25.1 pg (27.0-34.0); MEAN CORPUSCULAR VOLUME 78.5 fL (80.0-100.0); MEAN PLATELET VOLUME 8.3 fL (7.4-11.0); MONOCYTES # (AUTO) 0.8 x10^3/uL (0.3-0.8); MONOCYTES % (AUTO) 9.2 % (0.0-13.0); NEUTROPHILS # (AUTO) 5.7 x10^3/uL (2.2-4.8); NEUTROPHILS % (AUTO) 63.3 % (42.0-75.0); RED BLOOD COUNT 4.01 X10^6/uL (3.5-5.4); RED CELL DISTRIBUTION WIDTH 22.3 % (11.6-16.5)
[2022-02-22 07:36] LABS: ALANINE AMINOTRANSFERASE 19 Units/L (12-78); ALKALINE PHOSPHATASE 119 Units/L (46-116); ASPARTATE AMINO TRANSFERASE 23 Units/L (15-37); BLOOD UREA NITROGEN 29 mg/dL (7-18); CALCIUM 9.2 mg/dL (8.5-10.1); CARBON DIOXIDE 22.3 mmol/L (21-32); CHLORIDE 97 mmol/L (98-107); CREATININE 2.08 mg/dL (0.55-1.02); SODIUM 130 mmol/L (136-145); TOTAL PROTEIN 7.2 g/dL (6.4-8.2); eGFR NON BLACK RACES 24 (>60)
[2022-02-22] MEDS: DIFLUCAN PO SCH (08:15)
[2022-02-22] MEDS: LOVENOX INJ 30 MG SYR SC SCH (08:15)
[2022-02-22] MEDS: FERROUS GLUCONATE PO SCH (08:15)
[2022-02-22] MEDS: LINZESS PO SCH (08:15)
[2022-02-22] MEDS: ZYLOPRIM PO SCH (08:16)
[2022-02-22] MEDS: SYNTHROID 100 mcg TAB PO SCH (08:16)
[2022-02-22] MEDS: PROTONIX TAB 40 MG PO SCH ×2 (08:16→22:04)
[2022-02-22 08:48] LABS: PLATELET MORPHOLOGY COMMENT NORMAL (NORMAL)
[2022-02-22 08:49] LABS: ANISOCYTOSIS 2+; BURR CELLS SLIGHT; HYPOCHROMASIA SLIGHT; MICROCYTOSIS SLIGHT; TARGET CELLS SLIGHT
[2022-02-22] MEDS ORDERED: NS 1,000 ML IV 1,000 ML IV ONE (13:53)
[2022-02-22] MEDS: COLACE CAP 100 MG PO SCH (21:03)
[2022-02-22] MEDS: FLOMAX PO SCH (22:04)
[2022-02-22] MEDS: SEROquel TAB 25 mg PO SCH (22:04)
[2022-02-22] MEDS: MILK OF MAGNESIA PO SCH (22:05)
[2022-02-22] MEDS: LIPITOR TAB 10 MG PO SCH (22:05)
[2022-02-23] MEDS: ROCEPHIN VIAL 1 GRAM 1 G in NS 100 ML IV 100 ML IV SCH (03:43)
[2022-02-23] MEDS: NORCO 10/325 TAB PO SCH ×4 (03:46→20:26)
[2022-02-23 06:37] LABS: BASOPHILS # (AUTO) 0.1 X10^3/uL (0.0-0.1); BASOPHILS % (AUTO) 1.3 % (0.2-1.0); EOSINOPHILS # (AUTO) 0.3 x10^3/uL (0.0-0.2); EOSINOPHILS % (AUTO) 3.6 % (0.9-2.9); HEMATOCRIT 31.6 % (36.0-47.0); LYMPHOCYTES # (AUTO) 1.5 X10^3/uL (1.3-2.9); LYMPHOCYTES % (AUTO) 19.2 % (21.0-51.0); MEAN CORPUSCULAR HEMOGLOBIN 25.1 pg (27.0-34.0); MEAN CORPUSCULAR HGB CONC 31.7 g/dL (33.0-35.0); MEAN CORPUSCULAR VOLUME 79.2 fL (80.0-100.0); MEAN PLATELET VOLUME 8.5 fL (7.4-11.0); MONOCYTES # (AUTO) 0.6 x10^3/uL (0.3-0.8); MONOCYTES % (AUTO) 7.9 % (0.0-13.0); NEUTROPHILS # (AUTO) 5.5 x10^3/uL (2.2-4.8); RED BLOOD COUNT 3.99 X10^6/uL (3.5-5.4); RED CELL DISTRIBUTION WIDTH 22.7 % (11.6-16.5)
[2022-02-23] MEDS: NEURONTIN TAB 600 MG PO SCH ×3 (06:47→21:00)
[2022-02-23 07:04] LABS: ALANINE AMINOTRANSFERASE 12 Units/L (12-78); ALBUMIN 2.7 g/dL (3.4-5.0); ALKALINE PHOSPHATASE 103 Units/L (46-116); ASPARTATE AMINO TRANSFERASE 20 Units/L (15-37); BLOOD UREA NITROGEN 21 mg/dL (7-18); CALCIUM 8.8 mg/dL (8.5-10.1); CARBON DIOXIDE 21.5 mmol/L (21-32); CHLORIDE 103 mmol/L (98-107); COR CA(FOR HYPOALB) 9.8 mg/dL (8.5-10.1); CREATININE 1.56 mg/dL (0.55-1.02); SODIUM 135 mmol/L (136-145); TOTAL PROTEIN 6.5 g/dL (6.4-8.2); eGFR NON BLACK RACES 34 (>60)
[2022-02-23 07:46] LABS: PLATELET MORPHOLOGY COMMENT NORMAL (NORMAL)
[2022-02-23 07:47] LABS: ANISOCYTOSIS 2+; BURR CELLS SLIGHT; HYPOCHROMASIA SLIGHT; TARGET CELLS FEW
[2022-02-23 07:48] LABS: MICROCYTOSIS SLIGHT
[2022-02-23] MEDS: LINZESS PO SCH (08:53)
[2022-02-23] MEDS: FERROUS GLUCONATE PO SCH (08:53)
[2022-02-23] MEDS: DIFLUCAN PO SCH (08:53)
[2022-02-23] MEDS: LOVENOX INJ 30 MG SYR SC SCH (08:53)
[2022-02-23] MEDS: NS 1,000 ML IV 1,000 ML IV SCH ×2 (08:53→20:23)
[2022-02-23] MEDS: PROTONIX TAB 40 MG PO SCH ×2 (08:53→20:26)
[2022-02-23] MEDS: SYNTHROID 100 mcg TAB PO SCH (08:53)
[2022-02-23] MEDS: ZYLOPRIM PO SCH (08:54)
[2022-02-23] MEDS ORDERED: DIFLUCAN PO SCH (12:00)
[2022-02-23] MEDS: RHINOCORT ALLERGY NASAL SPRAY ENOSTRIL SCH (12:58)
[2022-02-23] MEDS: LIPITOR TAB 10 MG PO SCH (20:25)
[2022-02-23] MEDS: SEROquel TAB 25 mg PO SCH (20:25)
[2022-02-23] MEDS: COLACE CAP 100 MG PO SCH (20:26)
[2022-02-23] MEDS: FLOMAX PO SCH (20:27)
[2022-02-23] MEDS: MILK OF MAGNESIA PO SCH (20:28)
[2022-02-24] MEDS: ROCEPHIN VIAL 1 GRAM 1 G in NS 100 ML IV 100 ML IV SCH (03:09)
[2022-02-24] MEDS: NS 1,000 ML IV 1,000 ML IV SCH ×2 (03:10→10:33)
[2022-02-24] MEDS: NORCO 10/325 TAB PO SCH ×2 (03:10→09:06)
[2022-02-24] MEDS: NEURONTIN TAB 600 MG PO SCH (05:17)
[2022-02-24 05:57] LABS: BASOPHILS # (AUTO) 0.1 X10^3/uL (0.0-0.1); BASOPHILS % (AUTO) 1.6 % (0.2-1.0); EOSINOPHILS # (AUTO) 0.3 x10^3/uL (0.0-0.2); EOSINOPHILS % (AUTO) 3.3 % (0.9-2.9); HEMATOCRIT 30.4 % (36.0-47.0); HEMOGLOBIN 9.8 g/dL (12.0-16.0); LYMPHOCYTES # (AUTO) 2.2 X10^3/uL (1.3-2.9); LYMPHOCYTES % (AUTO) 25.2 % (21.0-51.0); MEAN CORPUSCULAR HEMOGLOBIN 25.6 pg (27.0-34.0); MEAN CORPUSCULAR HGB CONC 32.3 g/dL (33.0-35.0); MEAN CORPUSCULAR VOLUME 79.3 fL (80.0-100.0); MEAN PLATELET VOLUME 8.3 fL (7.4-11.0); MONOCYTES # (AUTO) 0.7 x10^3/uL (0.3-0.8); MONOCYTES % (AUTO) 8.3 % (0.0-13.0); NEUTROPHILS # (AUTO) 5.3 x10^3/uL (2.2-4.8); NEUTROPHILS % (AUTO) 61.6 % (42.0-75.0); RED BLOOD COUNT 3.83 X10^6/uL (3.5-5.4); WHITE BLOOD COUNT 8.6 X10^3/uL (3.6-10.0)
[2022-02-24 06:12] LABS: ALBUMIN 2.4 g/dL (3.4-5.0); CALCIUM 8.5 mg/dL (8.5-10.1); CARBON DIOXIDE 21.8 mmol/L (21-32); COR CA(FOR HYPOALB) 9.8 mg/dL (8.5-10.1); CREATININE 1.36 mg/dL (0.55-1.02)
--- NOTE | 2022-02-24 06:16 | RAD ---
HISTORYCoughSTUDYAP [id number] heart size with clear lungs and pleural spaces.IMPRESSIONNo change; no acute chest findings.Electronically signed by: BELEN NYE (Feb 24, 2022 06:15:27)
[2022-02-24 06:30] LABS: ANISOCYTOSIS 2+; HYPOCHROMASIA SLIGHT; MICROCYTOSIS SLIGHT; PLATELET MORPHOLOGY COMMENT NORMAL (NORMAL)
[2022-02-24 06:31] LABS: BURR CELLS PRESENT; TARGET CELLS PRESENT
[2022-02-24 08:55] VITALS: BP 129/58
[2022-02-24] MEDS ORDERED: DIFLUCAN PO SCH (09:00)
[2022-02-24] MEDS: PROTONIX TAB 40 MG PO SCH (09:06)
[2022-02-24] MEDS: ZYLOPRIM PO SCH (09:07)
[2022-02-24] MEDS: LOVENOX INJ 30 MG SYR SC SCH (09:07)
[2022-02-24] MEDS: SYNTHROID 100 mcg TAB PO SCH (09:07)
[2022-02-24] MEDS: FERROUS GLUCONATE PO SCH (09:07)
[2022-02-24] MEDS: RHINOCORT ALLERGY NASAL SPRAY ENOSTRIL SCH (09:07)
[2022-02-24] MEDS: LINZESS PO SCH (09:07)
[2022-02-24] MEDS ORDERED: NEURONTIN CAP 100 MG PO SCH (14:00)
--- NOTE | 2022-05-11 20:59 | PCM.DCPLAN ---
DISCHARGE SUMMARY Admission Date Date of Admission: 02/21/22 Discharge Date Discharge Date: 02/24/22 Admission Diagnoses (1) Volume depletion: Status: Acute (2) Complicated UTI (urinary tract infection): Status: Acute (3) Ulcer of left heel: Status: Acute (4) DM2 (diabetes mellitus, type 2): Status: Acute (5) Hypothyroidism: Status: Acute (6) HTN (hypertension): Status: Acute (7) Anemia, chronic disease: Status: Acute (8) Hyponatremia: Status: Acute (9) Hyperkalemia: Status: Acute Discharge Diagnoses Discharge Diagnosis: 1. Dehydration now resolved 2. Urinary tract infection secondary to Enterococcus faecium 3. Diabetes mellitus type 2 stable 4. Hyperkalemia now resolved 5. Hyponatremia now resolved 6. Anemia of chronic disease stable 7. Hypertension stable 8. 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 9. Hypothyroidism stable Discharge Medications Discharge Medications: Home Medication List Linzess 145 mcg PO DAILY 02/21/22 [History] albuterol sulfate 2.5 mg INHALATION TID PRN 02/21/22 [History] gabapentin [Neurontin] 600 mg PO TID 02/21/22 [History] gentamicin 1 applic TOPICAL BID 02/21/22 [History] hydrocodone-acetaminophen 1 tab PO PRN PRN 02/21/22 [History] levothyroxine 100 mcg PO DAILY 02/21/22 [History] quetiapine [Seroquel] 50 mg PO HS 02/21/22 [History] Prescriptions: Hospital Course Vital Signs: Temperature 97.8 F Pulse Rate 72 Respiratory Rate 18 Blood Pressure [Left Arm] 115/50 Blood Pressure 129/58 O2 Sat by Pulse Oximetry 96 Latest Lab Results: Laboratory Last Values WBC 8.6 X10^3/uL (3.6-10.0) 02/24/22 05:19 RBC 3.83 X10^6/uL (3.5-5.4) 02/24/22 05:19 Hgb 9.8 g/dL (12.0-16.0) L 02/24/22 05:19 Hct 30.4 % (36.0-47.0) L 02/24/22 05:19 MCV 79.3 fL (80.0-100.0) L 02/24/22 05:19 MCH 25.6 pg (27.0-34.0) L 02/24/22 05:19 MCHC 32.3 g/dL (33.0-35.0) L 02/24/22 05:19 RDW 23.0 % (11.6-16.5) H 02/24/22 05:19 Plt Count 331 X10^3/uL (150.0-450.0) 02/24/22 05:19 Plt Count Comment Adequate (ADEQUATE) 02/24/22 05:19 MPV 8.3 fL (7.4-11.0) 02/24/22 05:19 Neut % (Auto) 61.6 % (42.0-75.0) 02/24/22 05:19 Lymph % (Auto) 25.2 % (21.0-51.0) 02/24/22 05:19 [place] % (Auto) 8.3 % (0.0-13.0) 02/24/22 05:19 Eos % (Auto) 3.3 % (0.9-2.9) H 02/24/22 05:19 Baso % (Auto) 1.6 % (0.2-1.0) H 02/24/22 05:19 Neut # (Auto) 5.3 x10^3/uL (2.2-4.8) H 02/24/22 05:19 Lymph # (Auto) 2.2 X10^3/uL (1.3-2.9) 02/24/22 05:19 [place] # (Auto) 0.7 x10^3/uL (0.3-0.8) 02/24/22 05:19 Eos # (Auto) 0.3 x10^3/uL (0.0-0.2) H 02/24/22 05:19 Baso # (Auto) 0.1 X10^3/uL (0.0-0.1) 02/24/22 05:19 Absolute Nucleated RBC 0.0 /100WBC 02/24/22 05:19 Plt Morphology Comment Normal (NORMAL) 02/24/22 05:19 RBC Morphology Abnormal (NORMAL) A 02/24/22 05:19 Hypochromasia Slight A 02/24/22 05:19 Anisocytosis 2+ A 02/24/22 05:19 Microcytosis Slight A 02/24/22 05:19 Target Cells Present 02/24/22 05:19 Preet Cells Present 02/24/22 05:19 Sodium 137 mmol/L (136-145) 02/24/22 05:19 Corrected Sodium 137 mmol/L (136-145) 02/24/22 05:19 Potassium 4.5 mmol/L (3.5-5.1) 02/24/22 05:19 Chloride 107 mmol/L (98-107) 02/24/22 05:19 Carbon Dioxide 21.8 mmol/L (21-32) 02/24/22 05:19 BUN 16 mg/dL (7-18) 02/24/22 05:19 Creatinine 1.36 mg/dL (0.55-1.02) H 02/24/22 05:19 Est GFR (MDRD) Af Amer 48 (>60) L 02/24/22 05:19 Est GFR (MDRD) Non-Af 39 (>60) L 02/24/22 05:19 Glucose 118 mg/dL (65-99) H 02/24/22 05:19 Calcium 8.5 mg/dL (8.5-10.1) 02/24/22 05:19 Corrected Calcium 9.8 mg/dL (8.5-10.1) 02/24/22 05:19 Total Bilirubin 0.20 mg/dL (0.2-1.0) 02/24/22 05:19 AST 17 Units/L (15-37) 02/24/22 05:19 ALT 11 Units/L (12-78) L 02/24/22 05:19 Alkaline Phosphatase 92 Units/L (46-116) 02/24/22 05:19 Creatine Kinase 202 Units/L (26-192) H 02/20/22 23:00 CK-MB (CK-2) 1.4 ng/mL (0-4.0) 02/20/22 23:00 CK/CKMB % Calc 0.7 % (<4) 02/20/22 23:00 Troponin I High Sens 9.8 ng/L (4.0-60.0) 02/20/22 23:00 Total Protein 6.0 g/dL (6.4-8.2) L 02/24/22 05:19 Albumin 2.4 g/dL (3.4-5.0) L 02/24/22 05:19 Globulin 3.6 g/dL (2.5-4.5) 02/24/22 05:19 Albumin/Globulin Ratio 0.7 Ratio (1.1-2.1) L 02/24/22 05:19 Specimen Type Catherized urine 02/20/22 23:18 Urine Color Yellow (YELLOW) 02/20/22 23:18 Urine Appearance Cloudy (CLEAR) 02/20/22 23:18 Urine pH 5.0 (5.0 - 8.0) 02/20/22 23:18 Ur Specific [place] 1.020 (1.000-1.030) 02/20/22 23:18 Urine Protein 2+ (NEGATIVE) 02/20/22 23:18 Urine Glucose (UA) Negative (NEGATIVE) 02/20/22 23:18 Urine Ketones Negative (NEGATIVE) 02/20/22 23:18 Urine Blood 4+ (NEGATIVE) 02/20/22 23:18 Urine Nitrite Negative (NEGATIVE) 02/20/22 23:18 Urine Bilirubin Negative (NEGATIVE) 02/20/22 23:18 Urine Urobilinogen Normal (NORMAL) 02/20/22 23:18 Ur Leukocyte Esterase 3+ (NEGATIVE) 02/20/22 23:18 Urine RBC Tntc /HPF (0-3) A 02/20/22 23:18 Urine WBC Tntc /HPF (0-5) A 02/20/22 23:18 Ur Squamous Epith Cells Moderate /HPF (NEGATIVE) 02/20/22 23:18 Urine Bacteria 2+ /HPF (NEGATIVE) 02/20/22 23:18 Urine Yeast Moderate /HPF (NEGATIVE) 02/20/22 23:18 Ur Culture Indicated? Yes/culture set up 02/20/22 23:18 SARS CoV-2 RNA Rapid CLARA Negative (NEGATIVE) 02/21/22 01:52 Hospital Course: After admission the patient was continued on IV fluid hydration. And she was continued on IV Rocephin. Over the next few days her hydration status improved back to her normal baseline with a normalization of her BUN and creatinine. She did grow out Enterococcus PCM however the colony-forming unit count was only between 50,000 and less than 100,000 so this is not completely indicative that she has a UTI secondary to Enterococcus faecium. Her white blood cell count has normalized after a day or 2 of admission on the Rocephin. She has remained afebrile at this time. There is also concerns about her having hypoxia which was not seen during her hospital stay nor in the ER when she came in. The family also reported that she improved daily during her hospital stay and was back to her normal baseline on the fourth day. She was discharged home in stable condition and she was instructed to resume her regular home medications. Instructions Instructions: Antibiotic Medicine, Adult Type 2 Diabetes Mellitus, Self-Care, Adult, [id number] Urinary Tract Infection, Adult, [id number] Living With Diabetes You've Been Prescribed an Antibiotic in the Hospital for an Infection - CDC Managing Your Hypertension Rehydration, Elderly Dehydration, Adult
== END 2022-02-24 11:10 | disposition home health service (06) ==
LOC: ER 22:18 → ICU 02-21 02:01 → INTOOBSV 02-21 02:01 → ICU 02-21 03:07 → MED/SURG 02-21 12:20
PROVIDERS: ADMIT Family Medicine; ATTEND Family Medicine
DX: E86.9 Volume depletion, unspecified; N39.0 Urinary tract infection, site not specified; E87.1 Hypo-osmolality and hyponatremia; L97.429 Non-pressure chronic ulcer of left heel and midfoot with unspecified severity; B95.2 Enterococcus as the cause of diseases classified elsewhere; Z20.822 Contact with and (suspected) exposure to COVID-19; E11.65 Type 2 diabetes mellitus with hyperglycemia; D63.8 Anemia in other chronic diseases classified elsewhere; E87.5 Hyperkalemia; E03.8 Other specified hypothyroidism; I10 Essential (primary) hypertension; I25.10 Atherosclerotic heart disease of native coronary artery without angina pectoris

== ENCOUNTER 2022-03-03 13:45 | Inpatient (IN) ==
[~2022-03-03 13:45] MED LIST: STERILE WATER IRRIGATION IR ONE
--- NOTE | 2022-03-03 14:50 | DR.EXTPAIN ---
HPI Time seen Time Seen by Provider: 03/03/22 14:31 Complaint/Symptoms Chief Complaint:: Pt c/o blister to posterior left lower leg. EMS reports daughter noticed this yesterday. Pt has wound to left heel and sacral area. Pt c/o pain to these areas. COVID-19 Coronavirus risk:travel/contact w/high risk person: No Has patient experienced Coronavirus symptoms: No Source History Provided: Patient and EMS Mode of arrival Mode of Arrival: Stretcher Timing Onset of Chief Complaint: 03/03/22 PMH PMH Past Medical History: Yes Past Medical History: CHF, Coronary Artery Disease, Diabetes, Dyslipidemia, Migraines, Hypertension and Hypothyroidism Past Surgical History: Yes Surgical History: Cholecystectomy and Hysterectomy Family History History of Family Medical Conditions: Yes Family Medical History: Diabetes Mellitus and Hypertension Social History Does patient currently use any type of tobacco product: No Have you used tobacco products in the last 12 months: No Type of Tobacco Use: None Does any household member use tobacco: No Alcohol Use: None Do you use any recreational Drugs:: No Lives With: Family Lives Where: Home Travel Risk Coronavirus risk:travel/contact w/high risk person: No Has patient experienced Coronavirus symptoms: No Infectious screening In the last 2 months have you had wt loss of >10#?: NO Have you had fever, night sweats or hemotysis?: No Have you traveled outside the country in the last 6 months?: No Isolation: Standard ROS Review of Systems Constitutional: No Symptoms Reported and See HPI Eyes: No Symptoms Reported and See HPI ENTM: No Symptoms Reported and See HPI Respiratoy: No Symptoms Reported and See HPI Cardiovascular: No Symptoms Reported and See HPI Gastrointestinal/Abdominal: No Symptoms Reported and See HPI Genitourinary: No Symptoms Reported and See HPI Neurological: No Symptoms Reported and See HPI Musculoskeletal: No Symptoms Reported and See HPI Integumentary: No Symptoms Reported and See HPI Hematologic/Lymphatic: No Symptoms Reported and See HPI Endocrine: No Symptoms Reported and See HPI Psychiatric: No Symptoms Reported and See HPI All Other Systems: Reviewed and Negative PE Vital Signs Vitals: Temperature 98.2 F Pulse Rate 83 Respiratory Rate 20 Blood Pressure [Left Arm] 166/72 Blood Pressure 133/96 O2 Sat by Pulse Oximetry 96 General Limitations: No Limitations General Appearance: Alert and In No Apparent Distress Head Head Exam: Normal Inspection Eyes Eye exam: Normal Appearance ENT ENT Exam: Normal Exam Neck Neck Exam: Normal Inspection Chest Chest Inspection: Normal Inspection Respiratory Respiratory Exam: Normal Lung Sounds Bilat Cardiovascular Cardiovascular Exam: Regular Rate and Normal Rhythm Abdominal Exam Abdominal Exam: Normal Inspection, Normal Bowel Sounds and Soft Extremities Extremities Exam: Normal Inspection Back Back Exam: Normal Inspection Neurological Neurological Exam: Alert, Oriented X3 and CN II-XII Intact Psychiatric Psychiatric Exam: Normal Affect and Normal Mood Skin Skin Exam: Warm, Dry, Intact and Normal Color MDM Differential Diagnosis Differential Diagnosis: Other (Decubitus ulcers, cellulitis LLE, UTI) COURSE Treatment Treatment: Labs, CT and medications. Consultation Called: 16:46 Consultation Comments: Dr. Bradshaw agrees for admit. Dr. Bray consulted on decubitus. Education/Counseling Education/Counseling: Family Educated On: Treatment and Other (Family instructed on admission) ROR Labs Reviewed Laboratory Results Reviewed?: Yes Result Diagrams: 03/10/22 05:45 03/10/22 05:45 Laboratory: 03/03/22 15:20 Blood Blood Culture - Final 03/03/22 15:05 Blood Blood Culture - Final Staphylococcus Haemolyticus 03/03/22 16:52 Urine,Catheterized Urine Culture - Final WBC 11.3 X10^3/uL (3.6-10.0) H 03/03/22 15:05 RBC 4.20 X10^6/uL (3.5-5.4) 03/03/22 15:05 Hgb 10.9 g/dL (12.0-16.0) L 03/03/22 15:05 Hct 33.7 % (36.0-47.0) L 03/03/22 15:05 MCV 80.1 fL (80.0-100.0) 03/03/22 15:05 MCH 26.0 pg (27.0-34.0) L 03/03/22 15:05 MCHC 32.5 g/dL (33.0-35.0) L 03/03/22 15:05 RDW 23.1 % (11.6-16.5) H 03/03/22 15:05 Plt Count 372 X10^3/uL (150.0-450.0) 03/03/22 15:05 Plt Count Comment Adequate (ADEQUATE) 03/03/22 15:05 MPV 8.6 fL (7.4-11.0) 03/03/22 15:05 Neut % (Auto) 69.4 % (42.0-75.0) 03/03/22 15:05 Lymph % (Auto) 20.8 % (21.0-51.0) L 03/03/22 15:05 [place] % (Auto) 7.1 % (0.0-13.0) 03/03/22 15:05 Eos % (Auto) 1.6 % (0.9-2.9) 03/03/22 15:05 Baso % (Auto) 1.1 % (0.2-1.0) H 03/03/22 15:05 Neut # (Auto) 7.8 x10^3/uL (2.2-4.8) H 03/03/22 15:05 Lymph # (Auto) 2.3 X10^3/uL (1.3-2.9) 03/03/22 15:05 [place] # (Auto) 0.8 x10^3/uL (0.3-0.8) 03/03/22 15:05 Eos # (Auto) 0.2 x10^3/uL (0.0-0.2) 03/03/22 15:05 Baso # (Auto) 0.1 X10^3/uL (0.0-0.1) 03/03/22 15:05 Absolute Nucleated RBC 0.0 /100WBC 03/03/22 15:05 Plt Morphology Comment Normal (NORMAL) 03/03/22 15:05 RBC Morphology Abnormal (NORMAL) A 03/03/22 15:05 Anisocytosis 1+ A 03/03/22 15:05 Sodium 135 mmol/L (136-145) L 03/03/22 15:05 Corrected Sodium 137 mmol/L (136-145) 03/03/22 15:05 Potassium 5.0 mmol/L (3.5-5.1) 03/03/22 15:05 Chloride 102 mmol/L (98-107) 03/03/22 15:05 Carbon Dioxide 24.1 mmol/L (21-32) 03/03/22 15:05 BUN 24 mg/dL (7-18) H 03/03/22 15:05 Creatinine 1.28 mg/dL (0.55-1.02) H 03/03/22 15:05 Est GFR (MDRD) Af Amer 51 (>60) L 03/03/22 15:05 Est GFR (MDRD) Non-Af 42 (>60) L 03/03/22 15:05 Glucose 163 mg/dL (65-99) H 03/03/22 15:05 Calcium 10.1 mg/dL (8.5-10.1) 03/03/22 15:05 Corrected Calcium 11.1 mg/dL (8.5-10.1) H 03/03/22 15:05 Total Bilirubin 0.40 mg/dL (0.2-1.0) 03/03/22 15:05 AST 24 Units/L (15-37) 03/03/22 15:05 ALT 16 Units/L (12-78) 03/03/22 15:05 Alkaline Phosphatase 100 Units/L (46-116) 03/03/22 15:05 Total Protein 7.1 g/dL (6.4-8.2) 03/03/22 15:05 Albumin 2.8 g/dL (3.4-5.0) L 03/03/22 15:05 Globulin 4.3 g/dL (2.5-4.5) 03/03/22 15:05 Albumin/Globulin Ratio 0.7 Ratio (1.1-2.1) L 03/03/22 15:05 Specimen Type Catherized urine 03/03/22 16:52 Urine Color Yellow (YELLOW) 03/03/22 16:52 Urine Appearance Cloudy (CLEAR) 03/03/22 16:52 Urine pH 5.0 (5.0 - 8.0) 03/03/22 16:52 Ur Specific [place] 1.015 (1.000-1.030) 03/03/22 16:52 Urine Protein 2+ (NEGATIVE) 03/03/22 16:52 Urine Glucose (UA) Negative (NEGATIVE) 03/03/22 16:52 Urine Ketones 1+ (NEGATIVE) 03/03/22 16:52 Urine Blood 5+ (NEGATIVE) 03/03/22 16:52 Urine Nitrite Negative (NEGATIVE) 03/03/22 16:52 Urine Bilirubin Negative (NEGATIVE) 03/03/22 16:52 Urine Urobilinogen Normal (NORMAL) 03/03/22 16:52 Ur Leukocyte Esterase 3+ (NEGATIVE) 03/03/22 16:52 Urine RBC Tntc /HPF (0-3) A 03/03/22 16:52 Urine WBC Tntc /HPF (0-5) A 03/03/22 16:52 Ur Squamous Epith Cells Rare /HPF (NEGATIVE) 03/03/22 16:52 Urine Bacteria Trace /HPF (NEGATIVE) 03/03/22 16:52 Ur Culture Indicated? Yes/culture set up 03/03/22 16:52 SARS CoV-2 RNA Rapid CLARA Negative (NEGATIVE) 03/03/22 17:25 Other Results Comments: Talked to family, reviewed results and findings XRAY XRAY Interpreted by: Radiologist X-ray Results: Name: VIOLETTE NULL I : 1935 Sex: F Location: ER Order Number(s): [id number] Procedure(s):LOWER EXT VENOUS, BILATERAL Ordering Physician: NETTE WESLEY Primary Care: Pipe Marquez Service Date: 03/03/22 Service Time: 1722 EXAM: BILATERAL LOWER EXTREMITY VENOUS DOPPLER ULTRASOUND HISTORY: Bilateral lower extremity pain. TECHNIQUE: The lower extremity veins were interrogated with a high-frequency linear transducer, employing grayscale imaging, duplex Doppler and color flow Doppler imaging. COMPARISON: None available. FINDINGS: RIGHT: Interrogation of the common femoral vein, superficial femoral vein, popliteal vein, and posterior tibial vein demonstrates no intraluminal filling defects, no lack of vein compressibility, or no absence of intraluminal color flow Doppler signal to suggest deep venous thrombosis. There is no evidence for luminal thrombosis of the saphenous veins to suggest superficial vein thrombosis. No popliteal lesion reminiscent of a Astudillo's cyst is seen. No gross arterial aneurysm is incidentally noted. LEFT: Interrogation of the common femoral vein, superficial femoral vein, popliteal vein, and posterior tibial vein demonstrates no intraluminal filling defects, no lack of vein compressibility, or no absence of intraluminal color flow Doppler signal to suggest deep venous thrombosis. There is no evidence for luminal thrombosis of the saphenous veins to suggest superficial vein thrombosis. No popliteal lesion reminiscent of a Astudillo's cyst is seen. No gross arterial aneurysm is incidentally noted. Note: DVT could be missed early in the disease when clot burden is minimal. For patients with moderate and high pretest probability of DVT and negative ultrasound, the [place] [employer] clinical guidelines recommend testing with a d-dimer assay or repeat ultrasound in 5-7 days. If symptoms worsen, the Society of radiologists in ultrasound recommend repeating ultrasound even earlier. IMPRESSION: 1. No evidence for DVT seen bilaterally. 2. No abnormal fluid collection or Astudillo's cyst seen bilaterally. Electronically signed by: Alfred Lewis (Mar 03, 2022 18:43:05) Report Electronically signed: 03/03/22 [id number] CC: Nette Wesley Opioid Opioid Risk Tool Age (Hugo box if 16-45): No History of Preadolescent Sexual Abuse: No Total: 0 Total Score Risk Category: Low Risk Copyright: Jhonny BEE predicting aberrant behaviors Instructions Instructions: How to Change Your Wound Dressing, [id number] Preventing Pressure Injuries Urinary Tract Infection, Adult, [id number] Surgical Wound Debridement, Care After Blood Glucose Monitoring, Adult Hypertension Forms: Precautions for COVID19 [facility] Social Distancing ADDITIONAL NOTES Additional Notes Additional Notes: Pt admtted to Med-Surg
[2022-03-03 15:31] LABS: BASOPHILS # (AUTO) 0.1 X10^3/uL (0.0-0.1); BASOPHILS % (AUTO) 1.1 % (0.2-1.0); EOSINOPHILS # (AUTO) 0.2 x10^3/uL (0.0-0.2); EOSINOPHILS % (AUTO) 1.6 % (0.9-2.9); HEMATOCRIT 33.7 % (36.0-47.0); HEMOGLOBIN 10.9 g/dL (12.0-16.0); LYMPHOCYTES # (AUTO) 2.3 X10^3/uL (1.3-2.9); LYMPHOCYTES % (AUTO) 20.8 % (21.0-51.0); MEAN CORPUSCULAR HGB CONC 32.5 g/dL (33.0-35.0); MEAN CORPUSCULAR VOLUME 80.1 fL (80.0-100.0); MEAN PLATELET VOLUME 8.6 fL (7.4-11.0); MONOCYTES # (AUTO) 0.8 x10^3/uL (0.3-0.8); MONOCYTES % (AUTO) 7.1 % (0.0-13.0); NEUTROPHILS # (AUTO) 7.8 x10^3/uL (2.2-4.8); NEUTROPHILS % (AUTO) 69.4 % (42.0-75.0); RED CELL DISTRIBUTION WIDTH 23.1 % (11.6-16.5); WHITE BLOOD COUNT 11.3 X10^3/uL (3.6-10.0)
[2022-03-03 15:50] LABS: ALBUMIN 2.8 g/dL (3.4-5.0); CALCIUM 10.1 mg/dL (8.5-10.1); CARBON DIOXIDE 24.1 mmol/L (21-32); COR CA(FOR HYPOALB) 11.1 mg/dL (8.5-10.1); CREATININE 1.28 mg/dL (0.55-1.02); TOTAL PROTEIN 7.1 g/dL (6.4-8.2)
[2022-03-03 15:52] LABS: ANISOCYTOSIS 1+; PLATELET MORPHOLOGY COMMENT NORMAL (NORMAL)
[2022-03-03 17:04] LABS: BILIRUBIN,URINE NEGATIVE (NEGATIVE); BLOOD/HEMOGLOBIN,URINE 5+ (NEGATIVE); GLUCOSE, URINE NEGATIVE (NEGATIVE); KETONES,URINE 1+ (NEGATIVE); LEUKOCYTE ESTERASE ,URINE 3+ (NEGATIVE); NITRITES,URINE NEGATIVE (NEGATIVE); PROTEIN,URINE 2+ (NEGATIVE); UROBILINOGEN,URINE NORMAL (NORMAL)
[2022-03-03 17:17] LABS: APPEARANCE,URINE CLOUDY (CLEAR); COLOR,URINE YELLOW (YELLOW)
[2022-03-03 17:18] LABS: BACTERIA,URINE TRACE /HPF (NEGATIVE); RBC,URINE TNTC /HPF (0-3); SQUAMOUS EPITHELIAL CELL,UR RARE /HPF (NEGATIVE)
--- NOTE | 2022-03-03 18:43 | VAS ---
EXAM: BILATERAL LOWER EXTREMITY VENOUS DOPPLER ULTRASOUNDHISTORY: Bilateral lower extremity pain.TECHNIQUE: The lower extremity veins were interrogated with a high-frequency linear transducer, employing grayscale imaging, duplex Doppler and color flow Doppler imaging.COMPARISON: None available.FINDINGS:RIGHT: Interrogation of the common femoral vein, superficial femoral vein, popliteal vein, and posterior tibial vein demonstrates no intraluminal filling defects, no lack of vein compressibility, or no absence of intraluminal color flow Doppler signal to suggest deep venous thrombosis. There is no evidence for luminal thrombosis of the saphenous veins to suggest superficial vein thrombosis. No popliteal lesion reminiscent of a Astudillo's cyst is seen. No gross arterial aneurysm is incidentally noted.LEFT: Interrogation of the common femoral vein, superficial femoral vein, popliteal vein, and posterior tibial vein demonstrates no intraluminal filling defects, no lack of vein compressibility, or no absence of intraluminal color flow Doppler signal to suggest deep venous thrombosis. There is no evidence for luminal thrombosis of the saphenous veins to suggest superficial vein thrombosis. No popliteal lesion reminiscent of a Astudillo's cyst is seen. No gross arterial aneurysm is incidentally noted.Note: DVT could be missed early in the disease when clot burden is minimal. For patients with moderate and high pretest probability of DVT and negative ultrasound, the [employer] clinical guidelines recommend testing with a d-dimer assay or repeat ultrasound in 5-7 days. If symptoms worsen, the Society of radiologists in ultrasound recommend repeating ultrasound even earlier.IMPRESSION:1. No evidence for DVT seen bilaterally.2. No abnormal fluid collection or Astudillo's cyst seen bilaterally.Electronically signed by: Alfred Lewis (Mar 03, 2022 18:43:05)
[2022-03-03] MEDS ORDERED: ZOFRAN INJ 4 MG VIAL IVP ONE (19:55)
[2022-03-03] MEDS ORDERED: ZOFRAN INJ 4 MG VIAL ONE (20:00)
[2022-03-03] MEDS ORDERED: NS 1,000 ML IV 1,000 ML ONE (20:03)
[2022-03-03] MEDS ORDERED: ZOSYN VIAL 3.375 GRAMS 3.375 G in NS 100 ML IV 100 ML IV ONE (20:03)
[2022-03-03] MEDS: NS 1,000 ML IV 1,000 ML IV SCH (20:05)
[2022-03-03] MEDS ORDERED: ZOSYN VIAL 3.375 GRAMS IV ONE (20:06)
[2022-03-03] MEDS ORDERED: NS 100 ML IV 100 ML ONE (20:06)
[2022-03-03] MEDS ORDERED: ZOFRAN TAB 4 MG PO PRN (20:55)
[2022-03-04 06:27] LABS: BASOPHILS # (AUTO) 0.1 X10^3/uL (0.0-0.1); BASOPHILS % (AUTO) 0.8 % (0.2-1.0); EOSINOPHILS # (AUTO) 0.1 x10^3/uL (0.0-0.2); EOSINOPHILS % (AUTO) 1.4 % (0.9-2.9); HEMATOCRIT 34.1 % (36.0-47.0); HEMOGLOBIN 11.2 g/dL (12.0-16.0); LYMPHOCYTES # (AUTO) 1.6 X10^3/uL (1.3-2.9); LYMPHOCYTES % (AUTO) 15.1 % (21.0-51.0); MEAN CORPUSCULAR HEMOGLOBIN 26.1 pg (27.0-34.0); MEAN CORPUSCULAR HGB CONC 32.8 g/dL (33.0-35.0); MEAN CORPUSCULAR VOLUME 79.7 fL (80.0-100.0); MEAN PLATELET VOLUME 8.3 fL (7.4-11.0); MONOCYTES # (AUTO) 0.7 x10^3/uL (0.3-0.8); MONOCYTES % (AUTO) 6.7 % (0.0-13.0); NEUTROPHILS # (AUTO) 8.2 x10^3/uL (2.2-4.8); RED BLOOD COUNT 4.27 X10^6/uL (3.5-5.4); WHITE BLOOD COUNT 10.8 X10^3/uL (3.6-10.0)
[2022-03-04 06:46] LABS: CALCIUM 9.9 mg/dL (8.5-10.1); CARBON DIOXIDE 19.1 mmol/L (21-32); CREATININE 1.21 mg/dL (0.55-1.02)
[2022-03-04 07:10] LABS: ALBUMIN 2.6 g/dL (3.4-5.0); TOTAL PROTEIN 6.8 g/dL (6.4-8.2)
[2022-03-04 07:13] LABS: ANISOCYTOSIS 2+; HYPOCHROMASIA SLIGHT; MICROCYTOSIS SLIGHT; PLATELET MORPHOLOGY COMMENT NORMAL (NORMAL)
[2022-03-04] MEDS ORDERED: NORCO 10/325 TAB PO PRN (09:27)
[2022-03-04] MEDS: NS 1,000 ML IV 1,000 ML IV SCH (09:38)
[2022-03-04] MEDS ORDERED: ZOFRAN INJ 4 MG VIAL IVP PRN (12:00)
[2022-03-04] MEDS ORDERED: MORPHINE SULFATE INJ 2 MG INJ IVP PRN (12:00)
[2022-03-04] MEDS ORDERED: MORPHINE SULFATE INJ 2 MG INJ ONE (12:09)
[2022-03-04] MEDS ORDERED: XYLOCAINE 1 % (PLAIN) ONE (12:53)
[2022-03-04] MEDS ORDERED: BETADINE SOLN ONE ×2 (12:53→13:24)
[2022-03-04] MEDS ORDERED: POLYMYXIN B SULFATE ONE (12:53)
[2022-03-04] MEDS ORDERED: NS 100 ML IV 100 ML ONE (13:01)
[2022-03-04] MEDS ORDERED: ANCEF VIAL 1 GRAM ONE (13:01)
[2022-03-04] MEDS ORDERED: NS 1,000 ML IV 1,000 ML ONE (13:01)
[2022-03-04] MEDS ORDERED: PEPCID 20 MG VIAL ONE (13:11)
[2022-03-04] MEDS ORDERED: DIPRIVAN VIAL 20 ML ONE (13:11)
[2022-03-04] MEDS ORDERED: VERSED ONE (13:11)
[2022-03-04] MEDS ORDERED: ZOFRAN INJ 4 MG VIAL ONE (13:11)
[2022-03-04] MEDS ORDERED: XYLOCAINE 2 % (PLAIN) ONE (13:16)
[2022-03-04] MEDS ORDERED: KETAMINE HCL ONE (13:17)
[2022-03-04] MEDS ORDERED: FENTANYL VIAL INJ 100 mcg ONE (13:18)
[2022-03-04] MEDS: NEURONTIN TAB 600 MG PO SCH ×3 (14:08→21:58)
[2022-03-04] MEDS: SYNTHROID 100 mcg TAB PO SCH (14:11)
[2022-03-04] MEDS: PROTONIX TAB 40 MG PO SCH ×2 (14:11→21:54)
[2022-03-04] MEDS: ZYLOPRIM PO SCH (14:11)
[2022-03-04] MEDS: LINZESS PO SCH (14:11)
[2022-03-04] MEDS ORDERED: BUTT CREAM (COMPOUND) ONE (15:14)
[2022-03-04] MEDS ORDERED: BUTT CREAM (COMPOUND) TOP PRN (15:16)
[2022-03-04] MEDS: SEROquel TAB 25 mg PO SCH (21:54)
[2022-03-05] MEDS: NS 1,000 ML IV 1,000 ML IV SCH ×2 (02:46→14:37)
[2022-03-05 04:34] LABS: BASOPHILS # (AUTO) 0.1 X10^3/uL (0.0-0.1); BASOPHILS % (AUTO) 1.1 % (0.2-1.0); EOSINOPHILS # (AUTO) 0.2 x10^3/uL (0.0-0.2); EOSINOPHILS % (AUTO) 2.1 % (0.9-2.9); HEMATOCRIT 29.3 % (36.0-47.0); HEMOGLOBIN 9.6 g/dL (12.0-16.0); LYMPHOCYTES # (AUTO) 2.4 X10^3/uL (1.3-2.9); LYMPHOCYTES % (AUTO) 27.5 % (21.0-51.0); MEAN CORPUSCULAR HEMOGLOBIN 26.4 pg (27.0-34.0); MEAN CORPUSCULAR HGB CONC 32.8 g/dL (33.0-35.0); MEAN CORPUSCULAR VOLUME 80.6 fL (80.0-100.0); MEAN PLATELET VOLUME 8.5 fL (7.4-11.0); MONOCYTES # (AUTO) 0.8 x10^3/uL (0.3-0.8); MONOCYTES % (AUTO) 8.8 % (0.0-13.0); NEUTROPHILS # (AUTO) 5.3 x10^3/uL (2.2-4.8); NEUTROPHILS % (AUTO) 60.5 % (42.0-75.0); RED BLOOD COUNT 3.63 X10^6/uL (3.5-5.4); RED CELL DISTRIBUTION WIDTH 22.9 % (11.6-16.5); WHITE BLOOD COUNT 8.8 X10^3/uL (3.6-10.0)
[2022-03-05 04:43] LABS: ALANINE AMINOTRANSFERASE 10 Units/L (12-78); ALBUMIN 2.2 g/dL (3.4-5.0); ALKALINE PHOSPHATASE 80 Units/L (46-116); ASPARTATE AMINO TRANSFERASE 12 Units/L (15-37); BLOOD UREA NITROGEN 17 mg/dL (7-18); CALCIUM 9.1 mg/dL (8.5-10.1); CARBON DIOXIDE 24.6 mmol/L (21-32); CHLORIDE 105 mmol/L (98-107); COR CA(FOR HYPOALB) 10.5 mg/dL (8.5-10.1); COR NA(FOR HYPERGLY) 139 mmol/L (136-145); CREATININE 1.08 mg/dL (0.55-1.02); SODIUM 137 mmol/L (136-145); TOTAL PROTEIN 5.9 g/dL (6.4-8.2); eGFR NON BLACK RACES 51 (>60)
[2022-03-05 05:10] LABS: ANISOCYTOSIS 2+; HYPOCHROMASIA SLIGHT; PLATELET MORPHOLOGY COMMENT NORMAL (NORMAL)
[2022-03-05 05:14] LABS: SCHISTOCYTES PRESENT
[2022-03-05] MEDS: NEURONTIN TAB 600 MG PO SCH ×3 (05:32→22:57)
[2022-03-05] MEDS: PROTONIX TAB 40 MG PO SCH ×2 (09:04→20:36)
[2022-03-05] MEDS: LINZESS PO SCH (09:04)
[2022-03-05] MEDS: SYNTHROID 100 mcg TAB PO SCH (09:04)
[2022-03-05] MEDS: ZYLOPRIM PO SCH (09:04)
[2022-03-05] MEDS ORDERED: PHARMACY CONSULT - VANCOMYCIN XX SCH (10:00)
[2022-03-05] MEDS: VANCOMYCIN IV *PREMIX 1 G/200 ML BAG 1 G/200 ML PIGGYBACK IV SCH ×2 (10:33→20:36)
--- NOTE | 2022-03-05 16:36 | DR.PROGNOT ---
Hospital Progress Notes - Progress Note for Day of: Progress Note Date: 03/05/22 - Chief Complaint Chief Complaint: more comfortable with less pain .. dressings are intact . no drainage .. CBC and lytes are normal .. - Past Medical Family Social History Past Med/Fam/Surg Hx: No changes since H&P Allergies: Allergies codeine Allergy (Verified 12/19/21 13:53) - Review Of Systems ROS: No change since H&P - Vital Signs Vital Signs: Temperature 98.4 F Pulse Rate [Left Brachial] 75 Pulse Rate [Left Radial] 72 Pulse Rate 83 Respiratory Rate 16 Blood Pressure [Left Arm] 158/67 Blood Pressure 133/96 O2 Sat by Pulse Oximetry 98 - Physical Exam Oriented: Normal Eyes: Normal Ear: Normal Nose: Normal Throat: Normal Skin: Other (dressings are clean and dry ..) Speech Pattern: Clear, Appropriate - Laboratory and Diagnostics Result Diagrams: 03/05/22 04:20 03/05/22 04:20 Labs: 03/04/22 13:40 Leg - Left Wound Gram Stain - Final 03/04/22 13:40 Leg - Left Wound Culture - Preliminary 03/03/22 15:05 Blood Blood Culture - Preliminary 03/03/22 16:52 Urine,Catheterized Urine Culture - Final 03/03/22 15:20 Blood Blood Culture - Preliminary Laboratory WBC 8.8 X10^3/uL (3.6-10.0) 03/05/22 04:20 RBC 3.63 X10^6/uL (3.5-5.4) 03/05/22 04:20 Hgb 9.6 g/dL (12.0-16.0) L 03/05/22 04:20 Hct 29.3 % (36.0-47.0) L 03/05/22 04:20 MCV 80.6 fL (80.0-100.0) 03/05/22 04:20 MCH 26.4 pg (27.0-34.0) L 03/05/22 04:20 MCHC 32.8 g/dL (33.0-35.0) L 03/05/22 04:20 RDW 22.9 % (11.6-16.5) H 03/05/22 04:20 Plt Count 345 X10^3/uL (150.0-450.0) 03/05/22 04:20 Plt Count Comment Adequate (ADEQUATE) 03/05/22 04:20 MPV 8.5 fL (7.4-11.0) 03/05/22 04:20 Neut % (Auto) 60.5 % (42.0-75.0) 03/05/22 04:20 Lymph % (Auto) 27.5 % (21.0-51.0) 03/05/22 04:20 [place] % (Auto) 8.8 % (0.0-13.0) 03/05/22 04:20 Eos % (Auto) 2.1 % (0.9-2.9) 03/05/22 04:20 Baso % (Auto) 1.1 % (0.2-1.0) H 03/05/22 04:20 Neut # (Auto) 5.3 x10^3/uL (2.2-4.8) H 03/05/22 04:20 Lymph # (Auto) 2.4 X10^3/uL (1.3-2.9) 03/05/22 04:20 [place] # (Auto) 0.8 x10^3/uL (0.3-0.8) 03/05/22 04:20 Eos # (Auto) 0.2 x10^3/uL (0.0-0.2) 03/05/22 04:20 Baso # (Auto) 0.1 X10^3/uL (0.0-0.1) 03/05/22 04:20 Absolute Nucleated RBC 0.0 /100WBC 03/05/22 04:20 Plt Morphology Comment Normal (NORMAL) 03/05/22 04:20 RBC Morphology Abnormal (NORMAL) A 03/05/22 04:20 Hypochromasia Slight A 03/05/22 04:20 Anisocytosis 2+ A 03/05/22 04:20 Microcytosis Slight A 03/04/22 06:09 Schistocytes Present 03/05/22 04:20 Sodium 137 mmol/L (136-145) 03/05/22 04:20 Corrected Sodium 139 mmol/L (136-145) 03/05/22 04:20 Potassium 4.2 mmol/L (3.5-5.1) 03/05/22 04:20 Chloride 105 mmol/L (98-107) 03/05/22 04:20 Carbon Dioxide 24.6 mmol/L (21-32) 03/05/22 04:20 BUN 17 mg/dL (7-18) 03/05/22 04:20 Creatinine 1.08 mg/dL (0.55-1.02) H 03/05/22 04:20 Est GFR (MDRD) Af Amer > 60 (>60) 03/05/22 04:20 Est GFR (MDRD) Non-Af 51 (>60) L 03/05/22 04:20 Glucose 182 mg/dL (65-99) H 03/05/22 04:20 POC Glucose (mg/dL) 132 mg/dL (65-99) H 03/04/22 13:14 Calcium 9.1 mg/dL (8.5-10.1) 03/05/22 04:20 Corrected Calcium 10.5 mg/dL (8.5-10.1) H 03/05/22 04:20 Total Bilirubin 0.30 mg/dL (0.2-1.0) 03/05/22 04:20 AST 12 Units/L (15-37) L 03/05/22 04:20 ALT 10 Units/L (12-78) L 03/05/22 04:20 Alkaline Phosphatase 80 Units/L (46-116) 03/05/22 04:20 Total Protein 5.9 g/dL (6.4-8.2) L 03/05/22 04:20 Albumin 2.2 g/dL (3.4-5.0) L 03/05/22 04:20 Globulin 3.7 g/dL (2.5-4.5) 03/05/22 04:20 Albumin/Globulin Ratio 0.6 Ratio (1.1-2.1) L 03/05/22 04:20 Specimen Type Catherized urine 03/03/22 16:52 Urine Color Yellow (YELLOW) 03/03/22 16:52 Urine Appearance Cloudy (CLEAR) 03/03/22 16:52 Urine pH 5.0 (5.0 - 8.0) 03/03/22 16:52 Ur Specific [place] 1.015 (1.000-1.030) 03/03/22 16:52 Urine Protein 2+ (NEGATIVE) 03/03/22 16:52 Urine Glucose (UA) Negative (NEGATIVE) 03/03/22 16:52 Urine Ketones 1+ (NEGATIVE) 03/03/22 16:52 Urine Blood 5+ (NEGATIVE) 03/03/22 16:52 Urine Nitrite Negative (NEGATIVE) 03/03/22 16:52 Urine Bilirubin Negative (NEGATIVE) 03/03/22 16:52 Urine Urobilinogen Normal (NORMAL) 03/03/22 16:52 Ur Leukocyte Esterase 3+ (NEGATIVE) 03/03/22 16:52 Urine RBC Tntc /HPF (0-3) A 03/03/22 16:52 Urine WBC Tntc /HPF (0-5) A 03/03/22 16:52 Ur Squamous Epith Cells Rare /HPF (NEGATIVE) 03/03/22 16:52 Urine Bacteria Trace /HPF (NEGATIVE) 03/03/22 16:52 Ur Culture Indicated? Yes/culture set up 03/03/22 16:52 SARS CoV-2 RNA Rapid CLARA Negative (NEGATIVE) 03/03/22 17:25 Tissue Pathology To follow 03/04/22 13:34 - Assessment and Plan 1: Lt heel and leg ulcers .. same local care and IV ABT .
[2022-03-05] MEDS: SEROquel TAB 25 mg PO SCH (20:36)
[2022-03-06] MEDS: NS 1,000 ML IV 1,000 ML IV SCH ×2 (03:51→15:46)
[2022-03-06 06:10] LABS: BASOPHILS # (AUTO) 0.1 X10^3/uL (0.0-0.1); BASOPHILS % (AUTO) 1.2 % (0.2-1.0); EOSINOPHILS # (AUTO) 0.2 x10^3/uL (0.0-0.2); EOSINOPHILS % (AUTO) 2.4 % (0.9-2.9); HEMATOCRIT 32.6 % (36.0-47.0); HEMOGLOBIN 10.3 g/dL (12.0-16.0); LYMPHOCYTES # (AUTO) 1.7 X10^3/uL (1.3-2.9); LYMPHOCYTES % (AUTO) 20.3 % (21.0-51.0); MEAN CORPUSCULAR HEMOGLOBIN 25.7 pg (27.0-34.0); MEAN CORPUSCULAR HGB CONC 31.7 g/dL (33.0-35.0); MEAN CORPUSCULAR VOLUME 81.1 fL (80.0-100.0); MEAN PLATELET VOLUME 8.9 fL (7.4-11.0); MONOCYTES # (AUTO) 0.7 x10^3/uL (0.3-0.8); MONOCYTES % (AUTO) 7.9 % (0.0-13.0); NEUTROPHILS # (AUTO) 5.7 x10^3/uL (2.2-4.8); NEUTROPHILS % (AUTO) 68.2 % (42.0-75.0); RED BLOOD COUNT 4.02 X10^6/uL (3.5-5.4); RED CELL DISTRIBUTION WIDTH 22.4 % (11.6-16.5); WHITE BLOOD COUNT 8.3 X10^3/uL (3.6-10.0)
[2022-03-06 06:17] LABS: ALANINE AMINOTRANSFERASE 10 Units/L (12-78); ALBUMIN 2.4 g/dL (3.4-5.0); ALKALINE PHOSPHATASE 83 Units/L (46-116); ASPARTATE AMINO TRANSFERASE 13 Units/L (15-37); BLOOD UREA NITROGEN 11 mg/dL (7-18); CALCIUM 9.5 mg/dL (8.5-10.1); CARBON DIOXIDE 26.6 mmol/L (21-32); CHLORIDE 107 mmol/L (98-107); COR CA(FOR HYPOALB) 10.8 mg/dL (8.5-10.1); COR NA(FOR HYPERGLY) 141 mmol/L (136-145); CREATININE 0.93 mg/dL (0.55-1.02); SODIUM 139 mmol/L (136-145); TOTAL PROTEIN 6.1 g/dL (6.4-8.2); eGFR NON BLACK RACES > 60 (>60)
[2022-03-06] MEDS: NEURONTIN TAB 600 MG PO SCH ×3 (07:00→21:30)
[2022-03-06 07:25] LABS: ANISOCYTOSIS 2+; PLATELET MORPHOLOGY COMMENT NORMAL (NORMAL)
[2022-03-06 07:26] LABS: HYPOCHROMASIA SLIGHT
[2022-03-06] MEDS: VANCOMYCIN IV *PREMIX 1 G/200 ML BAG 1 G/200 ML PIGGYBACK IV SCH ×2 (09:20→21:30)
[2022-03-06] MEDS: LINZESS PO SCH (09:21)
[2022-03-06] MEDS: PROTONIX TAB 40 MG PO SCH ×2 (09:21→21:30)
[2022-03-06] MEDS: ZYLOPRIM PO SCH (09:22)
[2022-03-06] MEDS: SYNTHROID 100 mcg TAB PO SCH (09:22)
[2022-03-06] MEDS: COREG TAB 6.25 MG PO SCH ×2 (09:35→21:30)
[2022-03-06] MEDS: COZAAR PO SCH (09:35)
--- NOTE | 2022-03-06 17:06 | DR.PROGNOT ---
Hospital Progress Notes - Progress Note for Day of: Progress Note Date: 03/06/22 - Chief Complaint Chief Complaint: more comfortable with less pain .. dressings was changed both heel and calf ulcers are dry . no need for wound vac . Xerofom dressing with ABD and Cling were applied . - Past Medical Family Social History Past Med/Fam/Surg Hx: No changes since H&P Allergies: Allergies codeine Allergy (Verified 12/19/21 13:53) - Review Of Systems ROS: No change since H&P - Vital Signs Vital Signs: Temperature 98.7 F Pulse Rate [Left Brachial] 75 Pulse Rate [Left Radial] 84 Pulse Rate 83 Respiratory Rate 18 Blood Pressure [Left Arm] 149/65 Blood Pressure 133/96 O2 Sat by Pulse Oximetry 95 - Physical Exam Oriented: Normal Eyes: Normal Ear: Normal Nose: Normal Throat: Normal Skin: Other (dressings are clean and dry ..) Speech Pattern: Clear, Appropriate - Laboratory and Diagnostics Result Diagrams: 03/06/22 05:35 03/06/22 05:35 Labs: 03/04/22 13:40 Leg - Left Wound Gram Stain - Final 03/04/22 13:40 Leg - Left Wound Culture - Preliminary 03/03/22 15:05 Blood Blood Culture - Final Staphylococcus Haemolyticus 03/03/22 16:52 Urine,Catheterized Urine Culture - Final 03/03/22 15:20 Blood Blood Culture - Preliminary Laboratory WBC 8.3 X10^3/uL (3.6-10.0) 03/06/22 05:35 RBC 4.02 X10^6/uL (3.5-5.4) 03/06/22 05:35 Hgb 10.3 g/dL (12.0-16.0) L 03/06/22 05:35 Hct 32.6 % (36.0-47.0) L 03/06/22 05:35 MCV 81.1 fL (80.0-100.0) 03/06/22 05:35 MCH 25.7 pg (27.0-34.0) L 03/06/22 05:35 MCHC 31.7 g/dL (33.0-35.0) L 03/06/22 05:35 RDW 22.4 % (11.6-16.5) H 03/06/22 05:35 Plt Count 390 X10^3/uL (150.0-450.0) 03/06/22 05:35 Plt Count Comment Adequate (ADEQUATE) 03/06/22 05:35 MPV 8.9 fL (7.4-11.0) 03/06/22 05:35 Neut % (Auto) 68.2 % (42.0-75.0) 03/06/22 05:35 Lymph % (Auto) 20.3 % (21.0-51.0) L 03/06/22 05:35 [place] % (Auto) 7.9 % (0.0-13.0) 03/06/22 05:35 Eos % (Auto) 2.4 % (0.9-2.9) 03/06/22 05:35 Baso % (Auto) 1.2 % (0.2-1.0) H 03/06/22 05:35 Neut # (Auto) 5.7 x10^3/uL (2.2-4.8) H 03/06/22 05:35 Lymph # (Auto) 1.7 X10^3/uL (1.3-2.9) 03/06/22 05:35 [place] # (Auto) 0.7 x10^3/uL (0.3-0.8) 03/06/22 05:35 Eos # (Auto) 0.2 x10^3/uL (0.0-0.2) 03/06/22 05:35 Baso # (Auto) 0.1 X10^3/uL (0.0-0.1) 03/06/22 05:35 Absolute Nucleated RBC 0.0 /100WBC 03/06/22 05:35 Plt Morphology Comment Normal (NORMAL) 03/06/22 05:35 RBC Morphology Abnormal (NORMAL) A 03/06/22 05:35 Hypochromasia Slight A 03/06/22 05:35 Anisocytosis 2+ A 03/06/22 05:35 Microcytosis Slight A 03/04/22 06:09 Schistocytes Present 03/05/22 04:20 Sodium 139 mmol/L (136-145) 03/06/22 05:35 Corrected Sodium 141 mmol/L (136-145) 03/06/22 05:35 Potassium 4.2 mmol/L (3.5-5.1) 03/06/22 05:35 Chloride 107 mmol/L (98-107) 03/06/22 05:35 Carbon Dioxide 26.6 mmol/L (21-32) 03/06/22 05:35 BUN 11 mg/dL (7-18) 03/06/22 05:35 Creatinine 0.93 mg/dL (0.55-1.02) 03/06/22 05:35 Est GFR (MDRD) Af Amer > 60 (>60) 03/06/22 05:35 Est GFR (MDRD) Non-Af > 60 (>60) 03/06/22 05:35 Glucose 193 mg/dL (65-99) H 03/06/22 05:35 POC Glucose (mg/dL) 132 mg/dL (65-99) H 03/04/22 13:14 Calcium 9.5 mg/dL (8.5-10.1) 03/06/22 05:35 Corrected Calcium 10.8 mg/dL (8.5-10.1) H 03/06/22 05:35 Total Bilirubin 0.30 mg/dL (0.2-1.0) 03/06/22 05:35 AST 13 Units/L (15-37) L 03/06/22 05:35 ALT 10 Units/L (12-78) L 03/06/22 05:35 Alkaline Phosphatase 83 Units/L (46-116) 03/06/22 05:35 Total Protein 6.1 g/dL (6.4-8.2) L 03/06/22 05:35 Albumin 2.4 g/dL (3.4-5.0) L 03/06/22 05:35 Globulin 3.7 g/dL (2.5-4.5) 03/06/22 05:35 Albumin/Globulin Ratio 0.6 Ratio (1.1-2.1) L 03/06/22 05:35 Specimen Type Catherized urine 03/03/22 16:52 Urine Color Yellow (YELLOW) 03/03/22 16:52 Urine Appearance Cloudy (CLEAR) 03/03/22 16:52 Urine pH 5.0 (5.0 - 8.0) 03/03/22 16:52 Ur Specific [place] 1.015 (1.000-1.030) 03/03/22 16:52 Urine Protein 2+ (NEGATIVE) 03/03/22 16:52 Urine Glucose (UA) Negative (NEGATIVE) 03/03/22 16:52 Urine Ketones 1+ (NEGATIVE) 03/03/22 16:52 Urine Blood 5+ (NEGATIVE) 03/03/22 16:52 Urine Nitrite Negative (NEGATIVE) 03/03/22 16:52 Urine Bilirubin Negative (NEGATIVE) 03/03/22 16:52 Urine Urobilinogen Normal (NORMAL) 03/03/22 16:52 Ur Leukocyte Esterase 3+ (NEGATIVE) 03/03/22 16:52 Urine RBC Tntc /HPF (0-3) A 03/03/22 16:52 Urine WBC Tntc /HPF (0-5) A 03/03/22 16:52 Ur Squamous Epith Cells Rare /HPF (NEGATIVE) 03/03/22 16:52 Urine Bacteria Trace /HPF (NEGATIVE) 03/03/22 16:52 Ur Culture Indicated? Yes/culture set up 03/03/22 16:52 SARS CoV-2 RNA Rapid CLARA Negative (NEGATIVE) 03/03/22 17:25 Tissue Pathology To follow 03/04/22 13:34 - Assessment and Plan 1: Lt heel and leg ulcers .. same local care and IV ABT . Xerofom dressings , ABD and Clings every 3 days . no need for wound Vac now ..
[2022-03-06] MEDS ORDERED: PHARMACY COMMENT IV NR (20:30)
[2022-03-06 20:44] LABS: CREATININE 0.85 mg/dL (0.55-1.02); VANCOMYCIN,TROUGH 19.9 ug/mL (15-20)
[2022-03-06] MEDS: SEROquel TAB 25 mg PO SCH (21:30)
[2022-03-07 06:18] LABS: BASOPHILS # (AUTO) 0.1 X10^3/uL (0.0-0.1); EOSINOPHILS # (AUTO) 0.2 x10^3/uL (0.0-0.2); HEMATOCRIT 30.3 % (36.0-47.0); HEMOGLOBIN 9.8 g/dL (12.0-16.0); MEAN CORPUSCULAR HEMOGLOBIN 26.1 pg (27.0-34.0); MEAN CORPUSCULAR HGB CONC 32.4 g/dL (33.0-35.0); MEAN CORPUSCULAR VOLUME 80.7 fL (80.0-100.0); MONOCYTES # (AUTO) 0.7 x10^3/uL (0.3-0.8); NEUTROPHILS # (AUTO) 5.6 x10^3/uL (2.2-4.8); RED BLOOD COUNT 3.76 X10^6/uL (3.5-5.4); RED CELL DISTRIBUTION WIDTH 22.5 % (11.6-16.5); WHITE BLOOD COUNT 8.5 X10^3/uL (3.6-10.0)
[2022-03-07 06:25] LABS: ALANINE AMINOTRANSFERASE 9 Units/L (12-78); ALBUMIN 2.3 g/dL (3.4-5.0); ALKALINE PHOSPHATASE 80 Units/L (46-116); ASPARTATE AMINO TRANSFERASE 12 Units/L (15-37); BLOOD UREA NITROGEN 10 mg/dL (7-18); CARBON DIOXIDE 21.8 mmol/L (21-32); CHLORIDE 106 mmol/L (98-107); COR CA(FOR HYPOALB) 10.4 mg/dL (8.5-10.1); COR NA(FOR HYPERGLY) 140 mmol/L (136-145); CREATININE 0.85 mg/dL (0.55-1.02); SODIUM 137 mmol/L (136-145); TOTAL PROTEIN 5.9 g/dL (6.4-8.2); eGFR NON BLACK RACES > 60 (>60)
[2022-03-07] MEDS: NEURONTIN TAB 600 MG PO SCH ×3 (07:00→22:37)
[2022-03-07 07:13] LABS: PLATELET MORPHOLOGY COMMENT NORMAL (NORMAL)
[2022-03-07 07:14] LABS: ANISOCYTOSIS 2+; HYPOCHROMASIA SLIGHT
[2022-03-07] MEDS ORDERED: PROCRIT or EPOGEN VIAL 10,000 UNITS SC ONE (09:12)
[2022-03-07] MEDS: COREG TAB 25 MG PO SCH ×2 (09:45→22:36)
[2022-03-07] MEDS: PROTONIX TAB 40 MG PO SCH ×2 (09:45→22:37)
[2022-03-07] MEDS: LINZESS PO SCH (09:53)
[2022-03-07] MEDS: COZAAR PO SCH (09:53)
[2022-03-07] MEDS: SYNTHROID 100 mcg TAB PO SCH (09:54)
[2022-03-07] MEDS: ZYLOPRIM PO SCH (09:54)
[2022-03-07] MEDS: VANCOMYCIN IV *PREMIX 1 G/200 ML BAG 1 G/200 ML PIGGYBACK IV SCH ×2 (09:55→22:37)
[2022-03-07] MEDS: NS 1,000 ML IV 1,000 ML IV SCH ×3 (09:56→21:53)
[2022-03-07] MEDS: SEROquel TAB 25 mg PO SCH (22:37)
[2022-03-08] MEDS: NEURONTIN TAB 600 MG PO SCH ×3 (05:31→21:02)
[2022-03-08 05:47] LABS: BASOPHILS # (AUTO) 0.1 X10^3/uL (0.0-0.1); BASOPHILS % (AUTO) 1.1 % (0.2-1.0); EOSINOPHILS # (AUTO) 0.2 x10^3/uL (0.0-0.2); EOSINOPHILS % (AUTO) 2.3 % (0.9-2.9); HEMATOCRIT 29.1 % (36.0-47.0); HEMOGLOBIN 9.3 g/dL (12.0-16.0); LYMPHOCYTES # (AUTO) 2.1 X10^3/uL (1.3-2.9); LYMPHOCYTES % (AUTO) 25.2 % (21.0-51.0); MEAN CORPUSCULAR HEMOGLOBIN 25.9 pg (27.0-34.0); MEAN CORPUSCULAR HGB CONC 32.1 g/dL (33.0-35.0); MEAN CORPUSCULAR VOLUME 80.7 fL (80.0-100.0); MEAN PLATELET VOLUME 8.6 fL (7.4-11.0); MONOCYTES # (AUTO) 0.7 x10^3/uL (0.3-0.8); MONOCYTES % (AUTO) 8.4 % (0.0-13.0); NEUTROPHILS # (AUTO) 5.3 x10^3/uL (2.2-4.8); RED CELL DISTRIBUTION WIDTH 22.8 % (11.6-16.5); WHITE BLOOD COUNT 8.5 X10^3/uL (3.6-10.0)
[2022-03-08 05:56] LABS: ALANINE AMINOTRANSFERASE 9 Units/L (12-78); ALBUMIN 2.2 g/dL (3.4-5.0); ALKALINE PHOSPHATASE 73 Units/L (46-116); ASPARTATE AMINO TRANSFERASE 11 Units/L (15-37); BLOOD UREA NITROGEN 10 mg/dL (7-18); CALCIUM 8.7 mg/dL (8.5-10.1); CARBON DIOXIDE 21.8 mmol/L (21-32); CHLORIDE 106 mmol/L (98-107); COR CA(FOR HYPOALB) 10.1 mg/dL (8.5-10.1); COR NA(FOR HYPERGLY) 141 mmol/L (136-145); CREATININE 0.89 mg/dL (0.55-1.02); SODIUM 138 mmol/L (136-145); TOTAL PROTEIN 5.5 g/dL (6.4-8.2); eGFR NON BLACK RACES > 60 (>60)
[2022-03-08 06:20] LABS: ANISOCYTOSIS 2+; PLATELET MORPHOLOGY COMMENT NORMAL (NORMAL); TARGET CELLS PRESENT
[2022-03-08 06:21] LABS: HYPOCHROMASIA SLIGHT; SCHISTOCYTES PRESENT
[2022-03-08] MEDS ORDERED: POTASSIUM CHL 60 MEQ/NS 0.45% 500 ML IV PRN (06:24)
[2022-03-08] MEDS ORDERED: MICRO K EXTEN CAP 10 MEQ PO PRN (06:24)
[2022-03-08] MEDS ORDERED: K-DUR TAB 20 MEQ PO PRN (06:24)
[2022-03-08] MEDS ORDERED: POTASSIUM CHL 40 MEQ/NS 0.45% 500 ML IV PRN (06:24)
[2022-03-08] MEDS ORDERED: KLOR-CON PO PRN (06:24)
[2022-03-08] MEDS ORDERED: K-RIDER 10 MEQ/NS 100 ML 10 MEQ/100 ML BAG IV PRN (06:24)
[2022-03-08] MEDS ORDERED: POTASSIUM CHLORIDE LIQ 20 MEQ UDC PO PRN (06:24)
[2022-03-08] MEDS: VANCOMYCIN IV *PREMIX 1 G/200 ML BAG 1 G/200 ML PIGGYBACK IV SCH (10:21)
[2022-03-08] MEDS: ZYLOPRIM PO SCH (10:23)
[2022-03-08] MEDS: COZAAR PO SCH (10:23)
[2022-03-08] MEDS: PROTONIX TAB 40 MG PO SCH ×2 (10:23→20:27)
[2022-03-08] MEDS: COREG TAB 25 MG PO SCH ×2 (10:23→20:27)
[2022-03-08] MEDS: LINZESS PO SCH (10:24)
[2022-03-08] MEDS: SYNTHROID 100 mcg TAB PO SCH (10:25)
[2022-03-08] MEDS: MAGNESIUM SULFATE 1 GRAM/100 mL PREMIX 1 G/100 ML BAG IV SCH ×2 (11:38→16:25)
[2022-03-08] MEDS ORDERED: MAGNESIUM SULFATE 1 GRAM/100 mL PREMIX 1 G/100 ML BAG IV ONE (16:22)
[2022-03-08] MEDS: SEROquel TAB 25 mg PO SCH (20:28)
[2022-03-08 21:56] LABS: CREATININE 0.93 mg/dL (0.55-1.02)
[2022-03-08 21:57] LABS: VANCOMYCIN,TROUGH 30.1 ug/mL (15-20)
[2022-03-09] MEDS: NEURONTIN TAB 600 MG PO SCH ×4 (06:07→22:34)
[2022-03-09 06:28] LABS: BASOPHILS # (AUTO) 0.1 X10^3/uL (0.0-0.1); BASOPHILS % (AUTO) 1.1 % (0.2-1.0); EOSINOPHILS # (AUTO) 0.2 x10^3/uL (0.0-0.2); HEMATOCRIT 31.6 % (36.0-47.0); HEMOGLOBIN 10.1 g/dL (12.0-16.0); LYMPHOCYTES # (AUTO) 1.9 X10^3/uL (1.3-2.9); LYMPHOCYTES % (AUTO) 21.5 % (21.0-51.0); MEAN CORPUSCULAR HEMOGLOBIN 26.1 pg (27.0-34.0); MEAN CORPUSCULAR HGB CONC 31.8 g/dL (33.0-35.0); MEAN PLATELET VOLUME 8.7 fL (7.4-11.0); MONOCYTES # (AUTO) 0.7 x10^3/uL (0.3-0.8); MONOCYTES % (AUTO) 8.1 % (0.0-13.0); NEUTROPHILS # (AUTO) 6.1 x10^3/uL (2.2-4.8); NEUTROPHILS % (AUTO) 67.3 % (42.0-75.0); RED BLOOD COUNT 3.85 X10^6/uL (3.5-5.4); RED CELL DISTRIBUTION WIDTH 22.7 % (11.6-16.5)
[2022-03-09 06:46] LABS: ALANINE AMINOTRANSFERASE 10 Units/L (12-78); ALBUMIN 2.3 g/dL (3.4-5.0); ALKALINE PHOSPHATASE 74 Units/L (46-116); ASPARTATE AMINO TRANSFERASE 9 Units/L (15-37); BLOOD UREA NITROGEN 12 mg/dL (7-18); CALCIUM 8.8 mg/dL (8.5-10.1); CHLORIDE 107 mmol/L (98-107); COR CA(FOR HYPOALB) 10.2 mg/dL (8.5-10.1); COR NA(FOR HYPERGLY) 142 mmol/L (136-145); CREATININE 0.91 mg/dL (0.55-1.02); MAGNESIUM 1.9 mg/dL (1.7-2.9); SODIUM 138 mmol/L (136-145); TOTAL PROTEIN 5.7 g/dL (6.4-8.2); eGFR NON BLACK RACES > 60 (>60)
[2022-03-09 06:58] LABS: ANISOCYTOSIS 2+; PLATELET MORPHOLOGY COMMENT NORMAL (NORMAL)
[2022-03-09 06:59] LABS: HYPOCHROMASIA SLIGHT
[2022-03-09] MEDS: NS 1,000 ML IV 1,000 ML IV SCH ×4 (07:01→18:37)
[2022-03-09] MEDS: PHARMACY CONSULT - VANCOMYCIN XX SCH ×2 (07:13→21:14)
[2022-03-09] MEDS: COZAAR PO SCH (08:19)
[2022-03-09] MEDS: COREG TAB 25 MG PO SCH ×3 (08:19→22:34)
[2022-03-09] MEDS: LINZESS PO SCH (08:19)
[2022-03-09] MEDS: SYNTHROID 100 mcg TAB PO SCH (08:20)
[2022-03-09] MEDS: PROTONIX TAB 40 MG PO SCH ×3 (08:20→22:34)
[2022-03-09] MEDS: ZYLOPRIM PO SCH (08:20)
--- NOTE | 2022-03-09 08:59 | PCM.PROG ---
Progress Note Progress Note for Day of Date of Exam: 03/08/22 Subjective Subjective: Pt is a 86 year old female admitted for bacteremia with blood cultures positive for Staphylococcus haemolyticus. It is multi drug resistant as is usual for this species. It is also well-known part of skin yahir however, it is also known to cause disease and given the fact that she has decubitus ulcers, this may actually represent a significant infection for her. We will continue to finish a course of IV therapy with Vancomycin for this positive blood culture in this 86-year-old frail patient. Yesterday she had her coreg increased to 25mg BID and has done well with current dose. Otherwise continue with current treatment plan and home medications, closely monitor and follow up labs in the morning. Past Medical Family Social History Past Med/Fam/Surg Hx: No changes since H&P Allergies: Allergies codeine Allergy (Verified 12/19/21 13:53) Review of Systems ROS: No change since H&P Vital Signs and I&O's Vital Signs: Temperature 98.4 F Pulse Rate [Left Brachial] 65 Pulse Rate [Left Radial] 74 Pulse Rate 83 Respiratory Rate 20 Blood Pressure [Left Arm] 159/67 Blood Pressure 133/96 O2 Sat by Pulse Oximetry 99 Intake and Output: Intake & Output 03/06/22 03/07/22 03/08/22 03/09/22 23:59 23:59 23:59 23:59 Intake Total 2300 / 2300 540 / 540 2665 / 2665 444 / 444 Output Total 2 / 2 Balance 2298 / 2298 540 / 540 2665 / 2665 444 / 444 Physical Exam Oriented: Normal Eyes: Normal Ear: Normal Nose: Normal Throat: Normal Respiratory: Normal Skin: Other (dressings are clean and dry ..) Speech Pattern: Clear and Appropriate Laboratory and Diagnostics Result Diagrams: 03/09/22 05:53 03/09/22 05:53 Labs: 03/03/22 15:20 Blood Blood Culture - Final 03/04/22 13:40 Leg - Left Wound Gram Stain - Final 03/04/22 13:40 Leg - Left Wound Culture - Final Staphylococcus Haemolyticus 03/03/22 15:05 Blood Blood Culture - Final Staphylococcus Haemolyticus 03/03/22 16:52 Urine,Catheterized Urine Culture - Final Laboratory WBC 9.0 X10^3/uL (3.6-10.0) 03/09/22 05:53 RBC 3.85 X10^6/uL (3.5-5.4) 03/09/22 05:53 Hgb 10.1 g/dL (12.0-16.0) L 03/09/22 05:53 Hct 31.6 % (36.0-47.0) L 03/09/22 05:53 MCV 82.0 fL (80.0-100.0) 03/09/22 05:53 MCH 26.1 pg (27.0-34.0) L 03/09/22 05:53 MCHC 31.8 g/dL (33.0-35.0) L 03/09/22 05:53 RDW 22.7 % (11.6-16.5) H 03/09/22 05:53 Plt Count 374 X10^3/uL (150.0-450.0) 03/09/22 05:53 Plt Count Comment Adequate (ADEQUATE) 03/09/22 05:53 MPV 8.7 fL (7.4-11.0) 03/09/22 05:53 Neut % (Auto) 67.3 % (42.0-75.0) 03/09/22 05:53 Lymph % (Auto) 21.5 % (21.0-51.0) 03/09/22 05:53 [place] % (Auto) 8.1 % (0.0-13.0) 03/09/22 05:53 Eos % (Auto) 2.0 % (0.9-2.9) 03/09/22 05:53 Baso % (Auto) 1.1 % (0.2-1.0) H 03/09/22 05:53 Neut # (Auto) 6.1 x10^3/uL (2.2-4.8) H 03/09/22 05:53 Lymph # (Auto) 1.9 X10^3/uL (1.3-2.9) 03/09/22 05:53 [place] # (Auto) 0.7 x10^3/uL (0.3-0.8) 03/09/22 05:53 Eos # (Auto) 0.2 x10^3/uL (0.0-0.2) 03/09/22 05:53 Baso # (Auto) 0.1 X10^3/uL (0.0-0.1) 03/09/22 05:53 Absolute Nucleated RBC 0.1 /100WBC 03/09/22 05:53 Plt Morphology Comment Normal (NORMAL) 03/09/22 05:53 RBC Morphology Abnormal (NORMAL) A 03/09/22 05:53 Hypochromasia Slight A 03/09/22 05:53 Anisocytosis 2+ A 03/09/22 05:53 Microcytosis Slight A 03/04/22 06:09 Target Cells Present 03/08/22 05:05 Schistocytes Present 03/08/22 05:05 Sodium 138 mmol/L (136-145) 03/09/22 05:53 Corrected Sodium 142 mmol/L (136-145) 03/09/22 05:53 Potassium 4.1 mmol/L (3.5-5.1) 03/09/22 05:53 Chloride 107 mmol/L (98-107) 03/09/22 05:53 Carbon Dioxide 22.0 mmol/L (21-32) 03/09/22 05:53 BUN 12 mg/dL (7-18) 03/09/22 05:53 Creatinine 0.91 mg/dL (0.55-1.02) 03/09/22 05:53 Est GFR (MDRD) Af Amer > 60 (>60) 03/09/22 05:53 Est GFR (MDRD) Non-Af > 60 (>60) 03/09/22 05:53 Glucose 246 mg/dL (65-99) H 03/09/22 05:53 POC Glucose (mg/dL) 132 mg/dL (65-99) H 03/04/22 13:14 Calcium 8.8 mg/dL (8.5-10.1) 03/09/22 05:53 Corrected Calcium 10.2 mg/dL (8.5-10.1) H 03/09/22 05:53 Magnesium 1.9 mg/dL (1.7-2.9) 03/09/22 05:53 Total Bilirubin 0.30 mg/dL (0.2-1.0) 03/09/22 05:53 AST 9 Units/L (15-37) L 03/09/22 05:53 ALT 10 Units/L (12-78) L 03/09/22 05:53 Alkaline Phosphatase 74 Units/L (46-116) 03/09/22 05:53 Total Protein 5.7 g/dL (6.4-8.2) L 03/09/22 05:53 Albumin 2.3 g/dL (3.4-5.0) L 03/09/22 05:53 Globulin 3.4 g/dL (2.5-4.5) 03/09/22 05:53 Albumin/Globulin Ratio 0.7 Ratio (1.1-2.1) L 03/09/22 05:53 Specimen Type Catherized urine 03/03/22 16:52 Urine Color Yellow (YELLOW) 03/03/22 16:52 Urine Appearance Cloudy (CLEAR) 03/03/22 16:52 Urine pH 5.0 (5.0 - 8.0) 03/03/22 16:52 Ur Specific [place] 1.015 (1.000-1.030) 03/03/22 16:52 Urine Protein 2+ (NEGATIVE) 03/03/22 16:52 Urine Glucose (UA) Negative (NEGATIVE) 03/03/22 16:52 Urine Ketones 1+ (NEGATIVE) 03/03/22 16:52 Urine Blood 5+ (NEGATIVE) 03/03/22 16:52 Urine Nitrite Negative (NEGATIVE) 03/03/22 16:52 Urine Bilirubin Negative (NEGATIVE) 03/03/22 16:52 Urine Urobilinogen Normal (NORMAL) 03/03/22 16:52 Ur Leukocyte Esterase 3+ (NEGATIVE) 03/03/22 16:52 Urine RBC Tntc /HPF (0-3) A 03/03/22 16:52 Urine WBC Tntc /HPF (0-5) A 03/03/22 16:52 Ur Squamous Epith Cells Rare /HPF (NEGATIVE) 03/03/22 16:52 Urine Bacteria Trace /HPF (NEGATIVE) 03/03/22 16:52 Ur Culture Indicated? Yes/culture set up 03/03/22 16:52 Vancomycin Trough 30.1 ug/mL (15-20) H* 03/08/22 20:58 SARS CoV-2 RNA Rapid CLARA Negative (NEGATIVE) 03/03/22 17:25 Tissue Pathology To follow 03/04/22 13:34 Plan (1) Gram-positive bacteremia: Status: Acute Plan: IV antibiotics
[2022-03-09 09:21] LABS: CREATININE 0.91 mg/dL (0.55-1.02)
[2022-03-09 09:24] LABS: VANCOMYCIN,TROUGH 27.2 ug/mL (15-20)
--- NOTE | 2022-03-09 11:31 | PCM.PROG ---
Progress Note Progress Note for Day of Date of Exam: 03/09/22 Subjective Subjective: Pt is a 86 year old female admitted for bacteremia with blood cultures positive for Staphylococcus haemolyticus. This morning she is doing well with no acute concerns or events overnight. We will continue to finish a course of IV therapy with Vancomycin and order Echo for the morning due to gram positive bacteremia. Otherwise continue with current treatment plan and home medications, closely monitor and follow up labs in the morning. Past Medical Family Social History Past Med/Fam/Surg Hx: No changes since H&P Allergies: Allergies codeine Allergy (Verified 12/19/21 13:53) Review of Systems ROS: No change since H&P Vital Signs and I&O's Vital Signs: Temperature 98.4 F Pulse Rate [Left Brachial] 65 Pulse Rate [Left Radial] 74 Pulse Rate 83 Respiratory Rate 20 Blood Pressure [Left Arm] 159/67 Blood Pressure 133/96 O2 Sat by Pulse Oximetry 99 Intake and Output: Intake & Output 03/06/22 03/07/22 03/08/22 03/09/22 23:59 23:59 23:59 23:59 Intake Total 2300 / 2300 540 / 540 2665 / 2665 444 / 444 Output Total 2 / 2 Balance 2298 / 2298 540 / 540 2665 / 2665 444 / 444 Physical Exam Oriented: Normal Eyes: Normal Ear: Normal Nose: Normal Throat: Normal Respiratory: Normal Cardiovascular: Normal Tenderness: Normal Skin: Other (dressings are clean and dry ..) Speech Pattern: Clear and Appropriate Laboratory and Diagnostics Result Diagrams: 03/09/22 05:53 03/09/22 05:53 Labs: 03/03/22 15:20 Blood Blood Culture - Final 03/04/22 13:40 Leg - Left Wound Gram Stain - Final 03/04/22 13:40 Leg - Left Wound Culture - Final Staphylococcus Haemolyticus 03/03/22 15:05 Blood Blood Culture - Final Staphylococcus Haemolyticus 03/03/22 16:52 Urine,Catheterized Urine Culture - Final Laboratory WBC 9.0 X10^3/uL (3.6-10.0) 03/09/22 05:53 RBC 3.85 X10^6/uL (3.5-5.4) 03/09/22 05:53 Hgb 10.1 g/dL (12.0-16.0) L 03/09/22 05:53 Hct 31.6 % (36.0-47.0) L 03/09/22 05:53 MCV 82.0 fL (80.0-100.0) 03/09/22 05:53 MCH 26.1 pg (27.0-34.0) L 03/09/22 05:53 MCHC 31.8 g/dL (33.0-35.0) L 03/09/22 05:53 RDW 22.7 % (11.6-16.5) H 03/09/22 05:53 Plt Count 374 X10^3/uL (150.0-450.0) 03/09/22 05:53 Plt Count Comment Adequate (ADEQUATE) 03/09/22 05:53 MPV 8.7 fL (7.4-11.0) 03/09/22 05:53 Neut % (Auto) 67.3 % (42.0-75.0) 03/09/22 05:53 Lymph % (Auto) 21.5 % (21.0-51.0) 03/09/22 05:53 [place] % (Auto) 8.1 % (0.0-13.0) 03/09/22 05:53 Eos % (Auto) 2.0 % (0.9-2.9) 03/09/22 05:53 Baso % (Auto) 1.1 % (0.2-1.0) H 03/09/22 05:53 Neut # (Auto) 6.1 x10^3/uL (2.2-4.8) H 03/09/22 05:53 Lymph # (Auto) 1.9 X10^3/uL (1.3-2.9) 03/09/22 05:53 [place] # (Auto) 0.7 x10^3/uL (0.3-0.8) 03/09/22 05:53 Eos # (Auto) 0.2 x10^3/uL (0.0-0.2) 03/09/22 05:53 Baso # (Auto) 0.1 X10^3/uL (0.0-0.1) 03/09/22 05:53 Absolute Nucleated RBC 0.1 /100WBC 03/09/22 05:53 Plt Morphology Comment Normal (NORMAL) 03/09/22 05:53 RBC Morphology Abnormal (NORMAL) A 03/09/22 05:53 Hypochromasia Slight A 03/09/22 05:53 Anisocytosis 2+ A 03/09/22 05:53 Microcytosis Slight A 03/04/22 06:09 Target Cells Present 03/08/22 05:05 Schistocytes Present 03/08/22 05:05 Sodium 138 mmol/L (136-145) 03/09/22 05:53 Corrected Sodium 142 mmol/L (136-145) 03/09/22 05:53 Potassium 4.1 mmol/L (3.5-5.1) 03/09/22 05:53 Chloride 107 mmol/L (98-107) 03/09/22 05:53 Carbon Dioxide 22.0 mmol/L (21-32) 03/09/22 05:53 BUN 12 mg/dL (7-18) 03/09/22 05:53 Creatinine 0.91 mg/dL (0.55-1.02) 03/09/22 05:53 Creatinine 0.91 mg/dL (0.55-1.02) 03/09/22 05:53 Est GFR (MDRD) Af Amer > 60 (>60) 03/09/22 05:53 Est GFR (MDRD) Non-Af > 60 (>60) 03/09/22 05:53 Glucose 246 mg/dL (65-99) H 03/09/22 05:53 POC Glucose (mg/dL) 132 mg/dL (65-99) H 03/04/22 13:14 Calcium 8.8 mg/dL (8.5-10.1) 03/09/22 05:53 Corrected Calcium 10.2 mg/dL (8.5-10.1) H 03/09/22 05:53 Magnesium 1.9 mg/dL (1.7-2.9) 03/09/22 05:53 Total Bilirubin 0.30 mg/dL (0.2-1.0) 03/09/22 05:53 AST 9 Units/L (15-37) L 03/09/22 05:53 ALT 10 Units/L (12-78) L 03/09/22 05:53 Alkaline Phosphatase 74 Units/L (46-116) 03/09/22 05:53 Total Protein 5.7 g/dL (6.4-8.2) L 03/09/22 05:53 Albumin 2.3 g/dL (3.4-5.0) L 03/09/22 05:53 Globulin 3.4 g/dL (2.5-4.5) 03/09/22 05:53 Albumin/Globulin Ratio 0.7 Ratio (1.1-2.1) L 03/09/22 05:53 Specimen Type Catherized urine 03/03/22 16:52 Urine Color Yellow (YELLOW) 03/03/22 16:52 Urine Appearance Cloudy (CLEAR) 03/03/22 16:52 Urine pH 5.0 (5.0 - 8.0) 03/03/22 16:52 Ur Specific [place] 1.015 (1.000-1.030) 03/03/22 16:52 Urine Protein 2+ (NEGATIVE) 03/03/22 16:52 Urine Glucose (UA) Negative (NEGATIVE) 03/03/22 16:52 Urine Ketones 1+ (NEGATIVE) 03/03/22 16:52 Urine Blood 5+ (NEGATIVE) 03/03/22 16:52 Urine Nitrite Negative (NEGATIVE) 03/03/22 16:52 Urine Bilirubin Negative (NEGATIVE) 03/03/22 16:52 Urine Urobilinogen Normal (NORMAL) 03/03/22 16:52 Ur Leukocyte Esterase 3+ (NEGATIVE) 03/03/22 16:52 Urine RBC Tntc /HPF (0-3) A 03/03/22 16:52 Urine WBC Tntc /HPF (0-5) A 03/03/22 16:52 Ur Squamous Epith Cells Rare /HPF (NEGATIVE) 03/03/22 16:52 Urine Bacteria Trace /HPF (NEGATIVE) 03/03/22 16:52 Ur Culture Indicated? Yes/culture set up 03/03/22 16:52 Vancomycin Trough 27.2 ug/mL (15-20) H* 03/09/22 05:53 SARS CoV-2 RNA Rapid CLARA Negative (NEGATIVE) 03/03/22 17:25 Tissue Pathology To follow 03/04/22 13:34 Plan (1) Gram-positive bacteremia: Status: Acute Plan: IV antibiotics
[2022-03-09] MEDS: SEROquel TAB 25 mg PO SCH ×2 (21:14→22:34)
[2022-03-10] MEDS: NovoLIN R (or HumuLIN R) SUBCUT PRN ×3 (06:04→21:24)
[2022-03-10] MEDS: NEURONTIN TAB 600 MG PO SCH ×3 (06:10→21:24)
[2022-03-10] MEDS: NS 1,000 ML IV 1,000 ML IV SCH ×2 (06:11→21:03)
[2022-03-10 06:59] LABS: BASOPHILS # (AUTO) 0.1 X10^3/uL (0.0-0.1); EOSINOPHILS # (AUTO) 0.2 x10^3/uL (0.0-0.2); EOSINOPHILS % (AUTO) 2.1 % (0.9-2.9); HEMOGLOBIN 9.9 g/dL (12.0-16.0); LYMPHOCYTES # (AUTO) 2.1 X10^3/uL (1.3-2.9); LYMPHOCYTES % (AUTO) 23.1 % (21.0-51.0); MEAN CORPUSCULAR HGB CONC 32.1 g/dL (33.0-35.0); MEAN CORPUSCULAR VOLUME 81.2 fL (80.0-100.0); MEAN PLATELET VOLUME 9.2 fL (7.4-11.0); MONOCYTES # (AUTO) 0.7 x10^3/uL (0.3-0.8); NEUTROPHILS % (AUTO) 65.8 % (42.0-75.0); RED BLOOD COUNT 3.81 X10^6/uL (3.5-5.4); RED CELL DISTRIBUTION WIDTH 22.9 % (11.6-16.5); WHITE BLOOD COUNT 9.2 X10^3/uL (3.6-10.0)
[2022-03-10 07:27] LABS: ALANINE AMINOTRANSFERASE 11 Units/L (12-78); ALBUMIN 2.2 g/dL (3.4-5.0); ALKALINE PHOSPHATASE 76 Units/L (46-116); ASPARTATE AMINO TRANSFERASE 14 Units/L (15-37); BLOOD UREA NITROGEN 14 mg/dL (7-18); CALCIUM 8.8 mg/dL (8.5-10.1); CARBON DIOXIDE 23.2 mmol/L (21-32); CHLORIDE 105 mmol/L (98-107); COR CA(FOR HYPOALB) 10.2 mg/dL (8.5-10.1); COR NA(FOR HYPERGLY) 141 mmol/L (136-145); SODIUM 137 mmol/L (136-145); TOTAL PROTEIN 5.6 g/dL (6.4-8.2); eGFR NON BLACK RACES > 60 (>60)
[2022-03-10 07:36] LABS: PLATELET MORPHOLOGY COMMENT NORMAL (NORMAL)
[2022-03-10 07:37] LABS: ANISOCYTOSIS 2+; HYPOCHROMASIA SLIGHT
[2022-03-10 08:07] LABS: VANCOMYCIN,TROUGH 18.5 ug/mL (15-20)
[2022-03-10] MEDS: COREG TAB 25 MG PO SCH ×2 (08:40→21:23)
[2022-03-10] MEDS: SYNTHROID 100 mcg TAB PO SCH (08:40)
[2022-03-10] MEDS: ZYLOPRIM PO SCH (08:40)
[2022-03-10] MEDS: COZAAR PO SCH (08:40)
[2022-03-10] MEDS: LINZESS PO SCH (08:40)
[2022-03-10] MEDS: PROTONIX TAB 40 MG PO SCH ×2 (08:40→21:23)
[2022-03-10] MEDS: VANCOMYCIN IV *PREMIX 750 mg/150 ML BAG 750 MG/150 ML PIGGYBACK IV SCH (09:25)
[2022-03-10 15:37] VITALS: BMI 30.6
[2022-03-10] MEDS: SEROquel TAB 25 mg PO SCH (21:23)
[2022-03-11] MEDS: NEURONTIN TAB 600 MG PO SCH (05:48)
[2022-03-11] MEDS ORDERED: PHARMACY COMMENT IV ONE (08:30)
--- NOTE | 2022-03-11 08:51 | PCM.PROG ---
Progress Note Progress Note for Day of Date of Exam: 03/10/22 Subjective Subjective: Pt is a 86 year old female admitted for bacteremia with blood cultures positive for Staphylococcus haemolyticus. This morning she is doing well with no acute concerns or events overnight. We will continue to finish a course of IV therapy with Vancomycin today and plan on discharge home in the morning. Past Medical Family Social History Past Med/Fam/Surg Hx: No changes since H&P Allergies: Allergies codeine Allergy (Verified 12/19/21 13:53) Review of Systems ROS: No change since H&P Vital Signs and I&O's Vital Signs: Temperature 98.6 F Pulse Rate [Left Brachial] 69 Pulse Rate [Left Radial] 74 Pulse Rate 83 Respiratory Rate 20 Blood Pressure [Left Arm] 137/58 Blood Pressure 133/96 O2 Sat by Pulse Oximetry 93 Intake and Output: Intake & Output 03/08/22 03/09/22 03/10/22 03/11/22 11:59 11:59 11:59 11:59 Intake Total 1060 / 1060 2369 / 2369 1536 / 1536 909 / 909 Balance 1060 / 1060 2369 / 2369 1536 / 1536 909 / 909 Physical Exam Oriented: Normal Eyes: Normal Ear: Normal Nose: Normal Throat: Normal Respiratory: Normal Cardiovascular: Normal Tenderness: Normal Skin: Other (dressings are clean and dry ..) Speech Pattern: Clear and Appropriate Laboratory and Diagnostics Result Diagrams: 03/10/22 05:45 03/10/22 05:45 Labs: 03/03/22 15:20 Blood Blood Culture - Final 03/04/22 13:40 Leg - Left Wound Gram Stain - Final 03/04/22 13:40 Leg - Left Wound Culture - Final Staphylococcus Haemolyticus 03/03/22 15:05 Blood Blood Culture - Final Staphylococcus Haemolyticus 03/03/22 16:52 Urine,Catheterized Urine Culture - Final Laboratory WBC 9.2 X10^3/uL (3.6-10.0) 03/10/22 05:45 RBC 3.81 X10^6/uL (3.5-5.4) 03/10/22 05:45 Hgb 9.9 g/dL (12.0-16.0) L 03/10/22 05:45 Hct 31.0 % (36.0-47.0) L 03/10/22 05:45 MCV 81.2 fL (80.0-100.0) 03/10/22 05:45 MCH 26.0 pg (27.0-34.0) L 03/10/22 05:45 MCHC 32.1 g/dL (33.0-35.0) L 03/10/22 05:45 RDW 22.9 % (11.6-16.5) H 03/10/22 05:45 Plt Count 332 X10^3/uL (150.0-450.0) 03/10/22 05:45 Plt Count Comment Adequate (ADEQUATE) 03/10/22 05:45 MPV 9.2 fL (7.4-11.0) 03/10/22 05:45 Neut % (Auto) 65.8 % (42.0-75.0) 03/10/22 05:45 Lymph % (Auto) 23.1 % (21.0-51.0) 03/10/22 05:45 [place] % (Auto) 8.0 % (0.0-13.0) 03/10/22 05:45 Eos % (Auto) 2.1 % (0.9-2.9) 03/10/22 05:45 Baso % (Auto) 1.0 % (0.2-1.0) 03/10/22 05:45 Neut # (Auto) 6.0 x10^3/uL (2.2-4.8) H 03/10/22 05:45 Lymph # (Auto) 2.1 X10^3/uL (1.3-2.9) 03/10/22 05:45 [place] # (Auto) 0.7 x10^3/uL (0.3-0.8) 03/10/22 05:45 Eos # (Auto) 0.2 x10^3/uL (0.0-0.2) 03/10/22 05:45 Baso # (Auto) 0.1 X10^3/uL (0.0-0.1) 03/10/22 05:45 Absolute Nucleated RBC 0.1 /100WBC 03/10/22 05:45 Plt Morphology Comment Normal (NORMAL) 03/10/22 05:45 RBC Morphology Abnormal (NORMAL) A 03/10/22 05:45 Hypochromasia Slight A 03/10/22 05:45 Anisocytosis 2+ A 03/10/22 05:45 Microcytosis Slight A 03/04/22 06:09 Target Cells Present 03/08/22 05:05 Schistocytes Present 03/08/22 05:05 Sodium 137 mmol/L (136-145) 03/10/22 05:45 Corrected Sodium 141 mmol/L (136-145) 03/10/22 05:45 Potassium 4.1 mmol/L (3.5-5.1) 03/10/22 05:45 Chloride 105 mmol/L (98-107) 03/10/22 05:45 Carbon Dioxide 23.2 mmol/L (21-32) 03/10/22 05:45 BUN 14 mg/dL (7-18) 03/10/22 05:45 Creatinine 0.80 mg/dL (0.55-1.02) 03/10/22 05:45 Est GFR (MDRD) Af Amer > 60 (>60) 03/10/22 05:45 Est GFR (MDRD) Non-Af > 60 (>60) 03/10/22 05:45 Glucose 267 mg/dL (65-99) H 03/10/22 05:45 POC Glucose (mg/dL) 185 mg/dL (65-99) H 03/11/22 05:59 Calcium 8.8 mg/dL (8.5-10.1) 03/10/22 05:45 Corrected Calcium 10.2 mg/dL (8.5-10.1) H 03/10/22 05:45 Magnesium 1.9 mg/dL (1.7-2.9) 03/09/22 05:53 Total Bilirubin 0.20 mg/dL (0.2-1.0) 03/10/22 05:45 AST 14 Units/L (15-37) L 03/10/22 05:45 ALT 11 Units/L (12-78) L 03/10/22 05:45 Alkaline Phosphatase 76 Units/L (46-116) 03/10/22 05:45 Total Protein 5.6 g/dL (6.4-8.2) L 03/10/22 05:45 Albumin 2.2 g/dL (3.4-5.0) L 03/10/22 05:45 Globulin 3.4 g/dL (2.5-4.5) 03/10/22 05:45 Albumin/Globulin Ratio 0.6 Ratio (1.1-2.1) L 03/10/22 05:45 Specimen Type Catherized urine 03/03/22 16:52 Urine Color Yellow (YELLOW) 03/03/22 16:52 Urine Appearance Cloudy (CLEAR) 03/03/22 16:52 Urine pH 5.0 (5.0 - 8.0) 03/03/22 16:52 Ur Specific [place] 1.015 (1.000-1.030) 03/03/22 16:52 Urine Protein 2+ (NEGATIVE) 03/03/22 16:52 Urine Glucose (UA) Negative (NEGATIVE) 03/03/22 16:52 Urine Ketones 1+ (NEGATIVE) 03/03/22 16:52 Urine Blood 5+ (NEGATIVE) 03/03/22 16:52 Urine Nitrite Negative (NEGATIVE) 03/03/22 16:52 Urine Bilirubin Negative (NEGATIVE) 03/03/22 16:52 Urine Urobilinogen Normal (NORMAL) 03/03/22 16:52 Ur Leukocyte Esterase 3+ (NEGATIVE) 03/03/22 16:52 Urine RBC Tntc /HPF (0-3) A 03/03/22 16:52 Urine WBC Tntc /HPF (0-5) A 03/03/22 16:52 Ur Squamous Epith Cells Rare /HPF (NEGATIVE) 03/03/22 16:52 Urine Bacteria Trace /HPF (NEGATIVE) 03/03/22 16:52 Ur Culture Indicated? Yes/culture set up 03/03/22 16:52 Vancomycin Trough 18.5 ug/mL (15-20) 03/10/22 05:45 SARS CoV-2 RNA Rapid CLARA Negative (NEGATIVE) 03/03/22 17:25 Tissue Pathology To follow 03/04/22 13:34 Plan (1) Gram-positive bacteremia: Status: Acute Plan: IV antibiotics
[2022-03-11] MEDS: COZAAR PO SCH (09:34)
[2022-03-11] MEDS: SYNTHROID 100 mcg TAB PO SCH (09:34)
[2022-03-11] MEDS: PROTONIX TAB 40 MG PO SCH (09:34)
[2022-03-11] MEDS: COREG TAB 25 MG PO SCH (09:34)
[2022-03-11] MEDS: LINZESS PO SCH (09:34)
[2022-03-11] MEDS: ZYLOPRIM PO SCH (09:35)
[2022-03-11] MEDS: VANCOMYCIN IV *PREMIX 750 mg/150 ML BAG 750 MG/150 ML PIGGYBACK IV SCH (09:35)
[2022-03-11] MEDS: NS 1,000 ML IV 1,000 ML IV SCH (11:46)
[2022-03-11 12:15] VITALS: BP 142/68
--- NOTE | 2022-03-27 10:33 | DR.EXTPAIN ---
HPI Time seen Time Seen by Provider: 03/03/22 14:31 PCP Primary Care Physician: DR. VERDUZCO HPI Comment HPI Comment: PATIENT IS 86YR OLD FEMALE IN ER WITH BELOW HISTORY. HERE VIA EMS. Complaint/Symptoms Chief Complaint Doctor Comments: BLISTER LEFT LOWER LEG NOTED YESTERDAY AND ULCERS SACRUM AND HEELS FOR FEW WEEKS. PATIENT SAID SYMPTOMS WORSE TODAY. PAIN IS SHARP 6/10. NO FEVER. Chief Complaint:: Pt c/o blister to posterior left lower leg. EMS reports daughter noticed this yesterday. Pt has wound to left heel and sacral area. Pt c/o pain to these areas. COVID-19 Coronavirus risk:travel/contact w/high risk person: No Has patient experienced Coronavirus symptoms: No Nurses notes reviewed Nurses Notes Review: Yes Source History Provided: Patient and EMS Mode of arrival Mode of Arrival: Stretcher Timing Onset of Chief Complaint: 03/03/22 Context History of: Arthritis Associated signs and symptoms Associated Signs and Symptoms: Weakness and Pain Other history Other History: DM, HTN, CHF,CAD. PMH PMH Past Medical History: Yes Past Medical History: CHF, Coronary Artery Disease, Diabetes, Dyslipidemia, Migraines, Hypertension and Hypothyroidism Past Surgical History: Yes Surgical History: Cholecystectomy and Hysterectomy Family History History of Family Medical Conditions: Yes Family Medical History: Diabetes Mellitus and Hypertension Social History Does patient currently use any type of tobacco product: No Have you used tobacco products in the last 12 months: No Type of Tobacco Use: None Does any household member use tobacco: No Alcohol Use: None Do you use any recreational Drugs:: No Lives With: Family Lives Where: Home Travel Risk Coronavirus risk:travel/contact w/high risk person: No Has patient experienced Coronavirus symptoms: No Infectious screening In the last 2 months have you had wt loss of >10#?: NO Have you had fever, night sweats or hemotysis?: No Have you traveled outside the country in the last 6 months?: No Isolation: Standard ROS Review of Systems Constitutional: No Symptoms Reported and See HPI; negative Fever, Weakness and Fatigue Eyes: No Symptoms Reported and See HPI ENTM: No Symptoms Reported and See HPI; negative Nose Discharge and Nose Congestion Respiratoy: No Symptoms Reported and See HPI; negative Moist Cough, Short of Breath and Wheezing Cardiovascular: No Symptoms Reported and See HPI; negative Chest Pain Gastrointestinal/Abdominal: No Symptoms Reported and See HPI; negative Abdominal Pain, Diarrhea, Nausea and Vomiting Genitourinary: No Symptoms Reported and See HPI; negative Dysuria Neurological: No Symptoms Reported and See HPI; negative Headache, Weakness and Dizziness Musculoskeletal: No Symptoms Reported, See HPI and Leg (LLE REDENESS, SWELLING AND PAIN.) Integumentary: No Symptoms Reported and Wound (CELLULITIS LLE AND SACRAL AND HEEL DECUBITUS ULCERS.) Hematologic/Lymphatic: No Symptoms Reported and See HPI; negative Easy Bruising and Swollen Glands Endocrine: No Symptoms Reported and See HPI; negative Increased Thirst and Increased Urine Psychiatric: No Symptoms Reported and See HPI All Other Systems: Reviewed and Negative PE Vital Signs Vitals: Temperature 98.2 F Pulse Rate 83 Respiratory Rate 20 Blood Pressure [Left Arm] 166/72 Blood Pressure 133/96 O2 Sat by Pulse Oximetry 96 General Limitations: No Limitations General Appearance: Alert and In No Apparent Distress Head Head Exam: Normal Inspection Eyes Eye exam: Normal Appearance; negative Scleral Icterus and Conjunctival Injection ENT ENT Exam: Normal Exam, Normal Oropharynx, Normal External Ear Exam and TM's Nor mal Bilaterally Neck Neck Exam: Normal Inspection and Trachea Midline; negative Tenderness Chest Chest Inspection: Normal Inspection and Symmetric Chest Wall Rise; negative Tenderness Respiratory Respiratory Exam: Normal Lung Sounds Bilat; negative Accessory Muscle Use, Chest Wall Tenderness and Respiratory Distress Respiratory Exam: Bilateral: Rhonchi and Lower: Rhonchi Cardiovascular Cardiovascular Exam: Regular Rate, Normal Rhythm and Normal Heart Sounds; negative Systolic Murmur and Diastolic Murmur Abdominal Exam Abdominal Exam: Normal Inspection, Normal Bowel Sounds and Soft; negative Tenderness Extremities Extremities Exam: Normal Inspection, Tenderness (LLE REDNESS AND TENDERNESS WITH SWELLING.), Normal Capillary Refill and Other (HEEL DECUBITUS) Lower Extremities Neurovascular/Tendon Exam: Normal Capillary Refill; negative Pulse Deficit, Motor Deficit and Sensory Deficit Back Back Exam: Other (SACRAL DECUBITUS.) Neurological Neurological Exam: Alert and Oriented X3; negative Motor Sensory Deficit Psychiatric Psychiatric Exam: Normal Affect and Normal Mood Skin Skin Exam: Erythema Type of Lesion: Abscess (REDNESS AND TENDERNESS LEFT LEG.) Distribution: LLE Description: Tenderness and Erythematous MDM Differential Diagnosis Differential Diagnosis: Other (CELLUITIS LLE, DECUBITS ULCERS SACRUM AND HEELS, UTI.) COURSE Treatment Treatment: SEE ORDERS DONE WHILE PATIENT WAS IN ER. PATIENT WAS GIVEN ANTIBIOTIC AND PAIN MEDICATION WHILE SHE WAS IN ER. LABS WERE DISCUSSED AND SHE WAS ADMITTTED TO HOSPITAL. Reevaluation 1st: Improved (PAIN IMPROVING.) Consultation Consultation Comments: DISCUSSED PATIENT WITH DR. CLAUDIO. HE WILL ADMIT PATIENT. Education/Counseling Education/Counseling: Patient Educated On: Diagnosis ROR Labs Reviewed Laboratory Results Reviewed?: Yes Result Diagrams: 03/10/22 05:45 03/10/22 05:45 Laboratory: 03/03/22 15:20 Blood Blood Culture - Final 03/03/22 15:05 Blood Blood Culture - Final Staphylococcus Haemolyticus 03/03/22 16:52 Urine,Catheterized Urine Culture - Final WBC 11.3 X10^3/uL (3.6-10.0) H 03/03/22 15:05 RBC 4.20 X10^6/uL (3.5-5.4) 03/03/22 15:05 Hgb 10.9 g/dL (12.0-16.0) L 03/03/22 15:05 Hct 33.7 % (36.0-47.0) L 03/03/22 15:05 MCV 80.1 fL (80.0-100.0) 03/03/22 15:05 MCH 26.0 pg (27.0-34.0) L 03/03/22 15:05 MCHC 32.5 g/dL (33.0-35.0) L 03/03/22 15:05 RDW 23.1 % (11.6-16.5) H 03/03/22 15:05 Plt Count 372 X10^3/uL (150.0-450.0) 03/03/22 15:05 Plt Count Comment Adequate (ADEQUATE) 03/03/22 15:05 MPV 8.6 fL (7.4-11.0) 03/03/22 15:05 Neut % (Auto) 69.4 % (42.0-75.0) 03/03/22 15:05 Lymph % (Auto) 20.8 % (21.0-51.0) L 03/03/22 15:05 [place] % (Auto) 7.1 % (0.0-13.0) 03/03/22 15:05 Eos % (Auto) 1.6 % (0.9-2.9) 03/03/22 15:05 Baso % (Auto) 1.1 % (0.2-1.0) H 03/03/22 15:05 Neut # (Auto) 7.8 x10^3/uL (2.2-4.8) H 03/03/22 15:05 Lymph # (Auto) 2.3 X10^3/uL (1.3-2.9) 03/03/22 15:05 [place] # (Auto) 0.8 x10^3/uL (0.3-0.8) 03/03/22 15:05 Eos # (Auto) 0.2 x10^3/uL (0.0-0.2) 03/03/22 15:05 Baso # (Auto) 0.1 X10^3/uL (0.0-0.1) 03/03/22 15:05 Absolute Nucleated RBC 0.0 /100WBC 03/03/22 15:05 Plt Morphology Comment Normal (NORMAL) 03/03/22 15:05 RBC Morphology Abnormal (NORMAL) A 03/03/22 15:05 Anisocytosis 1+ A 03/03/22 15:05 Sodium 135 mmol/L (136-145) L 03/03/22 15:05 Corrected Sodium 137 mmol/L (136-145) 03/03/22 15:05 Potassium 5.0 mmol/L (3.5-5.1) 03/03/22 15:05 Chloride 102 mmol/L (98-107) 03/03/22 15:05 Carbon Dioxide 24.1 mmol/L (21-32) 03/03/22 15:05 BUN 24 mg/dL (7-18) H 03/03/22 15:05 Creatinine 1.28 mg/dL (0.55-1.02) H 03/03/22 15:05 Est GFR (MDRD) Af Amer 51 (>60) L 03/03/22 15:05 Est GFR (MDRD) Non-Af 42 (>60) L 03/03/22 15:05 Glucose 163 mg/dL (65-99) H 03/03/22 15:05 Calcium 10.1 mg/dL (8.5-10.1) 03/03/22 15:05 Corrected Calcium 11.1 mg/dL (8.5-10.1) H 03/03/22 15:05 Total Bilirubin 0.40 mg/dL (0.2-1.0) 03/03/22 15:05 AST 24 Units/L (15-37) 03/03/22 15:05 ALT 16 Units/L (12-78) 03/03/22 15:05 Alkaline Phosphatase 100 Units/L (46-116) 03/03/22 15:05 Total Protein 7.1 g/dL (6.4-8.2) 03/03/22 15:05 Albumin 2.8 g/dL (3.4-5.0) L 03/03/22 15:05 Globulin 4.3 g/dL (2.5-4.5) 03/03/22 15:05 Albumin/Globulin Ratio 0.7 Ratio (1.1-2.1) L 03/03/22 15:05 Specimen Type Catherized urine 03/03/22 16:52 Urine Color Yellow (YELLOW) 03/03/22 16:52 Urine Appearance Cloudy (CLEAR) 03/03/22 16:52 Urine pH 5.0 (5.0 - 8.0) 03/03/22 16:52 Ur Specific [place] 1.015 (1.000-1.030) 03/03/22 16:52 Urine Protein 2+ (NEGATIVE) 03/03/22 16:52 Urine Glucose (UA) Negative (NEGATIVE) 03/03/22 16:52 Urine Ketones 1+ (NEGATIVE) 03/03/22 16:52 Urine Blood 5+ (NEGATIVE) 03/03/22 16:52 Urine Nitrite Negative (NEGATIVE) 03/03/22 16:52 Urine Bilirubin Negative (NEGATIVE) 03/03/22 16:52 Urine Urobilinogen Normal (NORMAL) 03/03/22 16:52 Ur Leukocyte Esterase 3+ (NEGATIVE) 03/03/22 16:52 Urine RBC Tntc /HPF (0-3) A 03/03/22 16:52 Urine WBC Tntc /HPF (0-5) A 03/03/22 16:52 Ur Squamous Epith Cells Rare /HPF (NEGATIVE) 03/03/22 16:52 Urine Bacteria Trace /HPF (NEGATIVE) 03/03/22 16:52 Ur Culture Indicated? Yes/culture set up 03/03/22 16:52 SARS CoV-2 RNA Rapid CLARA Negative (NEGATIVE) 03/03/22 17:25 Opioid Opioid Risk Tool Age (Hugo box if 16-45): No History of Preadolescent Sexual Abuse: No Total: 0 Total Score Risk Category: Low Risk Copyright: Jhonny BEE predicting aberrant behaviors Diagnosis Discharge Problem: Cellulitis of left lower extremity Decubitus ulcers Qualifiers: Pressure injury location: sacral region Pressure injury stage: unspecified pressure injury stage Qualified Code(s): L89.159 - Pressure ulcer of sacral region, unspecified stage UTI (urinary tract infection) Qualifiers: Urinary tract infection type: site unspecified Hematuria presence: with hematuria Qualified Code(s): N39.0 - Urinary tract infection, site not specified Instructions Instructions: How to Change Your Wound Dressing, [id number] Preventing Pressure Injuries Urinary Tract Infection, Adult, Uxol-el-Axeg Surgical Wound Debridement, Care After Blood Glucose Monitoring, Adult Hypertension Forms: Precautions for COVID19 [facility] Social Distancing
== END 2022-03-11 12:03 | disposition home health service (06) | DRG 854 ==
LOC: ER 13:45 → MED/SURG 20:21
PROVIDERS: ADMIT Obstetrics & Gynecology Obstetrics; ATTEND Family Medicine
DX: I10 Essential (primary) hypertension; L89.629 Pressure ulcer of left heel, unspecified stage; E03.8 Other specified hypothyroidism; R78.81 Bacteremia; L03.116 Cellulitis of left lower limb; N39.0 Urinary tract infection, site not specified; E11.65 Type 2 diabetes mellitus with hyperglycemia; I25.10 Atherosclerotic heart disease of native coronary artery without angina pectoris; B95.2 Enterococcus as the cause of diseases classified elsewhere; L89.619 Pressure ulcer of right heel, unspecified stage; B95.7 Other staphylococcus as the cause of diseases classified elsewhere; L89.159 Pressure ulcer of sacral region, unspecified stage; E78.2 Mixed hyperlipidemia